=== PATIENT | female | born 1940 | race Caucasian/White ===

== ENCOUNTER 2019-07-09 10:50 | Emergency (ER) | payer MEDICARE, SELFPAY ==
--- NOTE | ~2019-07-09 | XR_ITS ---
EXAMINATION: XR chest 2V DATE: 07/09/2019 11:30 INDICATION: Upper left-sided chest pain. TECHNIQUE: Frontal and lateral views of the chest were obtained. COMPARISON: Chest single view 03/31/2017, chest CT 03/06/2019 FINDINGS: There is mild atelectasis in the lower lung zones. No pleural effusion or pneumothorax. The heart size is normal. Median sternotomy wires and mediastinal surgical clips are seen, likely from p rior coronary artery bypass grafting. IMPRESSION: 1. Mild atelectasis in the lower lung zones. Reviewed, dictated and finalized at location A. ER MANAGEMENT SPECIALIST
--- NOTE | 2019-07-09 11:00 | ECG_ITS ---
Measurements Intervals [place] Rate: 83 P: 60 IA: 164 QRS: 18 QRSD: 129 T: 29 QT: 385 QTc: 453 Interpretive Statements SINUS RHYTHM RIGHT BUNDLE BRANCH BLOCK BASELINE ARTIFACT- I, II, III ABNORMAL ECG Electronically Signed On 07-09-2019 15:18:29 CHEMISTRY INSTRUCTOR by Kevin Mckeon D.O.
[2019-07-09 11:01] VITALS: BP 191/89; PULSE 78; RESP 17; TEMP 36.5; O2SAT 94
[2019-07-09 11:05] VITALS: PULSE 78
[2019-07-09 11:10] LABS: Basophils Percent Auto 0.5 % (0.2-1.2); Eosinophils Absolute Auto 0.1 K/mm3 (0-0.3); Eosinophils Percent Auto 1.4 % (0-4.4); Hematocrit 39.3 % (37.0-47.0); Immature Granulocyte Absolute 0.02 K/mm3 (0.00-0.031); Immature Granulocyte Percent A 0.3 % (0-0.5); Lymphocytes Percent Auto 25.4 % (18.3-44.2); Mean Corpuscular HGB Conc 33.1 g/dl (32-36); Mean Corpuscular Hemoglobin 33.4 pg (26-34); Monocytes Absolute Auto 0.7 K/mm3 (0.1-0.6); Monocytes Percent Auto 9.3 % (2.6-8.5); Neutrophils Percent Auto 63.1 % (45.5-73.1); Platelet Count Result 233 k/mm3 (150-375); Red Blood Count 3.89 M/mm3 (4.2-5.4); Red Cell Distribution Width 12.8 % (11.5-14.5); White Blood Count 7.9 K/mm3 (4.5-10.0)
--- NOTE | 2019-07-09 11:19 | ED.CHESTPAIN ---
HPI - Chest Pain General Chief Complaint: Chest Pain Stated Complaint: cp Time Seen by Provider: 07/09/19 10:57 Source: patient and RN notes reviewed Mode of arrival: ambulatory Limitations: no limitations History of Present Illness HPI narrative: Pt is an 79 y/o female presenting to the ED c/o CP. Pt reports she started experiencing lt sided CP radiating to her upper back this morning when she woke up at 0700. Pt states she has Hx's of CABG x3 and NH 3 years ago, but states her current pain does not feel similar to the previous experience of NH. Pt states she occasionally develops soreness in her lt sided CP intermittent after the CABG. Pt also reports anxiety, ZAFAR, and fatigue, but denies SOB. Pt states she sees Dr. Guillermo as her Housing Counselor, noting she last saw him a few weeks ago. Pt notes she lives alone at her house. Pt notes the pain has alleviated since onset. Pertinent past history: prior NH and CABG (x3) Onset (ago): hour(s) (4) Pain location: left chest Pain radiation: back (Upper) Associated symptoms: other (Anxiety; Headache; Fatigue) Related Data Home Medications Medication Instructions Recorded Confirmed aspirin 07/09/19 carvedilol 07/09/19 lisinopril 07/09/19 Allergies Allergy/AdvReac Type Severity Reaction Status Date / Time No Known Allergies Allergy Unknown Unverified 07/09/19 11:04 Review of Systems Review of Systems: All systems reviewed & are unremarkable except as noted in HPI and below Constitutional: Constitutional: Reports fatigue Cardiovascular: Cardiovascular: Reports chest pain (Lt sided) Respiratory: Respiratory: Reports dyspnea Neurologic: Reports headache(s) Psychiatric: Psychiatric: Reports anxiety PMFSH Past Medical History Medical History Arthritis GERD (gastroesophageal reflux disease) History of blood transfusion HLD (hyperlipidemia) HTN (hypertension) Kidney stone Myocardial infarction Shingles Shoulder fracture Surgical History Surgical History H/O cardiac catheterization H/O: hysterectomy S/P CABG x 3 Family History Family History Mother Hypertension Sibling Patient's sister is in good health Social History Social History Smoking status: Never smoker Alcohol intake: never Gender identity (if verbalized by the patient): Female Exam Const: General: no acute distress and alert Nutritional Appearance: well nourished Other: Frail; Elderly HENMT: Mouth: Yes lip normal Eyes: Conjunctivae: conjunctivae normal Chest: Chest palpation & inspection: tenderness (Mild lt sided) Resp: Effort & Inspection: normal respiratory effort Auscultation: clear to auscultation bilaterally Cardio: Rate: regular rate Rhythm: regular rhythm Back/Spine/Pelvis: Other: Full ROM Skin: General skin exam: normal color Other: Warm; Dry Neuro: General: patient oriented x3 Speech: normal speech Extrem: General: full ROM Psych: Mental Status: mental status grossly normal Affect: Anxious affect present Course Vital Signs Vital signs: Vital Signs Temperature 36.5 C 07/09/19 11:01 Pulse Rate 78 07/09/19 11:01 Respiratory Rate 17 07/09/19 11:01 Blood Pressure 191/89 H 07/09/19 11:01 Pulse Oximetry 94 07/09/19 11:01 Temperature 36.5 C 07/09/19 11:01 Pulse Rate 76 07/09/19 14:57 Respiratory Rate 18 07/09/19 14:57 Blood Pressure 165/67 H 07/09/19 14:57 Pulse Oximetry 98 07/09/19 14:57 MDM - Chest Pain MDM Narrative Medical decision making narrative: Pain is only mildly concerning for cardiac origin. She was initially very anxious. Pain improved spontaneously. No concerning changes on EKG. Troponin negative at 0 and 3 hours. Medical Records Data Attestation: I reviewed the patient's medical records. Lab Data Attestation: I reviewed the pa
[2019-07-09 11:21] LABS: Blood Urea Nitrogen 26 mg/dL (7-17); Calcium 9.8 mg/dL (8.4-10.2); Carbon Dioxide 26 mmol/L (22-30); Chloride 104 mmol/L (98-107); Estimated CRCL calculation 21 ml/min; Estimated Glomerular Filt Rate 33; Glucose 118 mg/dL (65-105); Potassium 4.4 mmol/L (3.4-5.0); Sodium 140 mmol/L (137-145)
[2019-07-09 11:26] LABS: Prothrombin Time 12.4 Seconds (11.1-14.7)
[2019-07-09 11:27] LABS: Partial Thromboplastin Time 25.8 SECONDS (22.3-36.8)
[2019-07-09 11:33] LABS: Troponin I < 0.012 ng/mL (0.000-0.034)
[2019-07-09 12:25] VITALS: BP 161/77; PULSE 66; RESP 18; O2SAT 97
[2019-07-09 13:22] VITALS: BP 181/68; PULSE 67; RESP 18; O2SAT 97
[2019-07-09 14:27] LABS: Troponin I < 0.012 ng/mL (0.000-0.034)
[2019-07-09 14:57] VITALS: BP 165/67; PULSE 76; RESP 18; O2SAT 98
== END 2019-07-09 14:58 | disposition home or self-care (01) ==
PROVIDERS: Emergency Provider Emergency Medicine; PCP Family Medicine
DX: R07.9 Chest pain, unspecified (principal); Z95.1 Presence of aortocoronary bypass graft; I25.10 Atherosclerotic heart disease of native coronary artery without angina pectoris; M19.90 Unspecified osteoarthritis, unspecified site; K21.9 Gastro-esophageal reflux disease without esophagitis; E78.5 Hyperlipidemia, unspecified; I10 Essential (primary) hypertension; Z87.442 Personal history of urinary calculi; I25.2 Old myocardial infarction; I45.10 Unspecified right bundle-branch block
CPT/HCPCS: 36415; 71046; 80048; 84484; 85025; 85610; 85730; 93005; 99284

== ENCOUNTER 2019-08-06 10:35 | Outpatient (CLI) | payer MEDICARE, SELFPAY ==
--- NOTE | ~2019-08-06 | US_ITS ---
EXAMINATION: US carotid duplex BI DATE: 08/06/2019 12:03 INDICATION: Bilateral carotid artery stenosis. TECHNIQUE: Grayscale, color Doppler, and pulsed Doppler images of the cervical carotid arteries were obtained. The degree of vessel stenosis is placed in one of the following categories: normal, <50%, 5 0-69%, >=70% but less than near-occlusion, near-occlusion, or total occlusion. Note that percent sten osis relative to normal distal artery lumen diameter is indirectly measured from velocity measurement s as described by Noble, et al. Radiology 2003; 229:340-346. COMPARISON: Ultrasound 07/20/2018 FINDINGS: RIGHT: The right common carotid artery (CCA) peak systolic velocity (PSV) is 88 cm/s. The right internal car otid artery (ICA) PSV is 163 cm/s. The right ICA end-diastolic velocity (EDV) is 49 cm/s. The right I CA/CCA PSV ratio is 1.9. Grayscale and color Doppler images yield an estimate of >=50% diameter reduc tion from plaque in the ICA. There is antegrade flow in the right vertebral artery. LEFT: The left CCA PSV is 74 cm/s. The left ICA PSV is 170 cm/s. The left ICA EDV is 47 cm/s. The left ICA/ CCA PSV ratio is 2.3. Grayscale and color Doppler images yield an estimate of >=50% diameter reductio n from plaque in the ICA. There is antegrade flow in the left vertebral artery. IMPRESSION: 1. 50-69% stenosis in the right internal carotid artery. 2. 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 Reviewed, dictated and finalized at location A.
== END 2019-08-06 10:36 | disposition home or self-care (01) ==
LOC: ANHIMG 10:46
PROVIDERS: PCP Family Medicine; Visit Provider Internal Medicine Cardiovascular Disease
DX: I65.23 Occlusion and stenosis of bilateral carotid arteries (principal)
CPT/HCPCS: 93880

== ENCOUNTER 2019-12-15 09:21 | Outpatient (CLI) | payer MEDICARE, SELFPAY ==
[2019-12-15 10:47] LABS: Alanine Aminotransferase 17 U/L (4-35); Albumin Level 4.5 g/dL (3.5-5.1); Alkaline Phosphatase 67 U/L (38-126); Aspartate Amino Transferase 27 U/L (14-36); Bilirubin,Total 0.5 mg/dL (0.2-1.3); Blood Urea Nitrogen 30 mg/dL (7-17); Calcium 9.3 mg/dL (8.4-10.2); Carbon Dioxide 26 mmol/L (22-30); Chloride 103 mmol/L (98-107); Cholesterol 167 mg/dL (0-200); Estimated Glomerular Filt Rate 33; Glucose 100 mg/dL (65-105); HDL Direct 61 mg/dL; Potassium 4.7 mmol/L (3.4-5.0); Sodium 138 mmol/L (137-145); Triglycerides 129 mg/dL (<150)
[2019-12-15 10:57] LABS: LDL Cholesterol Direct 75 mg/dL
[2019-12-15 11:55] LABS: Folic Acid > 20.0 ng/mL (2.76->20)
[2019-12-20 05:19] LABS: Methylmalonic Acid 405 nmol/L (87-318)
[2019-12-20 11:19] LABS: Vitamin D 1,25 (OH)2 Total 27 pg/mL (18-72); Vitamin D2 1,25 (OH)2 <8 pg/mL; Vitamin D3 1,25 (OH)2 27 pg/mL
== END 2019-12-15 09:22 | disposition home or self-care (01) ==
PROVIDERS: PCP Family Medicine; Visit Provider Family Medicine
DX: E53.8 Deficiency of other specified B group vitamins (principal); E78.2 Mixed hyperlipidemia; I10 Essential (primary) hypertension; E55.9 Vitamin D deficiency, unspecified
CPT/HCPCS: 36415; 80053; 80061; 82607; 82652; 82746; 83090; 83921

== ENCOUNTER → 2020-01-03 11:29 | Outpatient (CLI) | payer MEDICARE, SELFPAY ==
--- NOTE | ~2020-01-03 | DEXA_ITS ---
Bone Density Report Name: Geraldine Anthony Age: 79 Sex: Female Ethnicity: White Date of : 1940 Indication: osteopenia; height loss; hysterectomy; postmenopausal Referring Provider: DEVAUGHN PEÑALOZA Study: Bone densitometry was performed. Exam Date: January 03, 2020 Accession number: [id number] Bone Density: Region BMD T-score Z-score Classification AP Spine (L1, L4) 0.898 -1.3 1.4 Osteopenia Femoral Neck (Left) 0.528 -2.9 -0.5 Osteoporosis Total Hip (Left) 0.716 -1.9 0.3 Osteopenia Femoral Neck (Right) 0.533 -2.8 -0.5 Osteoporosis Total Hip (Right) 0.724 -1.8 0.3 Osteopenia Total Hip Mean 0.720 -1.9 0.3 Osteopenia World Health Organization criteria for BMD impression classify patients as: Normal (T-score at or above -1.0), Osteopenia (T-score between -1.0 and -2.5), or Osteoporosis (T-score at or below -2.5). 10-year Fracture Risk: FRAX not reported because: Some T-score for Spine Total or Hip Total or Femoral Neck at or below -2.5 Previous Exams: Region Exam Age BMD T-score BMD Change BMD Change Date g/cm2 vs Baseline vs Previous AP Spine(L1, L4) 01/03/2020 79 0.898 -1.3 -0.084* -0.084* 08/23/2015 75 0.981 -0.5 Total Hip(Left) 01/03/2020 79 0.716 -1.9 -0.074* -0.074* 08/23/2015 75 0.790 -1.2 Total Hip(Right) 01/03/2020 79 0.724 -1.8 -0.081* -0.081* 08/23/2015 75 0.805 -1.1 *Denotes significance at 95% confidence level, LSC for AP Spine = 0.022 g/cm2, LSC for Total Hip = 0.027 g/cm2 Clinical Information Provided by Patient: Has used the following medications: Vitamin D Has the following medical conditions: Hysterectomy Patient maximum height was 62.5 Menopause Age: 49 No regular weight bearing exercise Does not regularly consume dairy products Onset of menses at age 12 Number of children 3 Impression: The patient has osteoporosis, based on the Left Femoral Neck T-score. The BMD for the AP Spine(L1, L4) decreased, changing by -0.084 since the last DXA exam. The BMD for the Total Hip(Left) decreased, changing by -0.074 since the last DXA exam. The BMD for the Total Hip(Right) decreased, changing by -0.081 since the last DXA exam. Discussion: INCREASED RISK OF FRACTURE. BONE DENSITY IS UNDESIRABLY LOW AT ONE OR MORE SKELETAL SITES, CONSISTENT WITH POSTMENOPAUSAL OSTEOPOROSIS. This patient's lowest T-score meets the World Health Organization's (WHO) criteria for osteoporosis at o
== END ==
PROVIDERS: PCP Family Medicine; Visit Provider Family Medicine
DX: Z78.0 Asymptomatic menopausal state (principal); M85.89 Other specified disorders of bone density and structure, multiple sites; M81.0 Age-related osteoporosis without current pathological fracture
CPT/HCPCS: 77080

== ENCOUNTER 2020-01-13 08:18 | Emergency (ER) | payer MEDICARE, SELFPAY ==
[2020-01-13 08:22] VITALS: BP 212/101; PULSE 94; RESP 17; TEMP 36.8; O2SAT 98
--- NOTE | 2020-01-13 08:29 | ECG_ITS ---
Measurements Intervals [place] Rate: 80 P: 62 NH: 157 QRS: 33 QRSD: 128 T: 31 QT: 378 QTc: 437 Interpretive Statements SINUS RHYTHM RIGHT BUNDLE BRANCH BLOCK BASELINE WANDER- V1 ABNORMAL ECG Electronically Signed On 01-13-2020 9:51:39 CDT by Kevin Mckeon D.O.
[2020-01-13 08:39] LABS: Basophils Absolute Auto 0.1 K/mm3 (0.0-0.1); Basophils Percent Auto 0.8 % (0.2-1.2); Eosinophils Absolute Auto 0.1 K/mm3 (0-0.3); Eosinophils Percent Auto 2.3 % (0-4.4); Hematocrit 37.5 % (37.0-47.0); Hemoglobin 12.9 g/dL (12.0-15.0); Immature Granulocyte Absolute 0.01 K/mm3 (0.00-0.031); Immature Granulocyte Percent A 0.2 % (0-0.5); Lymphocytes Absolute Auto 2.49 K/mm3 (0.9-3.2); Lymphocytes Percent Auto 40.3 % (18.3-44.2); Mean Corpuscular HGB Conc 34.4 g/dl (32-36); Mean Corpuscular Hemoglobin 34.5 pg (26-34); Mean Corpuscular Volume 100.3 fl (80-100); Monocytes Absolute Auto 0.7 K/mm3 (0.1-0.6); Neutrophils Absolute Auto 2.8 K/mm3 (1.3-6.7); Neutrophils Percent Auto 45.4 % (45.5-73.1); Platelet Count Result 227 k/mm3 (150-375); Red Blood Count 3.74 M/mm3 (4.2-5.4); Red Cell Distribution Width 12.8 % (11.5-14.5); White Blood Count 6.2 K/mm3 (4.5-10.0)
[2020-01-13 08:47] VITALS: BP 195/82; PULSE 82; RESP 14; O2SAT 98
[2020-01-13 08:52] LABS: Alanine Aminotransferase 18 U/L (4-35); Albumin Level 4.4 g/dL (3.5-5.1); Alkaline Phosphatase 54 U/L (38-126); Anion Gap 9 mmol/L (8-16); Aspartate Amino Transferase 28 U/L (14-36); Bilirubin,Total 0.6 mg/dL (0.2-1.3); Blood Urea Nitrogen 21 mg/dL (7-17); Calcium 9.3 mg/dL (8.4-10.2); Carbon Dioxide 24 mmol/L (22-30); Chloride 106 mmol/L (98-107); Estimated CRCL calculation 23 ml/min; Estimated Glomerular Filt Rate 36; Glucose 124 mg/dL (65-105); Potassium 4.3 mmol/L (3.4-5.0); Sodium 139 mmol/L (137-145)
--- NOTE | 2020-01-13 09:54 | ED.GENADULT ---
HPI - General Adult General Chief complaint: Recheck/Abnormal Lab/Rx Stated complaint: elevated bp, headache Time Seen by Provider: 01/13/20 08:49 Source: patient Limitations: no limitations History of Present Illness HPI narrative: 79 years old white female lives alone history of hypertension and anxiety. Been having intermittent elevation of blood pressure mainly at night before she could sleep, patient usually use hydralazine 10 mg as needed, also Ativan. This morning her blood pressure was high, 210/100, patient did not take her blood pressure medication prior to arrival. Currently is anxious and worried Patient denies any fever, chills, nausea, vomiting, shortness of breath, chest pain, headache, lightheadedness or dizziness. Related Data Home Medications Medication Instructions Recorded Confirmed aspirin 07/09/19 12/10/19 hydralazine 25 mg PO PRN PRN 01/13/20 Allergies Allergy/AdvReac Type Severity Reaction Status Date / Time No Known Allergies Allergy Unknown Verified 01/13/20 08:27 Review of Systems Review of Systems: Narrative: CONSTITUTIONAL: Denies fever, chills, or sweats. EYES: Denies visual changes, redness, or discharge. ENT: Denies rhinorrhea, congestion, sore throat, or otalgia. CARDIOVASCULAR: Denies chest pain, palpitations, or edema. RESPIRATORY: Denies cough or dyspnea. GASTROINTESTINAL: Denies abdominal pain, nausea, vomiting, or diarrhea. GENITOURINARY: Denies dysuria or hematuria. SKIN: Denies rash or itching. MUSCULOSKELETAL: Denies back pain, joint pain, or myalgia. NEUROLOGIC: Denies headache, numbness, or weakness. PSYCHIATRIC: Stress and anxiety [facility] Past Medical History Medical History Arthritis CAD (coronary artery disease) GERD (gastroesophageal reflux disease) History of blood transfusion HLD (hyperlipidemia) HTN (hypertension) Kidney stone Myocardial infarction Shingles Shoulder fracture Surgical History Surgical History H/O cardiac catheterization H/O: hysterectomy S/P CABG x 3 Family History Family History Mother Hypertension Sibling Patient's sister is in good health Social History Social History Smoking status: Never smoker Second hand tobacco smoke exposure: No Alcohol intake: never Substance use: never Substance use type: does not use Gender identity (if verbalized by the patient): Female Exam Narrative: Exam Narrative: General appearance: Well-developed, well-nourished Skin: Normal color Head: Normocephalic, nontraumatic Eyes: Clear conjunctiva ENT: Oropharynx normal, ears normal, nose normal Neck: Supple, nontender Chest and respiratory: Airway patent, no respiratory distress, no accessory muscle use Heart: Regular rate/rhythm Abdomen: Soft, nontender, no organomegaly, quiet bowel sounds Vascular: Normal peripheral pulses, normal capillary refill. Musculoskeletal: Normal range of motion, nontender back Neurologic: Alert and oriented ?3, FUR CLEANER is normal as tested, no gross motor deficit Course Course Emergency Course: Improving Vital Signs Vital signs: Vital Signs Temperature 36.8 C 01/13/20 08:22 Pulse Rate 94 01/13/20 08:22 Respiratory Rate 17 01/13/20 08:22 Blood Pressure 212/101 H 01/13/20 08:22 Pulse Oximetry 98 01/13/20 08:22 Temperature 36.8 C 01/13/20 08:22 Pulse Rate 71 01/13/20 11:11 Respiratory Rate 19 01/13/20 11:11 Blood Pressure 156/54 H 01/13/20 11:11 Pulse Oximetry 99 01/13/20 11:11 Medic
[2020-01-13 09:58] LABS: Add Urine Microscopic? NO; Appearance Urine Clear (Clear); Bilirubin Urine Negative (Negative); Blood Urine Negative (Negative); Color Urine Colorless (Yellow); Glucose Urine UA Negative (Negative); Ketones Urine Negative (Negative); Leukocyte Esterase Ur Negative LEU/UL (Negative); Nitrate Urine Negative (Negative); Protein Urine Negative (Negative); Specific Grav Ur 1.006 (1.001-1.035); Urobilinogen Urine Negative mg/dL (<2.0)
[2020-01-13 10:02] VITALS: BP 183/97; PULSE 80; RESP 25; O2SAT 97
[2020-01-13] MEDS: hydrALAZINE HCL 20 MG/ML VIAL 10 MG IV PUSH (10:18)
[2020-01-13 10:38] VITALS: BP 157/68; PULSE 80; RESP 17; O2SAT 98
[2020-01-13] MEDS: lisinopriL 20 MG TABLET PO (10:38)
[2020-01-13 11:11] VITALS: BP 156/54; PULSE 71; RESP 19; O2SAT 99
== END 2020-01-13 12:00 | disposition home or self-care (01) ==
PROVIDERS: Emergency Provider Emergency Medicine; PCP Family Medicine
DX: I10 Essential (primary) hypertension (principal); F41.9 Anxiety disorder, unspecified; I25.10 Atherosclerotic heart disease of native coronary artery without angina pectoris; K21.9 Gastro-esophageal reflux disease without esophagitis; E78.5 Hyperlipidemia, unspecified; I25.2 Old myocardial infarction; Z95.1 Presence of aortocoronary bypass graft; Z79.82 Long term (current) use of aspirin
CPT/HCPCS: 36415; 80053; 81003; 85025; 93005; 96374; 99284; A9270; J0360

== ENCOUNTER 2020-01-18 16:56 | Emergency (ER) | payer MEDICARE, SELFPAY ==
--- NOTE | ~2020-01-18 | XR_ITS ---
XR chest 1V portable 01/18/2020 17:40 Indication: Weakness. History of HI. Procedure: AP portable chest Comparison: Comparison to multiple prior studies sequentially, with oldest reviewed study dated 04/25. Findings: Status post median sternotomy. Borderline heart size. Left basilar airspace disease, compat ible with pneumonia. The lungs are hyperinflated which is consistent with, but not diagnostic of chronic disease manager pratima obstructive pulmonary disease. There is scoliosis. No acute osseous abnormality. Impression: 1: Left basilar airspace disease, compatible with pneumonia. Reviewed, dictated and finalized at location A. Impression: 1: Left basilar airspace disease, compatible with pneumonia.
[2020-01-18 16:57] VITALS: BP 156/114; PULSE 77; RESP 16; TEMP 37.6; O2SAT 98
--- NOTE | 2020-01-18 17:19 | ED.GENADULT ---
HPI - General Adult General Chief complaint: Weakness Stated complaint: WEAKNESS,ZAFAR Source: patient Limitations: no limitations History of Present Illness HPI narrative: Patient is 80 years old white female lives alone, presents to the ED with up-and-down blood pressure, feeling jittery inside and shaky outside, feeling tingling and numbness of the upper extremity and face, feeling weak with intermittent stomach upset. Patient have lorazepam to be used as needed. Patient did not use it in the last few days. Currently patient feeling much better. Patient is telling me that she feels better right now because she feels secure because she is in the hospital. Related Data Home Medications Medication Instructions Recorded Confirmed aspirin 07/09/19 12/10/19 hydralazine 25 mg PO PRN PRN 01/13/20 Allergies Allergy/AdvReac Type Severity Reaction Status Date / Time No Known Allergies Allergy Unknown Verified 01/18/20 17:01 [facility] Social History Social History Smoking status: Never smoker Second hand tobacco smoke exposure: No Alcohol intake: never Substance use: never Substance use type: does not use Gender identity (if verbalized by the patient): Female Exam Narrative: Exam Narrative: General appearance: Well-developed, well-nourished, anxious Skin: Normal color Head: Normocephalic, nontraumatic Eyes: Clear conjunctiva ENT: Oropharynx normal, ears normal, nose normal Neck: Supple, nontender Chest and respiratory: Airway patent, no respiratory distress, no accessory muscle use Heart: Regular rate/rhythm Abdomen: Soft, nontender, no organomegaly, quiet bowel sounds Vascular: Normal peripheral pulses, normal capillary refill. Musculoskeletal: Normal range of motion, nontender back Neurologic: Alert and oriented ?3, COLLEGE SCOUTING COORDINATOR is normal as tested, no gross motor deficit Course Course Emergency Course: Stable, improving Vital Signs Vital signs: Vital Signs Temperature 37.6 C H 01/18/20 16:57 Pulse Rate 77 01/18/20 16:57 Respiratory Rate 16 01/18/20 16:57 Blood Pressure 156/114 H 01/18/20 16:57 Pulse Oximetry 98 01/18/20 16:57 Temperature 37.6 C H 01/18/20 16:57 Pulse Rate 79 01/18/20 17:38 Respiratory Rate 18 01/18/20 17:38 Blood Pressure 156/114 H 01/18/20 17:38 Pulse Oximetry 99 01/18/20 17:38 Medical Decision Making MDM Narrative Medical decision making narrative: Patient presents with labile hypertension, weakness, paresthesia. My concern is anxiety related symptoms, electrolyte imbalance, urinary tract infection, pneumonia. Labs, chest x-ray, UA, Ativan orally ordered. Further plan to follow , Chest x-ray showed pneumonia. Normal white count, and no fever, saturation 98% on room air. Patient can go home on Levaquin. COVID-19 test done. Differential Diagnosis Differential Diagnosis: Electrolyte imbalance, pneumonia, urinary tract infection, anxiety related symptoms Vital Signs Vital Signs: Vital Signs Temperature 37.6 C H 01/18/20 16:57 Pulse Rate 77 01/18/20 16:57 Respiratory Rate 16 01/18/20 16:57 Blood Pressure 156/114 H 01/18/20 16:57 Pulse Oximetry 98 01/18/20 16:57 Temperature 37.6 C H 01/18/20 16:57 Pulse Rate 79 01/18/20 17:38 Respiratory Rate 18 01/18/20 17:38 Blood Pressure 156/114 H 01/18/20 17:38 Pulse Oximetry 99 01/18/20 17:38 Lab Data Result diagrams: 01/18/20 17:31 01/18/20 17:31 Labs: Lab Results 01/18/20 01/18/20 Range/Units 17:31 17:31 WBC 7.2 (4.5-10.0) K/mm3 RBC 3.57 L (4.2-5.4) M/mm3 Hgb 12.0 (12.0-15.0) g/dL Hct 35.4 L (3
[2020-01-18 17:38] VITALS: BP 156/114; PULSE 79; RESP 18; O2SAT 99
[2020-01-18 17:39] LABS: Basophils Percent Auto 0.6 % (0.2-1.2); Eosinophils Absolute Auto 0.1 K/mm3 (0-0.3); Eosinophils Percent Auto 1.3 % (0-4.4); Hematocrit 35.4 % (37.0-47.0); Immature Granulocyte Absolute 0.01 K/mm3 (0.00-0.031); Immature Granulocyte Percent A 0.1 % (0-0.5); Lymphocytes Absolute Auto 2.93 K/mm3 (0.9-3.2); Lymphocytes Percent Auto 40.7 % (18.3-44.2); Mean Corpuscular HGB Conc 33.9 g/dl (32-36); Mean Corpuscular Hemoglobin 33.6 pg (26-34); Mean Corpuscular Volume 99.2 fl (80-100); Mean Platelet Volume 9.8 fl (7.4-10.4); Monocytes Absolute Auto 0.9 K/mm3 (0.1-0.6); Monocytes Percent Auto 12.5 % (2.6-8.5); Neutrophils Absolute Auto 3.2 K/mm3 (1.3-6.7); Neutrophils Percent Auto 44.8 % (45.5-73.1); Platelet Count Result 227 k/mm3 (150-375); Red Blood Count 3.57 M/mm3 (4.2-5.4); Red Cell Distribution Width 12.6 % (11.5-14.5); White Blood Count 7.2 K/mm3 (4.5-10.0)
[2020-01-18 17:53] LABS: Alanine Aminotransferase 18 U/L (4-35); Albumin Level 4.3 g/dL (3.5-5.1); Alkaline Phosphatase 64 U/L (38-126); Anion Gap 9 mmol/L (8-16); Aspartate Amino Transferase 25 U/L (14-36); Bilirubin,Total 0.4 mg/dL (0.2-1.3); Blood Urea Nitrogen 26 mg/dL (7-17); Calcium 9.5 mg/dL (8.4-10.2); Carbon Dioxide 25 mmol/L (22-30); Chloride 102 mmol/L (98-107); Estimated CRCL calculation 20 ml/min; Estimated Glomerular Filt Rate 31; Glucose 103 mg/dL (65-105); Potassium 4.4 mmol/L (3.4-5.0); Sodium 136 mmol/L (137-145)
[2020-01-18] MEDS: LORazepam 0.5 MG TABLET 1 MG PO (18:02)
[2020-01-18 18:03] LABS: Troponin I < 0.012 ng/mL (0.000-0.034)
[2020-01-18] MEDS: ACETAMINOPHEN 325 MG TABLET 650 MG PO (18:41)
[2020-01-18 18:45] VITALS: BP 191/92; PULSE 70; RESP 20; O2SAT 97
[2020-01-19 18:19] LABS: SARS-CoV-2 RNA PCR Negative
== END 2020-01-18 18:45 | disposition home or self-care (01) ==
PROVIDERS: Emergency Provider Emergency Medicine; PCP Family Medicine
DX: J18.9 Pneumonia, unspecified organism (principal); F41.9 Anxiety disorder, unspecified; Z20.828 Contact with and (suspected) exposure to other viral communicable diseases
CPT/HCPCS: 36415; 71045; 80053; 84484; 85025; 87040; 87635; 99284; A9270; C9803; U0003

== ENCOUNTER 2020-10-30 09:38 | Outpatient (CLI) | payer MEDICARE, SELFPAY ==
--- NOTE | ~2020-10-30 | US_ITS ---
EXAMINATION: US carotid duplex BI DATE: 10/30/2020 10:09 INDICATION: Carotid stenosis TECHNIQUE: Grayscale, color Doppler, and pulsed Doppler images of the cervical carotid arteries were obtained. The degree of vessel stenosis is placed in one of the following categories: normal, <50%, 5 0-69%, >=70% but less than near-occlusion, near-occlusion, or total occlusion. Note that percent sten osis relative to normal distal artery lumen diameter is indirectly measured from velocity measurement s as described by Noble, et al. Radiology 2003; 229:340-346. Notes: Normal: Peak systolic velocity <125 centimeters/sec and no plaque <50%. Peak systolic velocity <125 ( EDV <40; ICA/CCA PSV ratio <2.0; used these factors only a tandem lesions or low cardiac output or co ntralateral disease) 50-69 %: PSV 125-230 (EDV 40-100; ratio 2-4) >= 70% but less than near occlusion: PSV greater than 230 (EDV > 100; ratio> 4.0) Near Occlusion: PSV that is variable; markedly narrowed lumen Occlusion: Absent flow on color/spectral Doppler and no lumen on vela scale. COMPARISON: None. FINDINGS: RIGHT: The right common carotid artery (CCA) peak systolic velocity (PSV) is 81 cm/s. The right internal car otid artery (ICA) PSV is 126 cm/s. The right ICA end-diastolic velocity (EDV) is 28 cm/s. The right I CA/CCA PSV ratio is 1.5. The external carotid artery (ECA) PSV is 14 cm/s. There is antegrade flow in the right vertebral artery. LEFT: The left CCA PSV is 77 cm/s. The left ICA PSV is 151 cm/s. The left ICA EDV is 33 cm/s. The left ICA/ CCA PSV ratio is 2. The ECA PSV is 167 cm/s. There is antegrade flow in the left vertebral artery. IMPRESSION: 1. Less than 50% stenosis in the right internal carotid artery by sonographic criteria. 2. 50-69% stenosis in the left internal carotid artery by sonographic criteria. Reviewed, dictated and finalized at location B. IMPRESSION: 1. Less than 50% stenosis in the right internal carotid artery by sonographic c riteria. 2. 50-69% stenosis in the left internal carotid artery by sonographic criteria .
== END 2020-10-30 09:39 | disposition home or self-care (01) ==
PROVIDERS: PCP Family Medicine; Visit Provider Internal Medicine Cardiovascular Disease
DX: I77.9 Disorder of arteries and arterioles, unspecified (principal); R09.89 Other specified symptoms and signs involving the circulatory and respiratory systems; I65.23 Occlusion and stenosis of bilateral carotid arteries
CPT/HCPCS: 93880

== ENCOUNTER 2021-01-16 09:09 | Outpatient (CLI) | payer MEDICARE, SELFPAY ==
[2021-01-16 09:45] LABS: Basophils Percent Auto 0.7 % (0.2-1.2); Eosinophils Absolute Auto 0.1 K/mm3 (0-0.3); Eosinophils Percent Auto 2.4 % (0-4.4); Hematocrit 36.5 % (37.0-47.0); Hemoglobin 12.2 g/dL (12.0-15.0); Immature Granulocyte Absolute 0.02 K/mm3 (0.00-0.031); Immature Granulocyte Percent A 0.3 % (0-0.5); Lymphocytes Absolute Auto 2.29 K/mm3 (0.9-3.2); Lymphocytes Percent Auto 38.7 % (18.3-44.2); Mean Corpuscular HGB Conc 33.4 g/dl (32-36); Mean Corpuscular Hemoglobin 33.9 pg (26-34); Mean Corpuscular Volume 101.4 fl (80-100); Mean Platelet Volume 9.9 fl (7.4-10.4); Monocytes Absolute Auto 0.9 K/mm3 (0.1-0.6); Monocytes Percent Auto 15.7 % (2.6-8.5); Neutrophils Absolute Auto 2.5 K/mm3 (1.3-6.7); Neutrophils Percent Auto 42.2 % (45.5-73.1); Platelet Count Result 221 k/mm3 (150-375); Red Cell Distribution Width 12.6 % (11.5-14.5); White Blood Count 5.9 K/mm3 (4.5-10.0)
[2021-01-16 11:08] LABS: Alanine Aminotransferase 18 U/L (4-35); Albumin Level 4.2 g/dL (3.5-5.1); Alkaline Phosphatase 65 U/L (38-126); Anion Gap 10 mmol/L (8-16); Aspartate Amino Transferase 31 U/L (14-36); Bilirubin,Total 0.6 mg/dL (0.2-1.3); Blood Urea Nitrogen 24 mg/dL (7-17); Calcium 9.3 mg/dL (8.4-10.2); Carbon Dioxide 24 mmol/L (22-30); Chloride 103 mmol/L (98-107); Cholesterol 156 mg/dL (0-200); Estimated Glomerular Filt Rate 33; Glucose 106 mg/dL (65-110); HDL Direct 64 mg/dL; Potassium 4.4 mmol/L (3.4-5.0); Sodium 137 mmol/L (137-145); Triglycerides 95 mg/dL (<150)
[2021-01-16 11:18] LABS: LDL Cholesterol Direct 63 mg/dL
== END 2021-01-16 09:10 | disposition home or self-care (01) ==
PROVIDERS: PCP Family Medicine; Visit Provider Physician Assistant
DX: E78.5 Hyperlipidemia, unspecified (principal); I10 Essential (primary) hypertension; I25.10 Atherosclerotic heart disease of native coronary artery without angina pectoris
CPT/HCPCS: 36415; 80053; 80061; 84443; 85025

== ENCOUNTER 2021-02-02 09:57 | Outpatient (CLI) | payer MEDICARE, SELFPAY ==
--- NOTE | ~2021-02-02 | XR_ITS ---
EXAMINATION: XR chest 2V DATE: 02/02/2021 10:14 INDICATION: Leukocytosis. TECHNIQUE: Frontal and lateral views of the chest were obtained. COMPARISON: Chest single view 01/18/20, chest CT 03/06/2019, chest two views 07/09/2019 FINDINGS: There is mild scarring at the lung apices. There is mild atelectasis at the lung bases. The re is blunting of right posterior costophrenic angle. No pneumothorax. The heart size is normal. Medi an sternotomy wires and mediastinal surgical clips are seen, likely from prior coronary artery bypass grafting. IMPRESSION: 1. Blunting of right posterior costophrenic angle, consistent with scarring versus tiny pleural effus ion. 2. Mild atelectasis at the lung bases and mild scarring at the lung apices. Reviewed, dictated and finalized at location A. IMPRESSION: 1. Blunting of right posterior costophrenic angle, consistent with scarring ran alba tiny pleural effusion. 2. Mild atelectasis at the lung bases and mild scarring at the lung apices.
== END 2021-02-02 09:58 | disposition home or self-care (01) ==
LOC: ANHIMG 10:01
PROVIDERS: PCP Family Medicine; Visit Provider Physician Assistant
DX: D72.829 Elevated white blood cell count, unspecified (principal); J98.11 Atelectasis
CPT/HCPCS: 71046

== ENCOUNTER 2021-02-08 10:24 | Outpatient (CLI) | payer MEDICARE, SELFPAY ==
--- NOTE | ~2021-02-08 | CT_ITS ---
EXAMINATION: CT diagnostic chest wo con DATE: 02/08/2021 10:58 INDICATION: Leukocytosis TECHNIQUE: Computed tomography (CT) of the chest was performed without intravenous contrast. Automate d exposure control and iterative reconstruction technique were employed. Exam dose: 134.34 mGy-cm to julio cesar exam DLP. COMPARISON: 02/02/2021 2 view chest 03/06/2019 CT pulmonary scan FINDINGS: Status post sternotomy. No thoracic aortic aneurysm. Aortic, great vessel and coronary mary ry calcifications. Cardiomegaly. No pericardial or pleural effusion. No hilar or mediastinal mass lesion or lymphadenopathy. There is mild to moderate sliding hiatal hernia. Normal morphology of the adrenal glands. Mild anterior wedge compression fracture of T1, stable since 03/06/2019. Chronic mild discoid scarring at the lung bases including middle lobe and left lower lobe. Calcified 3 mm nodule in the peripheral left lower lung. No suspicious pulmonary mass lesion. No pulm onary consolidation. IMPRESSION: Status post sternotomy. Cardiomegaly Hiatal hernia Mild anterior wedge stable compression fracture of T1 Reviewed, dictated and finalized at Location A. Reviewed, dictated and finalized at location A.
== END 2021-02-08 10:25 | disposition home or self-care (01) ==
PROVIDERS: PCP Family Medicine; Visit Provider Physician Assistant
DX: M48.54XA Collapsed vertebra, not elsewhere classified, thoracic region, initial encounter for fracture (principal); K44.9 Diaphragmatic hernia without obstruction or gangrene; I51.7 Cardiomegaly
CPT/HCPCS: 71250

== ENCOUNTER 2022-01-31 09:36 | Outpatient (CLI) | payer MEDICARE, SELFPAY ==
[2022-01-31 10:37] LABS: Basophils Percent Auto 0.3 % (0.2-1.2); Eosinophils Absolute Auto 0.1 K/mm3 (0-0.3); Eosinophils Percent Auto 1.4 % (0-4.4); Hematocrit 36.2 % (37.0-47.0); Hemoglobin 12.2 g/dL (12.0-15.0); Immature Granulocyte Absolute 0.02 K/mm3 (0.00-0.031); Immature Granulocyte Percent A 0.3 % (0-0.5); Lymphocytes Absolute Auto 1.81 K/mm3 (0.9-3.2); Lymphocytes Percent Auto 30.7 % (18.3-44.2); Mean Corpuscular HGB Conc 33.7 g/dl (32-36); Mean Corpuscular Hemoglobin 33.7 pg (26-34); Mean Platelet Volume 10.6 fl (7.4-10.4); Monocytes Absolute Auto 0.8 K/mm3 (0.1-0.6); Monocytes Percent Auto 13.9 % (2.6-8.5); Neutrophils Absolute Auto 3.2 K/mm3 (1.3-6.7); Neutrophils Percent Auto 53.4 % (45.5-73.1); Nucleated Red Blood Cells Perc 0.5 % (0.0-0.2); Platelet Count Result 268 k/mm3 (150-375); Red Blood Count 3.62 M/mm3 (4.2-5.4); Red Cell Distribution Width 12.5 % (11.5-14.5); White Blood Count 5.9 K/mm3 (4.5-10.0)
[2022-01-31 10:45] LABS: Alanine Aminotransferase 20 U/L (6-35); Albumin Level 4.3 g/dL (3.5-5.1); Alkaline Phosphatase 58 U/L (38-126); Anion Gap 9 mmol/L (8-16); Aspartate Amino Transferase 27 U/L (14-36); Bilirubin,Total 0.6 mg/dL (0.2-1.3); Blood Urea Nitrogen 21 mg/dL (7-17); Calcium 9.2 mg/dL (8.4-10.2); Carbon Dioxide 26 mmol/L (22-30); Chloride 106 mmol/L (98-107); Cholesterol 156 mg/dL (0-200); Estimated Glomerular Filt Rate 33; Glucose 102 mg/dL (65-110); HDL Direct 49 mg/dL; Sodium 141 mmol/L (137-145); Triglycerides 142 mg/dL (<150)
[2022-01-31 10:56] LABS: LDL Cholesterol Direct 61 mg/dL
[2022-02-04 15:30] LABS: Vitamin D 1,25 (OH)2 Total 22 pg/mL (18-72); Vitamin D2 1,25 (OH)2 <8 pg/mL; Vitamin D3 1,25 (OH)2 22 pg/mL
== END 2022-01-31 09:37 | disposition home or self-care (01) ==
LOC: ANHLAB 09:40
PROVIDERS: PCP Family Medicine; Visit Provider Family Medicine
DX: E55.9 Vitamin D deficiency, unspecified (principal); E78.2 Mixed hyperlipidemia; E03.9 Hypothyroidism, unspecified; I12.9 Hypertensive chronic kidney disease with stage 1 through stage 4 chronic kidney disease, or unspecified chronic kidney disease; N18.32 Chronic kidney disease, stage 3b
CPT/HCPCS: 36415; 80053; 80061; 82652; 84443; 85025

== ENCOUNTER 2022-03-01 11:31 | Emergency (ER) | payer MEDICARE, SELFPAY ==
--- NOTE | ~2022-03-01 | XR_ITS ---
EXAMINATION: XR hip RT min 3V w AP pelvis DATE: 03/01/2022 12:21 INDICATION: Hip pain. TECHNIQUE: An anteroposterior view of the pelvis and 3 views of right hip were obtained. COMPARISON: None. FINDINGS: There is levoscoliosis and severe spondylosis of lumbar spine. No fracture. There is mild o steoarthritis of the hips. Osteitis pubis is noted. IMPRESSION: 1. Mild osteoarthritis of the hips. Reviewed, dictated and finalized at location B.
[2022-03-01 11:32] VITALS: BP 153/86; PULSE 86; RESP 16; TEMP 36.8; O2SAT 97
--- NOTE | 2022-03-01 11:54 | ED.EXTPRO ---
HPI - Extremity Problem General Chief complaint: Extremity Problem,Nontraumatic Stated complaint: right hip pain-denies trauma Time Seen by Provider: 03/01/22 11:35 History of Present Illness HPI Narrative: 82-year-old female presents to the emergency room for evaluation of right buttocks pain. Patient states she was recently doing a lot of hiking up and down hills, and began to experience pain in her right gluteal area. Patient denies any injury or trauma. Presents the emergency room concerned that she might have a stress fracture in her hip. Patient states that she took Tylenol on 1 occasion that did not alleviate her pain. Reports pain is worse with ambulation and does not radiate. Related Data Home Medications Medication Instructions Recorded Confirmed aspirin 81 mg chewable tablet 07/09/19 01/29/22 hydralazine 10 mg tablet 10 mg PO BID PRN 09/24/21 01/29/22 Allergies Allergy/AdvReac Type Severity Reaction Status Date / Time No Known Allergies Allergy Unknown Verified 01/29/22 14:42 Review of Systems Review of Systems: CONSTITUTIONAL: Denies fever, chills, or sweats. EYES: Denies visual changes, redness, or discharge. ENT: Denies rhinorrhea, congestion, sore throat, or otalgia. CARDIOVASCULAR: Denies chest pain, palpitations, or edema. RESPIRATORY: Denies cough or dyspnea. GASTROINTESTINAL: Denies abdominal pain, nausea, vomiting, or diarrhea. GENITOURINARY: Denies dysuria or hematuria. SKIN: Denies rash or itching. MUSCULOSKELETAL: Reports right gluteal pain NEUROLOGIC: Denies headache, numbness, dizziness, or weakness. PSYCHIATRIC: Denies anxiety or depression. [facility] Past Medical History Medical History Arthritis CAD (coronary artery disease) Chronic kidney disease, stage 3b NAYELI (generalized anxiety disorder) GERD (gastroesophageal reflux disease) History of blood transfusion HLD (hyperlipidemia) HTN (hypertension) Kidney stone Myocardial infarction Shingles Shoulder fracture Surgical History Surgical History H/O cardiac catheterization H/O: hysterectomy S/P CABG x 3 Family History Family History Mother Hypertension Sibling Patient's sister is in good health Social History Social History Social History: Smoking status: Never smoker Second hand tobacco smoke exposure: No Alcohol intake: never Substance use: never Substance use type: does not use Gender identity (if verbalized by the patient): Female Sexual Orientation (if Verbalized by the Patient): Straight or Heterosexual Exam Narrative: GENERAL: Well-appearing, well-nourished, no physical limitations, and in no acute distress. HEAD: Normocephalic, atraumatic. EYES: Conjunctivae normal, PERRLA and EOMI. CHEST: Clear to auscultation. No respiratory distress. No wheezes rales or rhonchi. No tenderness. HEART: Regular rate and rhythm. No murmur heard. Normal peripheral pulses. BACK: No CVA tenderness; No cervical/thoracic/lumbar tenderness, step-offs, bony abnormality; FROM EXTREMITIES: Normal range of motion. No edema. No clubbing or cyanosis. Point tenderness to the gluteal region. No pain over the iliac crest, greater trochanter or pubis region. Full range of motion of the right hip. No shortening or internal rotation noted SKIN: Warm, dry, no rash. No noted wounds NEURO: No focal deficits. Alert and oriented x3. MAEW. CN's II-XI intact bilaterally, PSYCH: Cooperative. Normal mood and affect. Course Vital Signs Vital signs: Vital Signs Temperature 36.8 C 03/01/22 11:32 Pulse Rate 86 03/01/22 11:32 Respiratory Rate 16 03/01/22 11:32 Blood Pressure 153/86 H 03/01/22 11:32 Pulse Oximetry 97 03/01/22 11:32 Oxygen Delivery Room Air 03/01/22 11:32 Temperature 36.
[2022-03-01] MEDS: DEXAMETHASONE SOD PHOS INJ 4 MG/ML VIAL IM (12:57)
[2022-03-01 13:11] VITALS: BP 170/76; PULSE 76; RESP 16; O2SAT 98
== END 2022-03-01 13:15 | disposition home or self-care (01) ==
PROVIDERS: Emergency Provider Nurse Practitioner Family; PCP Family Medicine
DX: M79.18 Myalgia, other site (principal); I25.10 Atherosclerotic heart disease of native coronary artery without angina pectoris; I25.2 Old myocardial infarction; E78.5 Hyperlipidemia, unspecified; I10 Essential (primary) hypertension; K21.9 Gastro-esophageal reflux disease without esophagitis; M16.0 Bilateral primary osteoarthritis of hip; Z90.710 Acquired absence of both cervix and uterus; Z87.442 Personal history of urinary calculi; Z95.1 Presence of aortocoronary bypass graft
CPT/HCPCS: 73502; 96372; 99283; J1100

== ENCOUNTER 2022-04-05 21:14 | Emergency (ER) | payer MEDICARE, SELFPAY ==
[2022-04-05 21:24] VITALS: BP 156/77
--- NOTE | 2022-04-05 21:30 | PC.NURSE ---
After sign writer hand obtain patient's blood pressure in triage, patient decided not to be seen anymore and to follow up with her PCP. Pan Helper explained risks of leaving and patient still decided to leave. Patient was alert and ambulatory upon leaving the ED.
== END 2022-04-05 21:30 | disposition left against medical advice (07) ==
PROVIDERS: PCP Family Medicine
DX: I10 Essential (primary) hypertension (principal)
CPT/HCPCS: 99199

== ENCOUNTER 2022-04-22 12:39 | Outpatient (CLI) | payer MEDICARE, SELFPAY ==
--- NOTE | ~2022-04-22 | US_ITS ---
EXAMINATION: US carotid duplex BI DATE: 04/22/2022 14:05 INDICATION: Bilateral carotid bruit. Vertigo. TECHNIQUE: Grayscale, color Doppler, and pulsed Doppler images of the cervical carotid arteries were obtained. The degree of vessel stenosis is placed in one of the following categories: normal, <50%, 5 0-69%, >=70% but less than near-occlusion, near-occlusion, or total occlusion. Note that percent sten osis relative to normal distal artery lumen diameter is indirectly measured from velocity measurement s as described by Noble, et al. Radiology 2003; 229:340-346. Notes: Normal: Peak systolic velocity <125 centimeters/sec and no plaque <50%. Peak systolic velocity <125 ( EDV <40; ICA/CCA PSV ratio <2.0; used these factors only a tandem lesions or low cardiac output or co ntralateral disease) 50-69 %: PSV 125-230 (EDV 40-100; ratio 2-4) >= 70% but less than near occlusion: PSV greater than 230 (EDV > 100; ratio> 4.0) Near Occlusion: PSV that is variable; markedly narrowed lumen Occlusion: Absent flow on color/spectral Doppler and no lumen on vela scale. COMPARISON: Ultrasound dated 10/30/2020. FINDINGS: RIGHT: The right common carotid artery (CCA) peak systolic velocity (PSV) is 101 cm/s. The right internal ca rotid artery (ICA) PSV is 129 cm/s. The right ICA end-diastolic velocity (EDV) is 31 cm/s. The right ICA/CCA PSV ratio is 1.3. The external carotid artery (ECA) PSV is 144 cm/s. There is antegrade flow in the right vertebral artery. No significant internal carotid artery narrowing noted on vela scale a nd color Doppler images. LEFT: The left CCA PSV is 106 cm/s. The left ICA PSV is 103 cm/s. The left ICA EDV is 18 cm/s. The left ICA /CCA PSV ratio is 1.0. The ECA PSV is 98 cm/s. There is antegrade flow in the left vertebral artery. IMPRESSION: 1. Less than 50% stenosis in the right internal carotid artery by sonographic criteria. 2. Less than 50% stenosis in the left internal carotid artery by sonographic criteria. Reviewed, dictated and finalized at location A. IS COUNSELOR IMPRESSION: 1. Less than 50% stenosis in the right internal carotid artery by sonographic c kobi. 2. Less than 50% stenosis in the left internal carotid artery by sonographic cr santi.
== END 2022-04-22 12:40 | disposition home or self-care (01) ==
PROVIDERS: PCP Family Medicine; Visit Provider Internal Medicine Cardiovascular Disease
DX: I77.9 Disorder of arteries and arterioles, unspecified (principal); R90.89 Other abnormal findings on diagnostic imaging of central nervous system; I65.23 Occlusion and stenosis of bilateral carotid arteries
CPT/HCPCS: 93880

== ENCOUNTER 2022-08-02 19:06 | Emergency (ER) | payer MEDICARE, SELFPAY ==
[2022-08-02] VITALS (18 sets, daily range): BP systolic 162–222; BP diastolic 58–89; PULSE 77–100; RESP 15–25; TEMP 36.3–36.6; O2SAT 94–99
--- NOTE | ~2022-08-02 | XR_ITS ---
EXAMINATION: XR chest 1V portable DATE: 08/02/2022 20:38 INDICATION: Hypertension TECHNIQUE: frontal view of the chest was obtained. COMPARISON: Chest radiograph dated 02/02/2021 FINDINGS: Mild streaky opacities at the bilateral lung bases and favor atelectasis/scarring over pneumonia. Joaquín cified nodule at the left midlung zone consistent with old granulomatous disease. No pulmonary edema, pleural effusion or pneumothorax. Heart size is normal. Median sternotomy wires and mediastinal surg ical clips are seen, likely from prior coronary artery bypass grafting. Small hiatal hernia. IMPRESSION: 1. . Mild bibasilar atelectasis. 2. Small hiatal hernia. Reviewed, dictated and finalized at location A. ET COATER
--- NOTE | 2022-08-02 20:27 | ECG_ITS ---
Measurements Intervals [place] Rate: 75 P: 41 CO: 192 QRS: 35 QRSD: 129 T: 24 QT: 399 QTc: 448 Interpretive Statements SINUS RHYTHM RIGHT BUNDLE BRANCH BLOCK MINIMAL Q WAVES- INFERIOR LEADS BASELINE ARTIFACT- I, II, III, AVR, AVL, AVF, V3 ABNORMAL ECG COMPARED TO ECG 01/13/2020 08:36:48 NO SIGNIFICANT CHANGES Electronically Signed On 08-02-2022 21:05:01 [employer]ER by Kevin Mckeon D.O.
[2022-08-02] MEDS: hydrALAZINE HCL 20 MG/ML VIAL 10 MG IV PUSH (20:47)
[2022-08-02] MEDS: lisinopriL 10 MG TABLET PO (20:47)
[2022-08-02 21:02] LABS: Basophils Percent Auto 0.4 % (0.2-1.2); Eosinophils Absolute Auto 0.1 K/mm3 (0-0.3); Eosinophils Percent Auto 1.3 % (0-4.4); Hematocrit 37.7 % (37.0-47.0); Hemoglobin 12.5 g/dL (12.0-15.0); Immature Granulocyte Absolute 0.02 K/mm3 (0.00-0.031); Immature Granulocyte Percent A 0.3 % (0-0.5); Lymphocytes Absolute Auto 2.87 K/mm3 (0.9-3.2); Mean Corpuscular HGB Conc 33.2 g/dl (32-36); Mean Corpuscular Hemoglobin 33.8 pg (26-34); Mean Corpuscular Volume 101.9 fl (80-100); Mean Platelet Volume 9.7 fl (7.4-10.4); Monocytes Absolute Auto 1.1 K/mm3 (0.1-0.6); Monocytes Percent Auto 15.3 % (2.6-8.5); Neutrophils Absolute Auto 3.1 K/mm3 (1.3-6.7); Neutrophils Percent Auto 42.7 % (45.5-73.1); Platelet Count Result 226 k/mm3 (150-375); White Blood Count 7.2 K/mm3 (4.5-10.0)
[2022-08-02 21:13] LABS: INR 1.1; Prothrombin Time 13.7 Seconds (11.1-14.7)
[2022-08-02 21:14] LABS: Alanine Aminotransferase 22 U/L (6-35); Albumin Level 4.5 g/dL (3.5-5.1); Alkaline Phosphatase 66 U/L (38-126); Anion Gap 7 mmol/L (8-16); Aspartate Amino Transferase 26 U/L (14-36); Bilirubin,Total 0.5 mg/dL (0.2-1.3); Blood Urea Nitrogen 25 mg/dL (7-17); Calcium 9.3 mg/dL (8.4-10.2); Carbon Dioxide 26 mmol/L (22-30); Chloride 104 mmol/L (98-107); Estimated CRCL calculation 20 ml/min; Estimated Glomerular Filt Rate 33; Glucose 102 mg/dL (65-110); Potassium 4.4 mmol/L (3.4-5.0); Sodium 137 mmol/L (137-145)
[2022-08-02 21:15] LABS: Lactic Acid Reflex 0.7 mmol/L (0.7-2.0)
[2022-08-02 21:26] LABS: Troponin I < 0.012 ng/mL (0.000-0.034)
[2022-08-02 21:35] LABS: Appearance Urine Clear (Clear); Bilirubin Urine Negative (Negative); Blood Urine Negative (Negative); Color Urine Yellow (Yellow); Glucose Urine UA Negative (Negative); Ketones Urine Negative (Negative); Leukocyte Esterase Ur Negative LEU/UL (Negative); Nitrate Urine Negative (Negative); Protein Urine Negative (Negative); Urobilinogen Urine 0.2 mg/dL (<2.0); pH Urine 6.5 (5.0-9.0)
[2022-08-02 21:36] LABS: Add Urine Microscopic? NO
--- NOTE | 2022-08-02 22:58 | ED.GENADULT ---
HPI - General Adult General Chief complaint: Unspecified Stated complaint: high blood pressure Time Seen by Provider: 08/02/22 19:57 History of Present Illness HPI narrative: Patient is a 82-year-old female who presents the emergency department with chief complaint of hypertension. The patient reports that she has history of hypertension and has not really checked her blood pressure in some time the patient states this evening she had a little bit of a headache and felt a little jittery and felt a little tingly sensation over her body. Patient reports that she checked her blood pressure and it was in the 220s at home. Patient denies chest pain denies shortness of breath. Related Data Home Medications Medication Instructions Recorded Confirmed aspirin 81 mg chewable tablet 07/09/19 04/09/22 Allergies Allergy/AdvReac Type Severity Reaction Status Date / Time No Known Allergies Allergy Unknown Verified 08/02/22 19:29 Review of Systems Review of Systems: A 10 system review of systems was completed on the patient and is negative except for what is stated in the HPI. Nursing and ancillary documentation was reviewed. [facility] Past Medical History Medical History Anemia due to blood loss Arthritis Atherosclerotic heart disease of [place] coronary artery without angina pectoris Atrial fibrillation, controlled CAD (coronary artery disease) Chronic kidney disease, stage 3b Complicated grieving Dehydration Disappearance and of family member Dysesthesia of face Environmental allergies Essential (primary) hypertension NAYELI (generalized anxiety disorder) NAYELI (generalized anxiety disorder) GERD (gastroesophageal reflux disease) Headache above the eye region History of blood transfusion HLD (hyperlipidemia) HTN (hypertension) Kidney stone Leg pain, right Lipid screening Malaise and fatigue Mixed hyperlipidemia Myocardial infarction Other fatigue Postmenopausal Psychophysiological insomnia Shingles Shoulder fracture Tremor of right hand Vitamin D deficiency Surgical History Surgical History H/O cardiac catheterization H/O: hysterectomy S/P CABG x 3 S/P CABG x 3 Family History Family History Mother Hypertension Sibling Patient's sister is in good health Social History Social History Social History: Smoking status: Never smoker Second hand tobacco smoke exposure: No Alcohol intake: never Substance use: never Substance use type: does not use Living arrangements: with family Occupation/Education: retired Gender identity (if verbalized by the patient): Female Sexual Orientation (if Verbalized by the Patient): Straight or Heterosexual Exam Narrative: GENERAL: Well-appearing, well-nourished, and in no acute distress. HEAD: Normocephalic, atraumatic. EYES: PERRLA and EOMI. ENT: Nares clear, no rhinorrhea or epistaxis. Mucous membranes moist. NECK: Supple. CHEST: Clear to auscultation. No respiratory distress. HEART: Regular rate and rhythm. No murmur heard. Normal peripheral pulses. ABDOMEN: Soft, nontender, nondistended, normal active bowel sounds. EXTREMITIES: Normal range of motion. No edema. SKIN: Warm, dry, no rash. NEURO: No focal deficits. Alert and oriented x3. PSYCH: Normal mood and affect. Course Vital Signs Vital signs: Vital Signs Temperature 36.3 C L 08/02/22 19:21 Pulse Rate 88 08/02/22 19:21 Respiratory Rate 20 08/02/22 19:21 Blood Pressure 222/81 H 08/02/22 19:21 Pulse Oximetry 94 08/02/22 19:21 Oxygen Delivery Room Air 08/02/22 19:21 Temperature 36.3 C L 08/02/22 19:21 Pulse Rate 88 08/02/22 22:30 Respiratory Rate 19 08/02/22 22:30 Blood Pressure 162/58 H 08/02/22 22:01
== END 2022-08-02 23:33 | disposition home or self-care (01) ==
PROVIDERS: Emergency Provider Emergency Medicine; PCP Family Medicine
DX: I12.9 Hypertensive chronic kidney disease with stage 1 through stage 4 chronic kidney disease, or unspecified chronic kidney disease (principal); N18.32 Chronic kidney disease, stage 3b; M19.90 Unspecified osteoarthritis, unspecified site; I48.91 Unspecified atrial fibrillation; I25.10 Atherosclerotic heart disease of native coronary artery without angina pectoris; Z87.442 Personal history of urinary calculi; E78.5 Hyperlipidemia, unspecified; K21.9 Gastro-esophageal reflux disease without esophagitis; F41.9 Anxiety disorder, unspecified
CPT/HCPCS: 36415; 71045; 80053; 81003; 83605; 83735; 84484; 85025; 85610; 85730; 93005; 96374; 99284; A9270; J0360

== ENCOUNTER 2022-11-28 08:41 | Outpatient (CLI) | payer MEDICARE, SELFPAY ==
[2022-11-28 09:19] LABS: Cholesterol 143 mg/dL (0-200); HDL Direct 59 mg/dL; Triglycerides 92 mg/dL (<150)
[2022-11-28 09:30] LABS: LDL Cholesterol Direct 57 mg/dL
== END 2022-11-28 08:42 | disposition home or self-care (01) ==
LOC: ANHLAB 08:43
PROVIDERS: PCP Family Medicine; Visit Provider Physician Assistant
DX: E78.5 Hyperlipidemia, unspecified (principal)
CPT/HCPCS: 36415; 80061

== ENCOUNTER 2023-04-04 08:56 | Outpatient (CLI) | payer MEDICARE, SELFPAY ==
[2023-04-04 09:32] LABS: Basophils Percent Auto 0.6 % (0.2-1.2); Eosinophils Absolute Auto 0.1 K/mm3 (0-0.3); Eosinophils Percent Auto 1.7 % (0-4.4); Hematocrit 37.3 % (37.0-47.0); Hemoglobin 12.1 g/dL (12.0-15.0); Immature Granulocyte Absolute 0.02 K/mm3 (0.00-0.031); Immature Granulocyte Percent A 0.3 % (0-0.5); Lymphocytes Absolute Auto 2.26 K/mm3 (0.9-3.2); Lymphocytes Percent Auto 35.7 % (18.3-44.2); Mean Corpuscular HGB Conc 32.4 g/dl (32-36); Mean Corpuscular Hemoglobin 33.5 pg (26-34); Mean Corpuscular Volume 103.3 fl (80-100); Mean Platelet Volume 9.9 fl (7.4-10.4); Monocytes Absolute Auto 0.9 K/mm3 (0.1-0.6); Monocytes Percent Auto 14.5 % (2.6-8.5); Neutrophils Percent Auto 47.2 % (45.5-73.1); Platelet Count Result 236 k/mm3 (150-375); Red Blood Count 3.61 M/mm3 (4.2-5.4); Red Cell Distribution Width 13.2 % (11.5-14.5); White Blood Count 6.3 K/mm3 (4.5-10.0)
[2023-04-04 09:43] LABS: Alanine Aminotransferase 21 U/L (6-35); Albumin Level 4.4 g/dL (3.5-5.1); Alkaline Phosphatase 49 U/L (38-126); Anion Gap 9 mmol/L (8-16); Aspartate Amino Transferase 26 U/L (14-36); Bilirubin,Total 0.8 mg/dL (0.2-1.3); Blood Urea Nitrogen 19 mg/dL (7-17); Calcium 9.3 mg/dL (8.4-10.2); Carbon Dioxide 26 mmol/L (22-30); Chloride 107 mmol/L (98-107); Cholesterol 154 mg/dL (0-200); Estimated Glomerular Filt Rate 36; Glucose 104 mg/dL (65-110); HDL Direct 62 mg/dL; Potassium 3.9 mmol/L (3.4-5.0); Sodium 142 mmol/L (137-145); Triglycerides 91 mg/dL (<150)
[2023-04-04 09:54] LABS: LDL Cholesterol Direct 66 mg/dL
[2023-04-07 12:29] LABS: Vitamin D 1,25 (OH)2 Total 24 pg/mL (18-72); Vitamin D2 1,25 (OH)2 <8 pg/mL; Vitamin D3 1,25 (OH)2 24 pg/mL
== END 2023-04-04 08:57 | disposition home or self-care (01) ==
PROVIDERS: PCP Family Medicine; Visit Provider Physician Assistant
DX: E78.5 Hyperlipidemia, unspecified (principal); E53.8 Deficiency of other specified B group vitamins; I10 Essential (primary) hypertension; E55.9 Vitamin D deficiency, unspecified; D64.9 Anemia, unspecified; I25.10 Atherosclerotic heart disease of native coronary artery without angina pectoris
CPT/HCPCS: 36415; 80053; 80061; 82607; 82652; 85025

== ENCOUNTER 2023-08-08 12:48 | Emergency (ER) | payer MEDICARE, SELFPAY ==
[2023-08-08 12:49] VITALS: BP 220/92; PULSE 99; RESP 14; TEMP 36.6; O2SAT 98
--- NOTE | 2023-08-08 13:07 | ECG_ITS ---
Measurements Intervals [place] Rate: 86 P: 38 MA: 146 QRS: 44 QRSD: 127 T: 15 QT: 374 QTc: 447 Interpretive Statements SINUS RHYTHM POSSIBLE LEFT ATRIAL ENLARGEMENT RIGHT BUNDLE BRANCH BLOCK BASELINE ARTIFACT- II, III, AVR, AVL, AVF, V1, V5 ABNORMAL ECG COMPARED TO ECG 08/02/2022 20:43:35 NO SIGNIFICANT CHANGES Electronically Signed On 08-08-2023 13:21:02 CDT by Kevin Mckeon D.O.
[2023-08-08 13:16] VITALS: BP 206/87
[2023-08-08 13:20] VITALS: RESP 18; O2SAT 96
[2023-08-08 13:24] LABS: Basophils Percent Auto 0.2 % (0.2-1.2); Eosinophils Percent Auto 0.1 % (0-4.4); Hematocrit 37.8 % (37.0-47.0); Hemoglobin 12.4 g/dL (12.0-15.0); Immature Granulocyte Absolute 0.09 K/mm3 (0.00-0.031); Immature Granulocyte Percent A 0.8 % (0-0.5); Lymphocytes Absolute Auto 1.94 K/mm3 (0.9-3.2); Lymphocytes Percent Auto 17.7 % (18.3-44.2); Mean Corpuscular HGB Conc 32.8 g/dl (32-36); Mean Corpuscular Hemoglobin 33.6 pg (26-34); Mean Corpuscular Volume 102.4 fl (80-100); Mean Platelet Volume 9.7 fl (7.4-10.4); Monocytes Absolute Auto 0.5 K/mm3 (0.1-0.6); Monocytes Percent Auto 4.8 % (2.6-8.5); Neutrophils Absolute Auto 8.4 K/mm3 (1.3-6.7); Neutrophils Percent Auto 76.4 % (45.5-73.1); Platelet Count Result 268 k/mm3 (150-375); Red Blood Count 3.69 M/mm3 (4.2-5.4); Red Cell Distribution Width 13.5 % (11.5-14.5); White Blood Count 10.9 K/mm3 (4.5-10.0)
[2023-08-08 13:31] VITALS: BP 168/101; PULSE 74; RESP 19; O2SAT 96
--- NOTE | 2023-08-08 13:34 | ED.RECABL ---
HPI - Recheck/Abnormal Lab/Rx General Chief Complaint: Recheck/Abnormal Lab/Rx Stated Complaint: HTN Time Seen by Provider: 08/08/23 12:56 History of Present Illness HPI narrative: patient with history of hypertension who was recently seen by her PCP, told to increase her blood pressure medications, presents here with persistent hypertension no complaints whatsoever, other than that she is recovering from shingles. No chest pain or shortness of breath other than some pain to her right breast for her shingles was. No headache, no focal numbness or weaknes Related Data Home Medications Medication Instructions Recorded Confirmed aspirin 81 mg chewable tablet 07/09/19 08/01/23 Allergies Allergy/AdvReac Type Severity Reaction Status Date / Time No Known Allergies Allergy Unknown Verified 08/01/23 13:01 Review of Systems Review of Systems: CONST: No fever. HEENT: No sore throat C/V: No chest pain RESP: No cough GI: No abdominal pain : No dysuria. M/S: No joint pain. SKIN: No rash. NEURO: [No headache or focal numbness or weakness] PSYCH: [No depression] [facility] Past Medical History Medical History Anemia due to blood loss Arthritis Atherosclerotic heart disease of [place] coronary artery without angina pectoris Atrial fibrillation, controlled CAD (coronary artery disease) Chronic kidney disease, stage 3b Complicated grieving Dehydration Disappearance and of family member Dysesthesia of face Environmental allergies Essential (primary) hypertension NAYELI (generalized anxiety disorder) NAYELI (generalized anxiety disorder) GERD (gastroesophageal reflux disease) Headache above the eye region History of blood transfusion HLD (hyperlipidemia) HTN (hypertension) Kidney stone Leg pain, right Lipid screening Malaise and fatigue Mixed hyperlipidemia Myocardial infarction Other fatigue Postmenopausal Psychophysiological insomnia Shingles Shoulder fracture Tremor of right hand Vitamin D deficiency Surgical History Surgical History H/O cardiac catheterization H/O: hysterectomy S/P CABG x 3 S/P CABG x 3 Family History Family History Mother Hypertension Sibling Patient's sister is in good health Social History Social History Social History: Smoking status: Never smoker Second hand tobacco smoke exposure: No Alcohol intake: never Substance use: never Substance use type: does not use Lack of Transportation: No Lack of Food: Never True Current Housing: I Have Housing Concerned About Future Housing: No Difficulty Paying Gas/Electric Bills: No Difficulty Paying for Meds: No Currently Unemployed: No Education: Decline to Answer Difficulty w/ Childcare or Family Care: No Living arrangements: with family Occupation/Education: retired Gender identity (if verbalized by the patient): Female Sexual Orientation (if Verbalized by the Patient): Straight or Heterosexual Exam Narrative: EXAMINATION OF ORGAN SYSTEMS/BODY AREAS: Constitutional: Vital signs per nursing GENERAL:[No acute distress, non-toxic appearing.] HEAD: Normal with no signs of head trauma. EYES: EOMI, conjunctiva normal ENT: Hearing grossly intact LUNGS: Nonlabored breathing. HEART: [Regular rate and rhythm] ABD: [Soft], [nontender to palpation] EXT: Normal range of motion SKIN: [No rashes or lesions.] NEURO: [Alert and oriented x 3. No gross focal sensory or strength deficits.] PSYCH: Normal affect Course Vital Signs Vital signs: Vital Signs Temperature 97.8 F 08/08/23 12:49 Pulse Rate 99 08/08/23 12:49 Respiratory Rate 14 08/08/23 12:49 Blood Pressure 220/92 H 08/08/23 12:49 Pulse Oximetry 98 08/08/23 12:49 Oxygen Delivery Room Air 08/08/23
[2023-08-08 13:36] LABS: Anion Gap 8 mmol/L (8-16); Blood Urea Nitrogen 30 mg/dL (7-17); Carbon Dioxide 22 mmol/L (22-30); Chloride 107 mmol/L (98-107); Estimated CRCL calculation 21 ml/min; Estimated Glomerular Filt Rate 36; Glucose 149 mg/dL (65-110); Sodium 137 mmol/L (137-145)
[2023-08-08 13:47] VITALS: BP 187/92; PULSE 83; RESP 20; O2SAT 96
== END 2023-08-08 13:59 | disposition home or self-care (01) ==
PROVIDERS: Emergency Provider Emergency Medicine; PCP Family Medicine
DX: I25.10 Atherosclerotic heart disease of native coronary artery without angina pectoris (principal); I48.91 Unspecified atrial fibrillation; I12.9 Hypertensive chronic kidney disease with stage 1 through stage 4 chronic kidney disease, or unspecified chronic kidney disease; N18.32 Chronic kidney disease, stage 3b; I25.2 Old myocardial infarction; E78.2 Mixed hyperlipidemia; E55.9 Vitamin D deficiency, unspecified; K21.9 Gastro-esophageal reflux disease without esophagitis; M19.90 Unspecified osteoarthritis, unspecified site; F41.1 Generalized anxiety disorder; Z95.1 Presence of aortocoronary bypass graft; Z87.442 Personal history of urinary calculi; Z90.710 Acquired absence of both cervix and uterus; Z79.82 Long term (current) use of aspirin; I45.10 Unspecified right bundle-branch block; R94.31 Abnormal electrocardiogram [ECG] [EKG]
CPT/HCPCS: 36415; 80048; 85025; 93005; 99283

== ENCOUNTER 2024-01-05 15:04 | Outpatient (CLI) | payer MEDICARE, SELFPAY ==
[2024-01-05 16:06] LABS: Basophils Percent Auto 0.4 % (0.2-1.2); Eosinophils Absolute Auto 0.1 K/mm3 (0-0.3); Eosinophils Percent Auto 1.1 % (0-4.4); Hematocrit 38.9 % (37.0-47.0); Hemoglobin 13.2 g/dL (12.0-15.0); Immature Granulocyte Absolute 0.03 K/mm3 (0.00-0.031); Immature Granulocyte Percent A 0.4 % (0-0.5); Lymphocytes Absolute Auto 2.73 K/mm3 (0.9-3.2); Lymphocytes Percent Auto 32.2 % (18.3-44.2); Mean Corpuscular HGB Conc 33.9 g/dl (32-36); Mean Corpuscular Hemoglobin 35.2 pg (26-34); Mean Corpuscular Volume 103.7 fl (80-100); Mean Platelet Volume 10.1 fl (7.4-10.4); Monocytes Absolute Auto 1.1 K/mm3 (0.1-0.6); Neutrophils Absolute Auto 4.5 K/mm3 (1.3-6.7); Neutrophils Percent Auto 52.9 % (45.5-73.1); Platelet Count Result 256 k/mm3 (150-375); Red Blood Count 3.75 M/mm3 (4.2-5.4); Red Cell Distribution Width 12.6 % (11.5-14.5); White Blood Count 8.5 K/mm3 (4.5-10.0)
[2024-01-05 16:19] LABS: Alanine Aminotransferase 16 U/L (6-35); Albumin Level 4.4 g/dL (3.5-5.1); Alkaline Phosphatase 56 U/L (38-126); Anion Gap 10 mmol/L (4-12); Aspartate Amino Transferase 24 U/L (14-36); Bilirubin,Total 0.7 mg/dL (0.2-1.3); Blood Urea Nitrogen 36 mg/dL (7-17); Calcium 9.6 mg/dL (8.4-10.2); Carbon Dioxide 28 mmol/L (22-30); Chloride 99 mmol/L (98-107); Estimated Glomerular Filt Rate 27; Glucose 90 mg/dL (65-110); Potassium 4.7 mmol/L (3.4-5.0); Sodium 137 mmol/L (137-145)
[2024-01-05 17:52] LABS: Erythrocyte Sedimentation Rate 22 mm/hr (0-20)
== END 2024-01-05 15:05 | disposition home or self-care (01) ==
LOC: ANHLAB 15:09
PROVIDERS: PCP Family Medicine; Visit Provider Family Medicine
DX: R25.1 Tremor, unspecified (principal); I10 Essential (primary) hypertension; R53.82 Chronic fatigue, unspecified
CPT/HCPCS: 36415; 80053; 84443; 85025; 85652

== ENCOUNTER 2024-03-11 13:59 | Outpatient (CLI) | payer MEDICARE, SELFPAY ==
[2024-03-11 14:55] LABS: Anion Gap 9 mmol/L (4-12); Blood Urea Nitrogen 22 mg/dL (7-17); Calcium 8.8 mg/dL (8.4-10.2); Carbon Dioxide 24 mmol/L (22-30); Chloride 108 mmol/L (98-107); Estimated Glomerular Filt Rate 36; Glucose 151 mg/dL (65-110); Potassium 3.8 mmol/L (3.4-5.0); Sodium 141 mmol/L (137-145)
== END 2024-03-11 14:00 | disposition home or self-care (01) ==
PROVIDERS: PCP Family Medicine; Visit Provider Student in an Organized Health Care Education/Training Program
DX: I13.10 Hypertensive heart and chronic kidney disease without heart failure, with stage 1 through stage 4 chronic kidney disease, or unspecified chronic kidney disease (principal); N18.30 Chronic kidney disease, stage 3 unspecified
CPT/HCPCS: 36415; 80048

== ENCOUNTER 2024-06-21 10:42 | Outpatient (CLI) | payer MEDICARE, SELFPAY ==
[2024-06-21 11:07] LABS: Basophils Percent Auto 0.5 % (0.2-1.2); Eosinophils Absolute Auto 0.1 K/mm3 (0-0.3); Hematocrit 36.6 % (37.0-47.0); Hemoglobin 11.9 g/dL (12.0-15.0); Immature Granulocyte Absolute 0.01 K/mm3 (0.00-0.031); Immature Granulocyte Percent A 0.2 % (0-0.5); Lymphocytes Absolute Auto 1.98 K/mm3 (0.9-3.2); Lymphocytes Percent Auto 33.2 % (18.3-44.2); Mean Corpuscular HGB Conc 32.5 g/dl (32-36); Mean Corpuscular Hemoglobin 33.7 pg (26-34); Mean Corpuscular Volume 103.7 fl (80-100); Mean Platelet Volume 9.7 fl (7.4-10.4); Monocytes Absolute Auto 0.9 K/mm3 (0.1-0.6); Monocytes Percent Auto 15.1 % (2.6-8.5); Neutrophils Absolute Auto 2.9 K/mm3 (1.3-6.7); Platelet Count Result 220 k/mm3 (150-375); Red Blood Count 3.53 M/mm3 (4.2-5.4); Red Cell Distribution Width 12.9 % (11.5-14.5)
== END 2024-06-21 10:43 | disposition home or self-care (01) ==
PROVIDERS: PCP Family Medicine; Visit Provider Physician Assistant
DX: D64.9 Anemia, unspecified (principal); E53.8 Deficiency of other specified B group vitamins
CPT/HCPCS: 36415; 82607; 85025

== ENCOUNTER 2024-08-31 11:14 | Outpatient (CLI) | payer MEDICARE, SELFPAY ==
[2024-08-31 11:57] LABS: Alanine Aminotransferase 19 U/L (6-35); Albumin Level 4.4 g/dL (3.5-5.1); Alkaline Phosphatase 56 U/L (38-126); Anion Gap 11 mmol/L (4-12); Aspartate Amino Transferase 24 U/L (14-36); Bilirubin,Total 0.8 mg/dL (0.2-1.3); Blood Urea Nitrogen 24 mg/dL (7-17); Calcium 9.2 mg/dL (8.4-10.2); Carbon Dioxide 25 mmol/L (22-30); Chloride 104 mmol/L (98-107); Estimated Glomerular Filt Rate 30; Glucose 113 mg/dL (65-110); Potassium 4.6 mmol/L (3.4-5.0); Sodium 140 mmol/L (137-145)
== END 2024-08-31 11:15 | disposition home or self-care (01) ==
PROVIDERS: PCP Family Medicine; Visit Provider Student in an Organized Health Care Education/Training Program
DX: I13.10 Hypertensive heart and chronic kidney disease without heart failure, with stage 1 through stage 4 chronic kidney disease, or unspecified chronic kidney disease (principal); N18.30 Chronic kidney disease, stage 3 unspecified
CPT/HCPCS: 36415; 80053

== ENCOUNTER 2024-09-27 04:43 | Observation (INO) | payer MEDICARE, SELFPAY ==
[2024-09-27] VITALS (17 sets, daily range): BP systolic 137–202; BP diastolic 57–89; PULSE 70–87; RESP 15–25; TEMP 36.2–36.8; O2SAT 92–98; BMI 21.9
--- NOTE | 2024-09-27 | ECHO_ITS ---
Patient Info Name: Geraldine Anthony Age: 84 years : 1940 Gender: Female Ht: 63 in Wt: 123 lbs BSA: 1.58 m2 HR: 70 bpm BP: 142 / 57 mmHg Heart Rhythm: Sinus Rhythm Technical Quality: Good Exam Date: 09/27/2024 2:37 PM Exam Location: Echo Lab Patient Status: Outpatient Admit Date: 09/27/2024 Staff Ordering Physician: Darius Chavis MD Material Mixer: Ana Laura Hercules RDCS Attending Provider: Ben Calderón MD Exam Type: CA echo doppler color flow Study Info Indications - Vertigo Complete two-dimensional, color flow and Doppler transthoracic echocardiogram is performed. Summary 1. Complete two-dimensional, color flow and Doppler transthoracic echocardiogram is performed. 2. Concentric left ventricular hypertrophy with well-preserved systolic function. 3. Grade 1 diastolic noncompliance. 4. Sclerotic aortic valve with mild stenosis valve area 1.6 cm2. 5. Left atrial enlargement. 6. Calcified mitral valve annulus with modest MR. 7. Mildly elevated pulmonary artery pressure. Left Ventricle Left ventricular chamber dimension is normal. Left ventricular systolic function is normal, estimated at 65-70%. There is moderate concentric increased left ventricular wall thickness. The left ventricular diastolic function is grade I diastolic dysfunction. Right Ventricle Right ventricular chamber dimension is normal. Left Atria Left atrial chamber dimension is moderately enlarged. Right Atria Right atrial chamber dimension is normal. Aortic Valve The aortic valve is trileaflet. There is mild aortic valve sclerosis. There is mild aortic valve stenosis with a peak velocity of 188 cm/s, mean gradient of 9 mmHg, and aortic valve area of 1.9 cm2. Pulmonic Valve The pulmonic valve is not well visualized. Mitral Valve The mitral valve has thickened leaflets. There is mild mitral valve regurgitation. The mitral valve annulus is moderately calcified. Tricuspid Valve The tricuspid valve leaflets are normal. There is mild tricuspid valve regurgitation. Mild pulmonary hypertension, estimated pulmonary arterial systolic pressure is 43 mmHg. Pericardium/Pleural The pericardium appears normal. Aorta The aortic root size at the sinus of Valsalva is normal. Left Ventricular Outflow Tract Name Value Normal LVOT 2D LVOT Diameter 1.8 cm LVOT Doppler LVOT Peak Gradient 7 mmHg LVOT Mean Gradient 5 mmHg LVOT VTI 33 cm LVOT VTI/AV VTI Ratio 0.8 LVOT Stroke Volume 79 ml LVOT CO 15.7 l/min LVOT CI 10.0 l/min/m2 Pulmonic Valve Name Value Normal PV Doppler PV Peak Gradient 4 mmHg Mitral Valve Name Value Normal MV Doppler MV Decel [place] 484 cm/s2 MV PHT 67 ms MV Area (PHT) 3.3 cm2 4.0-5.0 MV Diastolic Function MV E Peak Velocity 112 cm/s MV A Peak Velocity 140 cm/s MV E/A 0.8 MV Decel Time 232 ms MV Annular TDI MV E/e' (Septal) 17.7 <=8.0 MV E/e' (Lateral) 11.4 <=8.0 MV E/e' (Average) 14.6 Tricuspid Valve Name Value Normal TV Regurgitation Doppler TR Peak Velocity 289 cm/s TR Peak Gradient 33 mmHg Estimated PAP/RSVP RA Pressure 10 mmHg <=5 PA Systolic Pressure 43 mmHg <36 RV Systolic Pressure 43 mmHg <36 Aorta Name Value Normal Ascending Aorta Ao Root Diameter (MM) 3.0 cm Ao Root Diam Index (MM) 1.9 cm/m2 Aortic Valve Name Value Normal AV Doppler AV Peak Velocity 188 cm/s AV Peak Gradient 14 mmHg AV Mean Gradient 9 mmHg AV VTI 42 cm AV Area (Cont Eq VTI) 1.9 cm2 >=3.0 AV Area (Cont Eq Sudhir) 1.6 cm2 AV Regurgitation 2D LVOT Area 2.4 cm2 Ventricles Name Value Normal LV Dimensions 2D/MM IVS Diastolic Thickness (2D) 0.9 cm 0.6-1.0 LVID Diastole (2D) 3.6 cm 3.8-5.2 LVIW Diastolic Thickness (2D) 0.9 cm 0.6-0.9 LVID Systole (2D) 2.1 cm 2.2-3.5 LVOT Diameter 1.8 cm LV Mass (2D Cubed) 93.68 g 67.00-162.00 LV Mass Index (2D Cubed) 59 g/m2 43-95 Relative Wall Thickness (2D) 0.52 LV Fractional Shortening/Ejection Fraction 2D/MM LV Fractional Shortening (2D) 41 % 27-45 LV EF (2D Teicholz) 73 % 54-74 LV Diastolic Volume (4C MOD) 64 ml LV EF (4C MOD) 73 % LV Diastolic Volume (2C MOD) 80 ml LV EF (2C MOD) 79 % LV Diastolic Volume (BP MOD) 74 ml 46-106 LV Diastolic Volume Index (BP MOD) 47 ml/m2 29-61 LV Systolic Volume (BP MOD) 17 ml 14-42 LV Systolic Volume Index (BP MOD) 11 ml/m2 8-24 LV EF (BP MOD) 77 % 54-74 LV Diastolic Length (4C) 6.6 cm LV Systolic Length (4C) 5.8 cm LV Stroke Volume (4C MOD) 46 ml RV Dimensions 2D/MM RVID Diastole (2D) 3.2 cm 2.5-3.5 Atria Name Value Normal LA Dimensions LA Dimension (MM) 4.5 cm 2.7-3.8 LA Volume (4C A-L) 53 ml LA Volume (BP A-L) 53 ml RA Dimensions RA Area (4C) 12.8 cm2 <=18.0 Report Signatures
--- NOTE | ~2024-09-27 | US_ITS ---
EXAMINATION: US carotid duplex BI DATE: 09/27/2024 13:17 INDICATION: Vertigo TECHNIQUE: Grayscale, color Doppler, and pulsed Doppler images of the cervical carotid arteries were obtained. The degree of vessel stenosis is placed in one of the following categories: normal, <50%, 5 0-69%, >=70% but less than near-occlusion, near-occlusion, or total occlusion. Note that percent sten osis relative to normal distal artery lumen diameter is indirectly measured from velocity measurement s as described by Noble, et al. Radiology 2003; 229:340-346. COMPARISON: None. FINDINGS: RIGHT: The right common carotid artery (CCA) peak systolic velocity (PSV) is 87 cm/s. The right internal car otid artery (ICA) PSV is 116 cm/s. The right ICA end-diastolic velocity (EDV) is 25 cm/s. The right I CA/CCA PSV ratio is 1.3. Grayscale and color Doppler images yield an estimate of <50% diameter reduct ion from plaque in the ICA. The external carotid artery (ECA) PSV is 152 cm/s. There is antegrade dariusz w in the right vertebral artery. LEFT: The left CCA PSV is 61 cm/s. The left ICA PSV is 163 cm/s. The left ICA EDV is 19 cm/s. The left ICA/ CCA PSV ratio is 2.7. Grayscale and color Doppler images yield an estimate of 50-69% diameter reducti on from plaque in the ICA. The ECA PSV is 285 cm/s. There is antegrade flow in the left vertebral art [place]. IMPRESSION: 1. <50% stenosis in the right internal carotid artery. 2. 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 Reviewed, dictated and finalized at location A.
--- NOTE | ~2024-09-27 | MR_ITS ---
EXAMINATION: MR brain/brain stem wo/w con DATE: 09/27/2024 10:46 INDICATION: Vertigo TECHNIQUE: Magnetic resonance imaging (MRI) of the brain and brainstem was performed without and with 11 mL ProHance intravenous contrast. Sequences included sagittal and axial T1-weighted SE, axial dif fusion-weighted FS SE, axial T2*-weighted GRE, axial T2-weighted FLAIR, and axial T2-weighted FSE. Po stcontrast axial and coronal T1-weighted SE was obtained. Apparent diffusion coefficient (ADC) maps w ere created. COMPARISON: None. 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 There are no areas of restricted diffusion to suggest acute infarction. No intracranial hemorrhage or abnormal intracran ial mass lesion. There are scattered areas of nonspecific increased T2-weighted signal intensity in t he cerebral white matter, predominantly involving the deep and periventricular white matter. There ar e no intraparenchymal signal abnormalities seen on the other pulse sequences. The ventricles are symm etric and normal in size. There are no abnormal extra-axial fluid collections. Flow voids are seen in the cerebral arteries on the T2-weighted sequences consistent with their expected patency. Mild muco magalie thickening in the bilateral ethmoid sinuses. Mucous retention cyst in the left maxillary sinus. V isualized orbits and soft tissues are unremarkable. There are no areas of abnormal enhancement on the post contrast images. IMPRESSION: 1. Aging brain with small old lacunar infarct in the right frontal lobe periventricular white matter. No acute intracranial process or abnormally enhancing brain lesions. Reviewed, dictated and finalized at location A. IMPRESSION: 1. Aging brain with small old lacunar infarct in the right frontal lobe periven tricular white matter. No acute intracranial process or abnormally enhancing br ain lesions.
--- NOTE | ~2024-09-27 | XR_ITS ---
EXAMINATION: XR chest 1V portable DATE: 09/27/2024 12:29 INDICATION: Vertigo TECHNIQUE: frontal view of the chest was obtained. COMPARISON: Chest radiograph dated 08/02/2022 FINDINGS: Mild airspace opacities at the left lung base which based on earlier CT likely represents a small par acardial fat pad with differential including atelectasis or pneumonia. Unchanged mild linear discoid atelectasis/scarring at the right lung base. No pulmonary edema, pleural effusion or pneumothorax. He art size is normal. Median sternotomy wires and mediastinal surgical clips are seen, likely from prio r coronary artery bypass grafting. Small hiatal hernia. Visualized bones and soft tissues are unremar kable. IMPRESSION: 1. Opacity left lower lung zone most likely small paracardial fat pad with differential including ate lectasis or pneumonia. 2. Small hiatal hernia. Reviewed, dictated and finalized at location A. IMPRESSION: 1. Opacity left lower lung zone most likely small paracardial fat pad with diff erential including atelectasis or pneumonia. 2. Small hiatal hernia.
--- NOTE | ~2024-09-27 | CT_ITS ---
EXAMINATION: CTA neck DATE: 09/28/2024 16:40 INDICATION: Left carotid stenosis TECHNIQUE: Computed tomographic angiography (CTA) of the neck was performed with 100 mL Omnipaque-350 intravenous contrast. Multiplanar reconstructions and maximum intensity projection 3D-reconstruction s were created by the technologist on a separate workstation. Automated exposure control and iterativ e reconstruction technique were employed. The dose-length product was 440.86 mGy-cm. COMPARISON: None. FINDINGS: Visualized aortic arch and great vessels arising from the arch are normal in caliber with small amoun t of nonhemodynamically significant atherosclerotic plaque and no dissection. There is 70% stenosis o f the right carotid bulb relative to normal distal artery lumen diameter (NASCET criteria). There is 70% stenosis of the left carotid bulb relative to normal distal artery lumen diameter. There are luma tional atherosclerotic calcifications without hemodynamically significant stenosis at the bilateral c arotid siphons and bilateral vertebral arteries. Mild biapical pleural-parenchymal scarring. Median s ternotomy wires and surgical clips consistent with prior coronary artery bypass grafting. Moderate ce rvical spondylosis. IMPRESSION: 1. 70% stenosis of the both the right and left carotid bulbs relative to normal distal artery lumen d iameter (NASCET criteria). Reviewed, dictated and finalized at location A. IMPRESSION: 1. 70% stenosis of the both the right and left carotid bulbs relative to normal distal artery lumen diameter (NASCET criteria).
--- NOTE | ~2024-09-27 | CT_ITS ---
CT head without contrast Indication: Vertigo Technique: Serial scans were obtained through the brain without the administration of contrast. Dose reduction technique was used on this scan by utilizing automated exposure control and iterative recon struction technique. The dose-length product (DLP) was 605.33 mGy-cm. Findings: There is no evidence of intracranial hemorrhage, mass lesion, or acute infarct. The ventri cles and subarachnoid spaces are dilated, consistent with mild atrophy. Low attenuation regions are seen within the periventricular white matter bilaterally, likely representing changes from chronic mi crovascular ischemic disease. There is no evidence of edema, mass effect or midline shift. The visu alized paranasal sinuses and mastoid air cells are clear. Impression: No intracranial hemorrhage, mass, or acute infarct. Atrophy and chronic white matter changes, as above. Reviewed, dictated and finalized at location . Impression: No intracranial hemorrhage, mass, or acute infarct. Atrophy and chronic white matter changes, as above.
--- NOTE | 2024-09-27 04:51 | ECG_ITS ---
Test Date: 2024-09-27 04:50:03 Measurements Intervals [place] Rate: 76 P: 150 MD: 182 QRS: 172 QRSD: 141 T: 159 QT: 388 QTc: 438 Interpretive Statements ECTOPIC ATRIAL RHYTHM INTRAVENTRICULAR CONDUCTION DELAY [130+ ms QRS DURATION] LATERAL MYOCARDIAL INFARCTION , OF INDETERMINATE AGE [40+ ms Q WAVE AND/OR ST/T ABNORMALITY IN I/aVL/V5/V6] No previous ECG available for comparison Electronically Signed On 09-27-2024 06:43:49 CDT by Estrellita Gallegos M.D.
--- NOTE | 2024-09-27 04:56 | ED.GENADULT ---
HPI - General Adult General Chief complaint: Dizziness Stated complaint: Dizziness History of Present Illness HPI narrative: 84-year-old female presenting to the emergency department for evaluation for onset vertigo. Patient reports she does have a prior history of vertigo. Patient also has history of hypertension high cholesterol coronary disease. Patient states her last episode of vertigo was approximately and 20 years ago. Patient states that she woke up to use the restroom this morning and was having onset at of dizziness hand that dizziness is a spinning sensation. Patient attempted to walk to the bathroom but due to the spinning sensation she ended up lying down said that she would not injure herself. Patient called EMS and arrived to the emergency department by EMS. Patient denies any falls or injuries. Patient denies any recent coughs colds fevers. Patient denies any chest pain shortness of breath. Patient does have dizziness that she describes as a spinning sensation and nausea. Patient also does have a baseline essential tremor Related Data Home Medications ?Medication ?Instructions ?Recorded ?Confirmed ?Last Taken ?Type aspirin 81 mg chewable tablet 1 tablet PO DAILY 07/09/19 09/27/24 Unknown History Allergies Allergy/AdvReac Type Severity Reaction Status Date / Time No Known Allergies Allergy Unknown Verified 08/16/24 09:26 Review of Systems Review of Systems: All systems reviewed & are unremarkable except as noted in HPI and below PMFSH Past Medical History Medical History Dysuria NAYELI (generalized anxiety disorder) Vitamin D deficiency Tremor of right hand Psychophysiological insomnia Postmenopausal Other fatigue Mixed hyperlipidemia Malaise and fatigue Lipid screening Leg pain, right Headache above the eye region Essential (primary) hypertension Environmental allergies Dysesthesia of face Disappearance and of family member Dehydration Atherosclerotic heart disease of [place] coronary artery without angina pectoris Complicated grieving Atrial fibrillation, controlled Anemia due to blood loss Muscle spasm AOM (acute otitis media) Chronic kidney disease, stage 3b Pneumonia, unspecified organism NAYELI (generalized anxiety disorder) CAD (coronary artery disease) Shingles History of blood transfusion Arthritis Shoulder fracture Kidney stone GERD (gastroesophageal reflux disease) Myocardial infarction HLD (hyperlipidemia) HTN (hypertension) Surgical History Surgical History S/P CABG x 3 H/O: hysterectomy H/O cardiac catheterization S/P CABG x 3 Family History Family History Mother Hypertension Sibling Patient's sister is in good health Social History Social History Social History: Smoking status: Never smoker Second hand tobacco smoke exposure: No Alcohol intake: never Substance use: never Substance use type: does not use Do You Feel Safe in your Home?: Yes Lack of Transportation: No Lack of Food: Never True Current Housing: I Have Housing Concerned About Future Housing: No Difficulty Paying Gas/Electric Bills: No Difficulty Paying for Meds: No Currently Unemployed: No Education: Decline to Answer Difficulty w/ Childcare or Family Care: No Living arrangements: with family Occupation/Education: retired Gender identity (if verbalized by the patient): Female Sexual Orientation (if Verbalized by the Patient): Straight or Heterosexual Spiritual care concerns: No Exam Narrative: APPEARANCE: Uncomfortable appearing due to nausea vertigo HEAD: normocephalic, atraumatic. EYES: PERRLA/EOMI, conjunctivae clear. NOSE: Normal no drainage EARS:TMS clear with good light reflex. THROAT: Pharynx clear, no exudate. NECK: Supple. No adenopathy, no masses. RESPIRATORY: Airway patent, respirations nonlabored. Clear to auscultation bilaterally, no rales, rhonchi, wheezing. CARDIOVASCULAR: Regular rate and rhythm without murmurs rubs or gallops. ABDOMINAL: Soft, nontender, nondistended, normal bowel sounds MUSCULOSKELETAL: Moves all extremities. Strength/ROM intact, No edema, No calf tenderness. NEURO: Alert. Cranial nerves II through XII intact. Essential tremor SKIN: Warm, dry. Normal Color Course Vital Signs Vital signs: Vital Signs Temperature 97.5 F L 09/27/24 04:45 Pulse Rate 78 09/27/24 04:45 Respiratory Rate 25 H 09/27/24 04:45 Blood Pressure 189/89 H 09/27/24 04:45 Pulse Oximetry 96 09/27/24 04:45 Oxygen Delivery Room Air 09/27/24 04:45 Temperature 98.1 F 09/29/24 14:00 Pulse Rate 80 09/29/24 14:00 Respiratory Rate 16 09/29/24 14:00 Blood Pressure 142/70 H 09/29/24 14:00 Pulse Oximetry 97 09/29/24 14:00 Oxygen Delivery Room Air 09/29/24 09:50 Medical Decision Making [facility] Narrative Medical decision making narrative: 84-year-old female present to the emergency department for evaluation for vertigo while walking to the restroom. Patient states that she woke up she had onset of vertigo and laid down the ground. Patient denies any injury from this. Upon arrival emergency department patient was hypertensive and patient had not yet taking her morning medications. Patient was treated with her morning meds along with p.o. meclizine. Patient is currently afebrile with no leukocytosis hemoglobin 11.6. INR is 1.0. Creatinine is 1.43 which is similar to her baseline. Head CT was negative for acute intracranial abnormality. Attempted to road test the patient and she still felt dizzy with the meclizine and patient was treated with additional p.o. Valium. Patient was admitted to the hospitalist for evaluation of persistent vertigo Differential Diagnosis Differential Diagnosis: TIA, CVA, vertigo Vital Signs Vital Signs: Vital Signs Temperature 97.5 F L 09/27/24 04:45 Pulse Rate 78 09/27/24 04:45 Respiratory Rate 25 H 09/27/24 04:45 Blood Pressure 189/89 H 09/27/24 04:45 Pulse Oximetry 96 09/27/24 04:45 Oxygen Delivery Room Air 09/27/24 04:45 Temperature 98.1 F 09/29/24 14:00 Pulse Rate 80 09/29/24 14:00 Respiratory Rate 16 09/29/24 14:00 Blood Pressure 142/70 H 09/29/24 14:00 Pulse Oximetry 97 09/29/24 14:00 Oxygen Delivery Room Air 09/29/24 09:50 Lab Data Lab results reviewed: Yes I reviewed the patient's lab results. 09/29/24 05:33 09/29/24 05:33 Labs: Lab Results 09/27/24 Range/Units 05:00 WBC 6.7 (4.5-10.0) K/mm3 RBC 3.49 L (4.2-5.4) M/mm3 Hgb 11.6 L (12.0-15.0) g/dL Hct 36.0 L (37.0-47.0) % MCV 103.2 H (80-100) fl MCH 33.2 (26-34) pg MCHC 32.2 (32-36) g/dl RDW 13.3 (11.5-14.5) % Plt Count 226 (150-375) k/mm3 MPV 10.0 (7.4-10.4) fl Immature Gran % (Auto) 0.3 (0-0.5) % Neut % (Auto) 38.7 L (45.5-73.1) % Lymph % (Auto) 43.0 (18.3-44.2) % [place] % (Auto) 15.7 H (2.6-8.5) % Eos % (Auto) 1.9 (0-4.4) % Baso % (Auto) 0.4 (0.2-1.2) % Lymph # (Auto) 2.90 (0.9-3.2) K/mm3 [place] # (Auto) 1.1 H (0.1-0.6) K/mm3 Eos # (Auto) 0.1 (0-0.3) K/mm3 Baso # (Auto) 0.0 (0.0-0.1) K/mm3 Abs Immat Gran (auto) 0.02 (0.00-0.031) K/mm3 Absolute Neuts (auto) 2.6 (1.3-6.7) K/mm3 Absolute Nucleated RBC 0.000 (0.0-0.012) K/mm3 Nucleated RBC % 0.0 (0.0-0.2) % PT 13.4 (11.1-14.7) Seconds INR 1.0 APTT 24.6 (22.3-36.8) Seconds Sodium 139 (137-145) mmol/L Potassium 4.0 (3.4-5.0) mmol/L Chloride 108 H (98-107) mmol/L Carbon Dioxide 21 L (22-30) mmol/L Anion Gap 10 (4-12) mmol/L BUN 31 H (7-17) mg/dL Creatinine 1.43 H (0.7-1.0) mg/dL Estim Creat Clear Calc 21 ml/min Estimated GFR 35 L (59 - ) Glucose 123 H (65-110) mg/dL Calcium 9.1 (8.4-10.2) mg/dL Total Bilirubin 0.4 (0.2-1.3) mg/dL AST 23 (14-36) U/L ALT 21 (6-35) U/L Alkaline Phosphatase 83 (38-126) U/L Total Protein 7.0 (6.3-8.2) g/dL Albumin 4.3 (3.5-5.1) g/dL Imaging Data Radiologist's impression: Overnight read CT head impression: No acute intracranial abnormality Discharge Plan Discharge Clinical Impression: Vertigo Patient Disposition: Still a Patient Condition: Stable
[2024-09-27] MEDS: ONDANSETRON INJ 4 MG/2 ML VIAL IV PUSH (05:06)
[2024-09-27] MEDS: MECLIZINE HCL 25 MG TABLET PO (05:06)
[2024-09-27 05:18] LABS: Basophils Percent Auto 0.4 % (0.2-1.2); Eosinophils Absolute Auto 0.1 K/mm3 (0-0.3); Eosinophils Percent Auto 1.9 % (0-4.4); Hemoglobin 11.6 g/dL (12.0-15.0); Immature Granulocyte Absolute 0.02 K/mm3 (0.00-0.031); Immature Granulocyte Percent A 0.3 % (0-0.5); Mean Corpuscular HGB Conc 32.2 g/dl (32-36); Mean Corpuscular Hemoglobin 33.2 pg (26-34); Mean Corpuscular Volume 103.2 fl (80-100); Monocytes Absolute Auto 1.1 K/mm3 (0.1-0.6); Monocytes Percent Auto 15.7 % (2.6-8.5); Neutrophils Absolute Auto 2.6 K/mm3 (1.3-6.7); Neutrophils Percent Auto 38.7 % (45.5-73.1); Platelet Count Result 226 k/mm3 (150-375); Red Blood Count 3.49 M/mm3 (4.2-5.4); Red Cell Distribution Width 13.3 % (11.5-14.5); White Blood Count 6.7 K/mm3 (4.5-10.0)
[2024-09-27 05:28] LABS: Prothrombin Time 13.4 Seconds (11.1-14.7)
[2024-09-27 05:29] LABS: Partial Thromboplastin Time 24.6 Seconds (22.3-36.8)
[2024-09-27 05:34] LABS: Alanine Aminotransferase 21 U/L (6-35); Albumin Level 4.3 g/dL (3.5-5.1); Alkaline Phosphatase 83 U/L (38-126); Anion Gap 10 mmol/L (4-12); Aspartate Amino Transferase 23 U/L (14-36); Bilirubin,Total 0.4 mg/dL (0.2-1.3); Blood Urea Nitrogen 31 mg/dL (7-17); Calcium 9.1 mg/dL (8.4-10.2); Carbon Dioxide 21 mmol/L (22-30); Chloride 108 mmol/L (98-107); Estimated CRCL calculation 21 ml/min; Estimated Glomerular Filt Rate 35; Glucose 123 mg/dL (65-110); Sodium 139 mmol/L (137-145)
[2024-09-27] MEDS: IRBESARTAN 150 MG TABLET PO (06:29)
[2024-09-27] MEDS: carvediloL 3.125 MG TABLET PO (06:29)
[2024-09-27] MEDS: hydrALAZINE HCL 25 MG TABLET PO (06:29)
[2024-09-27] MEDS: diazePAM (*CRX) 5 MG TABLET 2.5 MG PO (06:31)
--- NOTE | 2024-09-27 06:33 | PC.NURSE ---
patient had x2 episodes of bowel movements in bedpan. pt unable to sit up to assess blood pressure/ ambulation. pt states she gets increased in dizziness/ weakness/ shakiness.
--- NOTE | 2024-09-27 12:01 | P.HP_ITS ---
H&P: HPI History of Present Illness Date/Time: 09/27/24 12:01 Chief Complaint: Vertigo Narrative: 84 yo Female with PMH of HLD, HTN, CKD 3b, CAD who presented to the ER on account of dizziness. SHe noted that she woke up about midnight and noted the room spinning which improved with resting. Denies any chest pain, SOB, vomiting, poor oral intake, abd pain, diarrhea, and no focal deficits otherwise. ER eval notable for BP 189/89, Cr 1.43, MRI brain no acute changes, patient was admitted for further eval and care. Review of Systems Review of Systems: All other systems were reviewed and negative except as noted in the HPI above [facility] Past Medical History Medical History Dysuria NAYELI (generalized anxiety disorder) Vitamin D deficiency Tremor of right hand Psychophysiological insomnia Postmenopausal Other fatigue Mixed hyperlipidemia Malaise and fatigue Lipid screening Leg pain, right Headache above the eye region Essential (primary) hypertension Environmental allergies Dysesthesia of face Disappearance and of family member Dehydration Atherosclerotic heart disease of [place] coronary artery without angina pectoris Complicated grieving Atrial fibrillation, controlled Anemia due to blood loss Muscle spasm AOM (acute otitis media) Chronic kidney disease, stage 3b Pneumonia, unspecified organism NAYELI (generalized anxiety disorder) CAD (coronary artery disease) Shingles History of blood transfusion Arthritis Shoulder fracture Kidney stone GERD (gastroesophageal reflux disease) Myocardial infarction HLD (hyperlipidemia) HTN (hypertension) Surgical History Surgical History S/P CABG x 3 H/O: hysterectomy H/O cardiac catheterization S/P CABG x 3 Family History Family History Mother Hypertension Sibling Patient's sister is in good health Social History Social History Social History: Smoking status: Never smoker Second hand tobacco smoke exposure: No Alcohol intake: never Substance use: never Substance use type: does not use Do You Feel Safe in your Home?: Yes Lack of Transportation: No Lack of Food: Never True Current Housing: I Have Housing Concerned About Future Housing: No Difficulty Paying Gas/Electric Bills: No Difficulty Paying for Meds: No Currently Unemployed: No Education: Decline to Answer Difficulty w/ Childcare or Family Care: No Living arrangements: with family Occupation/Education: retired Gender identity (if verbalized by the patient): Female Sexual Orientation (if Verbalized by the Patient): Straight or Heterosexual Spiritual care concerns: No Meds Home Medications and Allergies Home Medications ?Medication ?Instructions ?Recorded ?Confirmed ?Type aspirin 81 mg chewable tablet 1 tablet PO DAILY 07/09/19 09/27/24 History hydralazine 25 mg tablet See Rx Instructions .Route 11/03/23 09/27/24 Rx .COMPLEX #180 tabs atorvastatin 20 mg tablet See Rx Instructions .Route 02/07/24 09/27/24 Rx .COMPLEX #90 tabs irbesartan 150 mg tablet 150 mg PO DAILY #90 tabs 04/15/24 09/27/24 Rx lorazepam 0.5 mg tablet 0.5 mg PO QHS PRN anxiety #30 tabs 04/15/24 09/27/24 Rx carvedilol 3.125 mg tablet See Rx Instructions .Route 05/24/24 09/27/24 Rx .COMPLEX #270 tabs ropinirole 2 mg tablet 2 mg PO QHS #90 tabs 06/23/24 09/27/24 Rx Allergies Allergy/AdvReac Type Severity Reaction Status Date / Time No Known Allergies Allergy Unknown Verified 08/16/24 09:26 Vital Signs Vital Signs - 24 hr 09/27/24 04:45 09/27/24 04:49 09/27/24 04:49 Temperature 97.5 F L Pulse Rate 78 77 82 Respiratory Rate 25 H 18 Blood Pressure 189/89 H 180/89 H Pulse Oximetry 96 98 Oxygen Delivery Room Air 09/27/24 05:01 09/27/24 05:03 09/27/24 05:03 Temperature Pulse Rate 78 82 73 Respiratory Rate 25 H Blood Pressure 202/78 H 202/78 H 195/76 H Pulse Oximetry 97 Oxygen Delivery 09/27/24 05:05 09/27/24 05:16 09/27/24 06:29 Temperature Pulse Rate 70 71 84 Respiratory Rate 15 16 Blood Pressure 195/76 H 196/77 H Pulse Oximetry 96 96 Oxygen Delivery 09/27/24 07:19 09/27/24 07:30 09/27/24 08:23 Temperature 97.2 F L Pulse Rate 72 75 71 Respiratory Rate 16 18 18 Blood Pressure 137/59 L 142/57 H Pulse Oximetry 92 94 96 Oxygen Delivery 09/27/24 09:54 09/27/24 11:16 Temperature Pulse Rate Respiratory Rate Blood Pressure Pulse Oximetry 95 Oxygen Delivery Room Air Room Air Exam Narrative: General: alert and comfortable Eyes: EOMI, PERRLA ENNT External ears normal, Neck is supple, no masses, Respiratory systems: Clear to auscultation Cardiovascular S1, S2, normal rhythm, no murmur, rub, or gallop; no thrill or palpable murmurs on palpation. Gastrointestinal: soft, non-tender, and non-distended abdomen with no masses; BS present Skin: no rash, lesions, ulcerations, subcutaneous nodules or induration Musculoskeletal: no abnormality and no tenderness, normal ROM Neurologic: Alert and oriented x3, non focal Mental Status Exam: normal affect H&P: Results Labs Labs: Short CBC 09/27/24 Range/Units 05:00 WBC 6.7 (4.5-10.0) K/mm3 Hgb 11.6 L (12.0-15.0) g/dL Hct 36.0 L (37.0-47.0) % Plt Count 226 (150-375) k/mm3 BMP 09/27/24 05:00 Sodium 139 Potassium 4.0 Chloride 108 H Carbon Dioxide 21 L BUN 31 H Creatinine 1.43 H Glucose 123 H Calcium 9.1 Liver Function 09/27/24 Range/Units 05:00 Total Bilirubin 0.4 (0.2-1.3) mg/dL AST 23 (14-36) U/L ALT 21 (6-35) U/L Alkaline Phosphatase 83 (38-126) U/L Albumin 4.3 (3.5-5.1) g/dL Assessment and Plan Assessment and plan (1) Vertigo: Code(s): R42 - Dizziness and giddiness Status: Acute Plan Vertigo Likely BPPV r/o Stroke MRI brain no acute changes ECHO, Carotid duplex pending PT/OT consulted Neurology consulted HTN with elevated blood pressure restarted home regimen PRN Hydralazine monitor HLD continue home meds CKD 3b Cr 1.43, stable monitor CAD Continue Aspirin, Coreg and Lipitor DVT prophylaxis on Sq Lovenox Full code Hospitalist [facility] Advance Care Plan I have confirmed that the patient's Advanced Care Plan is present, code status is documented, or surrogate decision maker is listed in patient medical record.: Yes Medication Reconciliation I have utilized all available resources to obtain, update and review the patients current medications (includes all prescriptions, OTC, herbals, cannabis, and nutritional supplements).: Yes
[2024-09-27] MEDS: ATORVASTATIN 20 MG TABLET PO (17:23)
[2024-09-27] MEDS: carvediloL 3.125 MG TABLET 6.25 MG BY MOUTH (20:23)
[2024-09-27] MEDS: hydrALAZINE HCL 25 MG TABLET BY MOUTH (20:24)
[2024-09-27] MEDS: rOPINIRole HCL 1 MG TABLET 2 MG PO (20:24)
[2024-09-27] MEDS: ACETAMINOPHEN 325 MG TABLET 650 MG PO (21:00)
[2024-09-27] MEDS: LORazepam (*CRX) 0.5 MG TABLET PO (21:11)
[2024-09-28] VITALS (12 sets, daily range): BP systolic 102–149; BP diastolic 52–78; PULSE 72–93; RESP 18–20; TEMP 36.7–36.8; O2SAT 93–98
[2024-09-28 05:14] LABS: Basophils Percent Auto 0.3 % (0.2-1.2); Eosinophils Absolute Auto 0.1 K/mm3 (0-0.3); Eosinophils Percent Auto 1.2 % (0-4.4); Hematocrit 33.6 % (37.0-47.0); Hemoglobin 10.7 g/dL (12.0-15.0); Immature Granulocyte Absolute 0.01 K/mm3 (0.00-0.031); Immature Granulocyte Percent A 0.1 % (0-0.5); Lymphocytes Absolute Auto 2.51 K/mm3 (0.9-3.2); Lymphocytes Percent Auto 37.4 % (18.3-44.2); Mean Corpuscular HGB Conc 31.8 g/dl (32-36); Mean Corpuscular Hemoglobin 33.4 pg (26-34); Mean Platelet Volume 10.1 fl (7.4-10.4); Monocytes Absolute Auto 0.9 K/mm3 (0.1-0.6); Neutrophils Absolute Auto 3.2 K/mm3 (1.3-6.7); Platelet Count Result 200 k/mm3 (150-375); Red Cell Distribution Width 13.4 % (11.5-14.5); White Blood Count 6.7 K/mm3 (4.5-10.0)
[2024-09-28 05:25] LABS: Alanine Aminotransferase 18 U/L (6-35); Albumin Level 3.7 g/dL (3.5-5.1); Alkaline Phosphatase 54 U/L (38-126); Anion Gap 7 mmol/L (4-12); Aspartate Amino Transferase 21 U/L (14-36); Bilirubin,Total 0.5 mg/dL (0.2-1.3); Blood Urea Nitrogen 28 mg/dL (7-17); Calcium 8.7 mg/dL (8.4-10.2); Carbon Dioxide 23 mmol/L (22-30); Chloride 107 mmol/L (98-107); Estimated CRCL calculation 21 ml/min; Estimated Glomerular Filt Rate 34; Glucose 94 mg/dL (65-110); Magnesium 2.1 mg/dL (1.6-2.3); Potassium 4.1 mmol/L (3.4-5.0); Sodium 137 mmol/L (137-145)
[2024-09-28] MEDS: ASPIRIN 81 MG CHEWABLE TABLET PO (08:36)
[2024-09-28] MEDS: ENOXAPARIN 30 MG/0.3 ML SYRINGE SUB-Q (08:36)
[2024-09-28] MEDS: hydrALAZINE HCL 25 MG TABLET BY MOUTH ×2 (08:36→20:41)
[2024-09-28] MEDS: carvediloL 3.125 MG TABLET BY MOUTH (08:37)
[2024-09-28] MEDS: IRBESARTAN 150 MG TABLET PO (08:37)
[2024-09-28] MEDS: MECLIZINE HCL 25 MG TABLET PO (08:37)
--- NOTE | 2024-09-28 09:12 | PM.IMPN ---
Progress Note: A&P Assessment and Plan (1) Vertigo: Code(s): R42 - Dizziness and giddiness Status: Acute Plan Vertigo Likely BPPV r/o Stroke MRI brain no acute changes ECHO: Sclerotic aortic valve with mild stenosis valve area 1.6 cm2.Left ventricular systolic function is normal, estimated at 65-70%. Carotid duplex: 1. <50% stenosis in the right internal carotid artery. 2. 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 CTA Carotid Pending PT/OT consulted Neurology consulted HTN with elevated blood pressure restarted home regimen PRN Hydralazine monitor HLD continue home meds CKD 3b Cr 1.43, stable monitor CAD Continue Aspirin, Coreg and Lipitor DVT prophylaxis on Sq Lovenox Full code Subjective Date/time seen: 09/28/24 09:12 Interval history: Discuss with neurologist who recommended doing left carotid CTA. Reviewed carotid ultrasound which shows a 50-69% stenosis in the left internal carotid artery and less than 50% stenosis in the right internal carotid artery. Review of Systems Review of Systems: All other systems were reviewed and negative except as noted in the HPI above Exam Narrative: General: alert and comfortable Eyes: EOMI, PERRLA ENNT External ears normal, Neck is supple, no masses, Respiratory systems: Clear to auscultation Cardiovascular S1, S2, normal rhythm, no murmur, rub, or gallop; no thrill or palpable murmurs on palpation. Gastrointestinal: soft, non-tender, and non-distended abdomen with no masses; BS present Skin: no rash, lesions, ulcerations, subcutaneous nodules or induration Musculoskeletal: no abnormality and no tenderness, normal ROM Neurologic: Alert and oriented x3, non focal Mental Status Exam: normal affect Objective Data Vital Signs Vital Signs: Vital Signs - 24 hr 09/27/24 09:54 09/27/24 11:16 09/27/24 12:00 Temperature Pulse Rate 82 Respiratory Rate Blood Pressure Pulse Oximetry 95 Oxygen Delivery Room Air Room Air 09/27/24 13:59 09/27/24 16:00 09/27/24 20:00 Temperature 98.3 F Pulse Rate 87 75 Respiratory Rate 20 Blood Pressure 166/60 H Pulse Oximetry 96 Oxygen Delivery Room Air 09/27/24 20:00 09/27/24 20:03 09/27/24 20:23 Temperature 97.7 F Pulse Rate 79 80 80 Respiratory Rate 18 Blood Pressure 159/73 H Pulse Oximetry 96 Oxygen Delivery 09/28/24 00:00 09/28/24 04:00 09/28/24 04:32 Temperature 98.3 F Pulse Rate 82 76 76 Respiratory Rate 18 Blood Pressure 131/60 Pulse Oximetry 98 Oxygen Delivery 09/28/24 08:37 09/28/24 08:38 Temperature Pulse Rate 93 93 Respiratory Rate 18 Blood Pressure Pulse Oximetry 98 Oxygen Delivery Room Air Intake/Output Intake/Output: Intake & Output 09/25/24 09/26/24 09/27/24 09/28/24 23:59 23:59 23:59 23:59 Intake Total 680 660 Balance 680 660 Meds/Results Medications: Active Medications Generic Name Dose Route Start Last Admin Trade Name Freq PRN Reason Stop Dose Admin Acetaminophen 650 mg 09/27/24 20:46 09/27/24 21:00 Acetaminophen 325 Mg Tablet PO 650 mg Q6H PRN Administration Mild Pain (1-3) or Fever Aspirin 81 mg 09/28/24 09:00 09/28/24 08:36 Aspirin 81 Mg Chewable Tablet PO 81 mg DAILY ANGELI Administration Atorvastatin Calcium 20 mg 09/27/24 18:00 09/27/24 17:23 Atorvastatin 20 Mg Tablet PO 20 mg QPM ANGELI Administration Carvedilol 3.125 mg 09/28/24 09:00 09/28/24 08:37 Carvedilol 3.125 Mg Tablet BY MOUTH 3.125 mg DAILY ANGELI Administration Carvedilol 6.25 mg 09/27/24 21:00 09/27/24 20:23 Carvedilol 3.125 Mg Tablet BY MOUTH 6.25 mg HS ANGELI Administration Enoxaparin Sodium 30 mg 09/28/24 09:00 09/28/24 08:36 Enoxaparin 30 Mg/0.3 Ml Syringe SUB-Q 30 mg DAILY ANGELI Administration Hydralazine HCl 25 mg 09/27/24 21:00 09/28/24 08:36 Hydralazine Hcl 25 Mg Tablet BY MOUTH 25 mg Q12HR ANGELI Administration Irbesartan 150 mg 09/28/24 09:00 09/28/24 08:37 Irbesartan 150 Mg Tablet PO 150 mg DAILY ANGELI Administration Lorazepam 0.5 mg 09/27/24 12:14 09/27/24 21:11 Lorazepam (*Crx) 0.5 Mg Tablet PO 0.5 mg QHS PRN Administration anxiety Meclizine HCl 25 mg 09/28/24 09:00 09/28/24 08:37 Meclizine Hcl 25 Mg Tablet PO 25 mg QAM ANGELI Administration Perflutren Lipid Microsphere 0 ml 09/27/24 09:11 Perflutren Lipid Microspheres 1.5 Ml Vial Diluted To 10 Ml Total Volume IV PUSH 09/30/24 09:11 ONCE PRN adequate visualization Protocol Ropinirole HCl 2 mg 09/27/24 21:00 09/27/24 20:24 Ropinirole Hcl 1 Mg Tablet PO 2 mg QHS ANGELI Administration Radiology Results: ITS Impressions Head CT 09/27/24 06:44 Impression: No intracranial hemorrhage, mass, or acute infarct. Atrophy and chronic white matter changes, as above. Brain MRI 09/27/24 10:56 IMPRESSION: 1. Aging brain with small old lacunar infarct in the right frontal lobe periventricular white matter. No acute intracranial process or abnormally enhancing brain lesions. Chest X-Ray 09/27/24 12:32 IMPRESSION: 1. Opacity left lower lung zone most likely small paracardial fat pad with differential including atelectasis or pneumonia. 2. Small hiatal hernia. Carotid Doppler Study 09/27/24 13:31 IMPRESSION: 1. <50% stenosis in the right internal carotid artery. 2. 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 Labs Labs: Laboratory Results - last 24 hr 09/28/24 04:48 WBC 6.7 RBC 3.20 L Hgb 10.7 L Hct 33.6 L MCV 105.0 H MCH 33.4 MCHC 31.8 L RDW 13.4 Plt Count 200 MPV 10.1 Immature Gran % (Auto) 0.1 Neut % (Auto) 48.0 Lymph % (Auto) 37.4 [place] % (Auto) 13.0 H Eos % (Auto) 1.2 Baso % (Auto) 0.3 Lymph # (Auto) 2.51 [place] # (Auto) 0.9 H Eos # (Auto) 0.1 Baso # (Auto) 0.0 Abs Immat Gran (auto) 0.01 Absolute Neuts (auto) 3.2 Absolute Nucleated RBC 0.000 Nucleated RBC % 0.0 Sodium 137 Potassium 4.1 Chloride 107 Carbon Dioxide 23 Anion Gap 7 BUN 28 H Creatinine 1.48 H Estim Creat Clear Calc 21 Estimated GFR 34 L Glucose 94 Calcium 8.7 Magnesium 2.1 Total Bilirubin 0.5 AST 21 ALT 18 Alkaline Phosphatase 54 Total Protein 6.0 L Albumin 3.7 Hospitalist MIPS Advance Care Plan I have confirmed that the patient's Advanced Care Plan is present, code status is documented, or surrogate decision maker is listed in patient medical record.: Yes Medication Reconciliation I have utilized all available resources to obtain, update and review the patients current medications (includes all prescriptions, OTC, herbals, cannabis, and nutritional supplements).: Yes
--- NOTE | 2024-09-28 11:50 | WPDNEURCNPN ---
Assessment and Plan Assessment and plan (1) Vertigo: Code(s): R42 - Dizziness and giddiness Status: Acute (2) Tremor: Code(s): R25.1 - Tremor, unspecified Status: Acute (3) Carotid arterial disease: Qualifiers: Carotid artery disease type: unspecified Laterality: unspecified laterality Qualified Code(s): I77.9 - Disorder of arteries and arterioles, unspecified Code(s): I77.9 - Disorder of arteries and arterioles, unspecified Status: Acute (4) Tinnitus: Code(s): H93.19 - Tinnitus, unspecified ear Status: Acute (5) HTN (hypertension): Qualifiers: Hypertension type: unspecified Qualified Code(s): I10 - Essential (primary) hypertension Code(s): I10 - Essential (primary) hypertension Status: Acute (6) HLD (hyperlipidemia): Code(s): E78.5 - Hyperlipidemia, unspecified Status: Acute Plan 1. benign positional vertigo with a long history of the situation along with the description of very short lasting and also when turning around being helped with the eyes closed, could add the meclizine but will not make any significant difference all the pros and cons advised to her particularly to keep the eyes closed ,try to wait for few minutes before she moves around but if she wants to try the meclizine can always try 3 times a day. 2. Essential tremor with no evidence of parkinsonian disease And treatment can be continued as such. 3. Sclerotic aortic valve with mild stenosis and left atrial enlargement, patient is already on aspirin, atorvastatin and antihypertensive medications but the pros and cons were discussed with her the long-term consideration. 4. Hypercholesteremia patient is already receiving the treatment as mention. 5. Left internal carotid artery stenosis noted previously as well in October of 2020 even though treatment will continue as such CTA can be obtained delineate the circulation further. Consult date: 09/28/24 HPI: Geraldine Anthony is a 84 year old femaleHas been admitted to [facility] through [facility] emergency room for the complaints of vertigo and with the history that she has the history of vertigo in the past as well in addition to the ongoing diagnosis of 1. Hypertension 2. Hypercholesterolemia 3. Coronary artery disease. Her vertiginous symptomatology started about 20 years ago and today's visit when she woke up to use the restroom in the morning he was having severe dizziness described as spinning sensation she attempted to walk to the bathroom but due to the spinning sensation she ended up laying down so that she can a wide injuring herself EMS were called to the scene. At the time of this visit patient has been taking aspirin 81mg daily, she is not allergic to any medications, she has history of multiple medical problems but pertinent 1 1. Generalized anxiety disorder 2. Vitamin-D deficiency 3. Tremors of the right hand 4. Atrial fibrillation which is controlled 5. History of shingles in the past and 6. Hypertension 7. History of CABG x3 she is not a smoker does not drink alcohol and on initial examination in the emergency room she was found to have no focal neurological deficit except the findings suggestive of the essential tremor. Her vital signs were normal except blood pressure 189/89, CBC was normal, BMP was normal, and mast scan was negative, she was continued on aspirin 81mg daily, hydralazine 25mg daily, atorvastatin 25mg daily, I was started on 150mg daily, lorazepam 0.5mg p.r.n., carvedilol 3.125mg daily, and ropinirole 2mg daily, her initial CT scan of the head in the emergency room was negative for the bleed and compatible with chronic atrophy changes but there was no hydrocephalus, she already had the MRI of the brain which documented small old lacunar infarct in right frontal lobe periventricular white matter area and her carotid Doppler study is suggestive of 50 to 69% stenosis in left internal carotid artery. Her echocardiogram revealed sclerotic aortic valve with mild stenosis in addition to left atrial enlargement and calcified mitral valve annulus With mild stenosis, and left atrial enlargement. Review of Systems Review of Systems: All systems reviewed & are unremarkable except as noted in HPI and below PMFSH Past Medical History Medical History Dysuria NAYLEI (generalized anxiety disorder) Vitamin D deficiency Tremor of right hand Psychophysiological insomnia Postmenopausal Other fatigue Mixed hyperlipidemia Malaise and fatigue Lipid screening Leg pain, right Headache above the eye region Essential (primary) hypertension Environmental allergies Dysesthesia of face Disappearance and of family member Dehydration Atherosclerotic heart disease of [place] coronary artery without angina pectoris Complicated grieving Atrial fibrillation, controlled Anemia due to blood loss Muscle spasm AOM (acute otitis media) Chronic kidney disease, stage 3b Pneumonia, unspecified organism NAYELI (generalized anxiety disorder) CAD (coronary artery disease) Shingles History of blood transfusion Arthritis Shoulder fracture Kidney stone GERD (gastroesophageal reflux disease) Myocardial infarction HLD (hyperlipidemia) HTN (hypertension) Surgical History Surgical History S/P CABG x 3 H/O: hysterectomy H/O cardiac catheterization S/P CABG x 3 Family History Family History Mother Hypertension Sibling Patient's sister is in good health Social History Social History Social History: Smoking status: Never smoker Second hand tobacco smoke exposure: No Alcohol intake: never Substance use: never Substance use type: does not use Do You Feel Safe in your Home?: Yes Lack of Transportation: No Lack of Food: Never True Current Housing: I Have Housing Concerned About Future Housing: No Difficulty Paying Gas/Electric Bills: No Difficulty Paying for Meds: No Currently Unemployed: No Education: Decline to Answer Difficulty w/ Childcare or Family Care: No Living arrangements: with family Occupation/Education: retired Gender identity (if verbalized by the patient): Female Sexual Orientation (if Verbalized by the Patient): Straight or Heterosexual Spiritual care concerns: No Meds Home Medications and Allergies Home Medications ?Medication ?Instructions ?Recorded ?Confirmed ?Type aspirin 81 mg chewable tablet 1 tablet PO DAILY 07/09/19 09/27/24 History hydralazine 25 mg tablet See Rx Instructions .Route 11/03/23 09/27/24 Rx .COMPLEX #180 tabs atorvastatin 20 mg tablet See Rx Instructions .Route 02/07/24 09/27/24 Rx .COMPLEX #90 tabs irbesartan 150 mg tablet 150 mg PO DAILY #90 tabs 04/15/24 09/27/24 Rx lorazepam 0.5 mg tablet 0.5 mg PO QHS PRN anxiety #30 tabs 04/15/24 09/27/24 Rx carvedilol 3.125 mg tablet See Rx Instructions .Route 05/24/24 09/27/24 Rx .COMPLEX #270 tabs ropinirole 2 mg tablet 2 mg PO QHS #90 tabs 06/23/24 09/27/24 Rx Allergies Allergy/AdvReac Type Severity Reaction Status Date / Time No Known Allergies Allergy Unknown Verified 08/16/24 09:26 Vital Signs Vital Signs - 24 hr 09/27/24 12:00 09/27/24 13:59 09/27/24 16:00 Temperature 36.8 C Pulse Rate 82 87 75 Respiratory Rate 20 Blood Pressure 166/60 H Pulse Oximetry 96 Oxygen Delivery 09/27/24 20:00 09/27/24 20:00 09/27/24 20:03 Temperature 36.5 C Pulse Rate 79 80 Respiratory Rate 18 Blood Pressure 159/73 H Pulse Oximetry 96 Oxygen Delivery Room Air 09/27/24 20:23 09/28/24 00:00 09/28/24 04:00 Temperature Pulse Rate 80 82 76 Respiratory Rate Blood Pressure Pulse Oximetry Oxygen Delivery 09/28/24 04:32 09/28/24 08:00 09/28/24 08:37 Temperature 36.8 C Pulse Rate 76 78 93 Respiratory Rate 18 Blood Pressure 131/60 Pulse Oximetry 98 Oxygen Delivery 09/28/24 08:38 09/28/24 11:03 Temperature Pulse Rate 93 Respiratory Rate 18 Blood Pressure Pulse Oximetry 98 Oxygen Delivery Room Air Room Air Exam Narrative: Exam revealed her to be awake alert cooperative in no obvious acute distress, head normocephalic with no cranial bruits, ear nose throat examination normal, neck supple left cervical bruit, heart regular with murmur, lungs clear to auscultation, abdomen is soft with no organomegaly, neurologically she is awake alert oriented x3, his speech not dysphasic not dysarthric not dysphonic, pupils round regular reacting to light equally, feels the vision are full in all 4 quadrants to threat stimuli, extraocular movements are full with no nystagmus, facial sensation intact, face symmetrical, tongue in the midline and with no fasciculation when laying in the time ,motor examination of the upper and lower extremities revealed normal strength and tone with no drift but she was noted to have the right upper extremity action tremor with no evidence of cogwheeling on the passive movements of the upper or lower extremities , Deep tendon reflexes were symmetrical plantars were downgoing. Results Labs 09/28/24 04:48 09/28/24 04:48 Labs: Short CBC 09/28/24 Range/Units 04:48 WBC 6.7 (4.5-10.0) K/mm3 Hgb 10.7 L (12.0-15.0) g/dL Hct 33.6 L (37.0-47.0) % Plt Count 200 (150-375) k/mm3 BMP 09/28/24 04:48 Sodium 137 Potassium 4.1 Chloride 107 Carbon Dioxide 23 BUN 28 H Creatinine 1.48 H Glucose 94 Calcium 8.7 Liver Function 09/28/24 Range/Units 04:48 Total Bilirubin 0.5 (0.2-1.3) mg/dL AST 21 (14-36) U/L ALT 18 (6-35) U/L Alkaline Phosphatase 54 (38-126) U/L Albumin 3.7 (3.5-5.1) g/dL
[2024-09-28] MEDS: ATORVASTATIN 20 MG TABLET PO (17:21)
[2024-09-28] MEDS: ACETAMINOPHEN 325 MG TABLET 650 MG PO (20:40)
[2024-09-28] MEDS: carvediloL 3.125 MG TABLET 6.25 MG BY MOUTH (20:41)
[2024-09-28] MEDS: rOPINIRole HCL 1 MG TABLET 2 MG PO (20:41)
[2024-09-29] VITALS (7 sets, daily range): BP systolic 142–150; BP diastolic 56–70; PULSE 71–88; RESP 16–18; TEMP 36.7; O2SAT 95–97
[2024-09-29 06:12] LABS: Hematocrit 35.2 % (37.0-47.0); Hemoglobin 11.6 g/dL (12.0-15.0); Mean Corpuscular Hemoglobin 34.2 pg (26-34); Mean Corpuscular Volume 103.8 fl (80-100); Platelet Count Result 218 k/mm3 (150-375); Red Blood Count 3.39 M/mm3 (4.2-5.4); Red Cell Distribution Width 13.3 % (11.5-14.5); White Blood Count 7.8 K/mm3 (4.5-10.0)
[2024-09-29 06:26] LABS: Alanine Aminotransferase 18 U/L (6-35); Albumin Level 3.9 g/dL (3.5-5.1); Alkaline Phosphatase 61 U/L (38-126); Anion Gap 5 mmol/L (4-12); Aspartate Amino Transferase 25 U/L (14-36); Bilirubin,Total 0.6 mg/dL (0.2-1.3); Blood Urea Nitrogen 27 mg/dL (7-17); Calcium 8.8 mg/dL (8.4-10.2); Carbon Dioxide 26 mmol/L (22-30); Chloride 107 mmol/L (98-107); Estimated CRCL calculation 19 ml/min; Estimated Glomerular Filt Rate 30; Glucose 88 mg/dL (65-110); Potassium 4.3 mmol/L (3.4-5.0); Sodium 138 mmol/L (137-145)
[2024-09-29] MEDS: ENOXAPARIN 30 MG/0.3 ML SYRINGE SUB-Q (09:49)
[2024-09-29] MEDS: ASPIRIN 81 MG CHEWABLE TABLET PO (09:49)
[2024-09-29] MEDS: hydrALAZINE HCL 25 MG TABLET BY MOUTH (09:49)
[2024-09-29] MEDS: carvediloL 3.125 MG TABLET BY MOUTH (09:49)
[2024-09-29] MEDS: MECLIZINE HCL 25 MG TABLET PO (09:49)
[2024-09-29] MEDS: IRBESARTAN 150 MG TABLET PO (09:49)
--- NOTE | 2024-09-29 14:02 | P.DS_ITS ---
DS: Admitting Diagnosis Discharge Date 0 Admitting Diagnosis Dizziness DS: Discharge Diagnosis Discharge Diagnosis (1) Vertigo: Code(s): R42 - Dizziness and giddiness Status: Acute Plan Vertigo Likely BPPV r/o Stroke MRI brain no acute changes ECHO: Sclerotic aortic valve with mild stenosis valve area 1.6 cm2.Left ventricular systolic function is normal, estimated at 65-70%. Carotid duplex: 1. <50% stenosis in the right internal carotid artery. 2. 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 CTA Carotid Pending PT/OT consulted Neurology consulted HTN with elevated blood pressure restarted home regimen PRN Hydralazine monitor HLD continue home meds CKD 3b Cr 1.43, stable monitor CAD Continue Aspirin, Coreg and Lipitor DVT prophylaxis on Sq Lovenox Full code DS: Summary Hospital Course Hospital Course: 84 yo Female with PMH of HLD, HTN, CKD 3b, CAD who presented to the ER on account of dizziness. SHe noted that she woke up about midnight and noted the room spinning which improved with resting. Denies any chest pain, SOB, vomiting, poor oral intake, abd pain, diarrhea, and no focal deficits otherwise. ER eval notable for BP 189/89, Cr 1.43, MRI brain no acute changes, patient was admitted for further eval and care. Patient was evaluated by the neurologist. As per neurologist the BPPV possibly will be benefited from meclizine. Patient underwent CTA of neck which shows 70% stenosis. I discussed with the neurologist who agree patient can be followed as outpatient with vascular surgeon and as per neurologist patient needs statin, aspirin and Plavix. I explained to the patient who agrees with the plan. Currently patient denying any dizziness. Patient reported want to go home . Brain MRI shows:Aging brain with small old lacunar infarct in the right frontal lobe periventricular white matter. No acute intracranial process or abnormally enhancing brain lesions. Advised the patient to follow-up with her PCP hotel or motel receptionist, neurologist and vascular surgeon within 1 or 2 weeks upon discharge. Advised to rise slowly when getting up. Underwent vertigo exercise (Cope-Hallpike maneuver) with Physical therapy. Status at Discharge Cognitive/behavioral status at discharge: Stable Time Spent with Patient Time attestation: Total time spent providing and/or coordinating discharge services: 45 minutes Exam Narrative: General: alert and comfortable Eyes: EOMI, PERRLA ENNT External ears normal, Neck is supple, no masses, Respiratory systems: Clear to auscultation Cardiovascular S1, S2, normal rhythm, no murmur, rub, or gallop; no thrill or palpable murmurs on palpation. Gastrointestinal: soft, non-tender, and non-distended abdomen with no masses; BS present Skin: no rash, lesions, ulcerations, subcutaneous nodules or induration Musculoskeletal: no abnormality and no tenderness, normal ROM Neurologic: Alert and oriented x3, non focal Mental Status Exam: normal affect DS: Data Data Completed and Pending Labs on day of discharge: Labs from last 24 hours 09/29/24 05:33 WBC 7.8 RBC 3.39 L Hgb 11.6 L Hct 35.2 L MCV 103.8 H MCH 34.2 H MCHC 33.0 RDW 13.3 Plt Count 218 MPV 10.0 Sodium 138 Potassium 4.3 Chloride 107 Carbon Dioxide 26 Anion Gap 5 BUN 27 H Creatinine 1.61 H Estim Creat Clear Calc 19 Estimated GFR 30 L Glucose 88 Calcium 8.8 Total Bilirubin 0.6 AST 25 ALT 18 Alkaline Phosphatase 61 Total Protein 7.0 Albumin 3.9 Imaging Radiologist's impression: ITS Impressions Head CT 09/27/24 06:44 Impression: No intracranial hemorrhage, mass, or acute infarct. Atrophy and chronic white matter changes, as above. Brain MRI 09/27/24 10:56 IMPRESSION: 1. Aging brain with small old lacunar infarct in the right frontal lobe periventricular white matter. No acute intracranial process or abnormally enhancing brain lesions. Chest X-Ray 09/27/24 12:32 IMPRESSION: 1. Opacity left lower lung zone most likely small paracardial fat pad with differential including atelectasis or pneumonia. 2. Small hiatal hernia. Carotid Doppler Study 09/27/24 13:31 IMPRESSION: 1. <50% stenosis in the right internal carotid artery. 2. 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 Neck CTA 09/28/24 17:18 IMPRESSION: 1. 70% stenosis of the both the right and left carotid bulbs relative to normal distal artery lumen diameter (NASCET criteria). Discharge Plan Discharge Attending physician on discharge: Ab Breaux Consulting providers: Bayron Barone Discharging Clinician: Ab Breaux Patient Disposition: Home Activity: as tolerated Diet: as tolerated Discharge Instructions: ?Prevent falls ? If you have trouble standing or walking because of vertigo, you are at risk of falling. To lower this risk, make your home as safe as possible. Get rid of loose electrical cords, clutter, and slippery rugs. Also, wear sturdy, non-slip shoes, and make sure that your walkways are clear and well lit. ?Sit or lie down if you start to feel dizzy. If you start to feel dizzy while driving, rack puller right away. ?Use a cane or walker to help you balance if needed. ?Try to avoid changing positions quickly. When you wake up, sit up first, then get out of bed slowly. Check blood pressure 1 to 2 times a day. Record and bring into your doctor for review. Call your doctor if your blood pressure is greater than 180/110 or less than 90/45. Walk with cane or other assist device. Take precautions to avoid falls. Rise slowly from a lying or sitting position. Pause before standing or walking. Contact your doctor or call 911 and come to the Emergency Room if you have any type of trauma, lightheadedness with standing or other worrisome symptoms. Avoid NSAIDs (ibuprofen, naproxen, Aleve). Tylenol is safe to take. Follow-up with your primary care provider in 1-2 weeks. Please call for appointment. Follow-up with Vascular Surgeon, Neurologist,Cardiology in 2-4 weeks. Please call for an appointment. Thank you for using [facility] for your health care needs. Patient Instructions: Antibiotic Form Patient Language: Moh[place] Stand Alone Forms: General Discharge Information Follow-up/Referrals: Niall Figueredo MD [Primary Care Provider] - (Patient started on aspirin and Plavix due to carotid artery stenosis 70%. Patient needs a referral for vascular surgeon) Josh Guillermo MD [Physician] - 2 Weeks (Patient started on aspirin and Plavix due to carotid artery stenosis 70%. Patient needs a referral for vascular surgeon) Willy,Zen Durán MD [Non-Staff] - (Patient started on aspirin and Plavix due to carotid artery stenosis 70%. Patient needs a referral for vascular surgeon) Bayron Barone MD [Physician] - (Patient started on aspirin and Plavix due to carotid artery stenosis 70%. Patient needs a referral for vascular surgeon) Discharge Medications: New meclizine 25 mg Tablet 25 mg PO QAM Qty: 30 0RF clopidogrel [Plavix] 75 mg tablet 75 mg PO DAILY Qty: 30 0RF Continued lorazepam 0.5 mg tablet 0.5 mg PO QHS PRN (Reason: anxiety) Qty: 30 0RF irbesartan 150 mg tablet 150 mg PO DAILY Qty: 90 1RF aspirin 81 mg Tablet,Chewable 1 tablet PO DAILY hydralazine 25 mg tablet See Rx Instructions .ROUTE .COMPLEX Qty: 180 1RF Dose Instruction: TAKE 1 TABLET BY MOUTH TWICE A DAY Rx Instructions: TAKE 1 TABLET BY MOUTH TWICE A DAY atorvastatin 20 mg tablet See Rx Instructions .ROUTE .COMPLEX Qty: 90 3RF Dose Instruction: TAKE 1 TABLET BY MOUTH EVERY EVENING Rx Instructions: TAKE 1 TABLET BY MOUTH EVERY EVENING carvedilol 3.125 mg tablet See Rx Instructions .ROUTE .COMPLEX Qty: 270 1RF Dose Instruction: TAKE 1 TABLET IN THE AM AND 2 TABLETS IN THE PM Rx Instructions: TAKE 1 TABLET IN THE AM AND 2 TABLETS IN THE PM ropinirole 2 mg tablet 2 mg PO QHS Qty: 90 1RF Date of admission: 09/27/24 06:40 Primary Care Provider: Niall Figueredo Admitting Provider: Ben Calderón Attending physician on admission: Ben Calderón Condition: Stable
== END 2024-09-29 14:56 | disposition home or self-care (01) ==
LOC: ANHED 05:22 → ANH2MED 16:52
PROVIDERS: Internal Medicine; Admitting Provider Internal Medicine; Emergency Provider Emergency Medicine; PCP Family Medicine; Visit Provider General Practice
DX: R42 Dizziness and giddiness (principal); I65.22 Occlusion and stenosis of left carotid artery; H93.19 Tinnitus, unspecified ear; I35.8 Other nonrheumatic aortic valve disorders; F41.1 Generalized anxiety disorder; E78.2 Mixed hyperlipidemia; I25.10 Atherosclerotic heart disease of native coronary artery without angina pectoris; I12.9 Hypertensive chronic kidney disease with stage 1 through stage 4 chronic kidney disease, or unspecified chronic kidney disease; N18.32 Chronic kidney disease, stage 3b; I25.2 Old myocardial infarction; I48.91 Unspecified atrial fibrillation; G25.0 Essential tremor; E55.9 Vitamin D deficiency, unspecified; Z79.82 Long term (current) use of aspirin; Z79.899 Other long term (current) drug therapy; Z95.1 Presence of aortocoronary bypass graft
CPT/HCPCS: 36415; 70450; 70498; 70553; 71045; 80053; 83735; 85025; 85027; 85610; 85730; 93005; 93306; 93880; 96372; 96374; 96375; 97161; 99285; A9270; A9579; G0378; J1650; J2405; Q9967

== ENCOUNTER 2024-11-05 11:04 | Outpatient (CLI) | payer MEDICARE, SELFPAY ==
--- NOTE | ~2024-11-05 | DEXA_ITS ---
Bone Density Report Name: ANIA RANDOLPH Age: 84 Sex: Female Ethnicity: White Date of : 1940 Indication: osteopenia; height loss; hysterectomy; Referring Provider: SIRI NARAYANAN Study: Bone densitometry was performed. Exam Date: November 05, 2024 Accession number: [id number] Bone Density: Region BMD T-score Z-score Classification AP Spine(L1, L4) 0.947 -0.8 2.0 Normal Femoral Neck (Left) 0.511 -3.0 -0.5 Osteoporosis Total Hip (Left) 0.685 -2.1 0.2 Osteopenia Femoral Neck (Right) 0.486 -3.3 -0.8 Osteoporosis Total Hip (Right) 0.698 -2.0 0.3 Osteopenia Total Hip Mean 0.692 -2.1 0.3 Osteopenia World Health Organization criteria for BMD impression classify patients as: Normal (T-score at or above -1.0), Osteopenia (T-score between -1.0 and -2.5), or Osteoporosis (T-score at or below -2.5). 10-year Fracture Risk: FRAX not reported because: Some T-score for Spine Total or Hip Total or Femoral Neck at or below -2.5 Previous Exams: -- Region Exam Age BMD T-score BMD Change BMD Change Date g/cm2 vs Baseline vs Previous -- AP Spine (L1,L4) 11/05/2024 84 0.947 -0.8 -3.5%* 5.5%* 01/03/2020 79 0.898 -1.3 -8.5%* -8.5%* 08/23/2015 75 0.981 -0.5 Total Hip(Left) 11/05/2024 84 0.685 -2.1 -13.2%* -4.2%* 01/03/2020 79 0.716 -1.9 -9.4%* -9.4%* 08/23/2015 75 0.790 -1.2 Total Hip(Right) 11/05/2024 84 0.698 -2.0 -13.3%* -3.6% 01/03/2020 79 0.724 -1.8 -10.0%* -10.0%* 08/23/2015 75 0.805 -1.1 -- *Denotes significance at 95% confidence level, LSC for AP Spine = 0.022 g/cm2, LSC for Total Hip = 0.027 g/cm2 Clinical Information Provided by Patient: Has the following medical conditions: Hysterectomy Patient maximum height was 62.5 Menopause Age: 49 No regular weight bearing exercise Does not regularly consume dairy products Drinks caffeinated beverages Onset of menses at age 12 Number of children 3 Impression: The patient has osteoporosis, based on the Right Femoral Neck T-score. The BMD for the Total Hip(Left) decreased, changing by -4.2% since the last DXA exam. Discussion: INCREASED RISK OF FRACTURE. BONE DENSITY IS UNDESIRABLY LOW AT ONE OR MORE SKELETAL SITES, CONSISTENT WITH POSTMENOPAUSAL OSTEOPOROSIS. This patient's lowest T-score meets the World Health Organization's (WHO) criteria for osteoporosis at one or more sites (T-score -2.5 or below). In untreated patients, the risk of osteoporotic fracture increases approximately two-fold for each 1.0 SD decrease in T-score. Low bone density is not the only risk factor for fracture; also consider factors such as patient's age, frailty or poor health, risk of falling, risk of injury, previous osteoporotic fracture, family history of osteoporosis, cigarette smoking, low body weight, etc. Not everyone with low bone mineral density has osteoporosis; osteomalacia and other metabolic bone disorders should also be considered. Patients who have osteoporosis should be evaluated for specific diseases and conditions (secondary causes) that may cause or contribute to bone loss. The [place] [employer] Endocrinologists (AACE) and National Osteoporosis Foundation (NOF) recommend pharmacologic intervention for all postmenopausal women whose T-score is in this range. The patient should follow a healthful lifestyle (good nutrition with adequate calcium and vitamin D, and appropriate weight-bearing exercise). Follow-Up: Consider a repeat BMD and Vertebral Fracture Assessment (VFA) exam in 2 years or sooner if medically necessary, to reassess this patient's status. Reported by: DAIANA on 11/05/2024 11:41:00 AM. Reviewed, dictated and finalized at location A.
== END 2024-11-05 11:05 | disposition home or self-care (01) ==
LOC: MICIMG 11:05
PROVIDERS: PCP Family Medicine; Visit Provider Student in an Organized Health Care Education/Training Program
DX: Z78.0 Asymptomatic menopausal state (principal); M81.0 Age-related osteoporosis without current pathological fracture; M85.852 Other specified disorders of bone density and structure, left thigh; M85.851 Other specified disorders of bone density and structure, right thigh
CPT/HCPCS: 77080

== ENCOUNTER 2024-11-23 13:38 | Outpatient (CLI) | payer MEDICARE, SELFPAY ==
--- NOTE | ~2024-11-23 | MR_ITS ---
MRI of the lumbar spine Clinical History: Radiculopathy Technique: Axial T2-weighted images, and sagittal T1-weighted, T2-weighted, and T2 fat-sat images wer e acquired. Findings: There is levoscoliosis of the lumbar spine. No acute fracture seen. There is 7 mm anterolis thesis of L5 over S1. There is 3 mm retrolisthesis of L2 over L3. There is 3 mm retrolisthesis of L1 over L2. No suspicious bone marrow signal abnormality identified. At L1-L2, there is moderate degenerative distended. There is minimal disc bulge with moderate to adva nced facet arthropathy. No central canal stenosis. Probable mild right lateral recess stenosis. There is severe right neural foraminal narrowing. Left neural foramen preserved. At L2-L3, there is severe degenerative disc narrowing. There is mild disc bulge with advanced facet a rthropathy. There is right lateral recess stenosis with mild central canal stenosis. There is severe right neural foraminal narrowing. Left neural foramen is preserved. At L3-L4, there is moderate degenerative distended. There is diffuse disc bulge with severe facet art hropathy, resulting in severe spinal canal stenosis/thecal sac compression. There is severe bilateral neural foraminal contrast. At L4-L5, there is diffuse disc bulge with severe facet arthropathy. No central canal stenosis. There is severe left neural foraminal narrowing, and moderate right neural foraminal narrowing. At L5-S1, there is diffuse disc bulge/uncovering, with severe facet arthropathy. There is probable le ft lateral recess stenosis with severe left neural foraminal narrowing. Right neural foramen intact. No central canal stenosis. Paravertebral soft tissues are unremarkable. Impression: Severe degenerative spondylosis, as detailed above, worst at L3-L4. There is severe spinal canal sten osis L3-L4. There is multilevel neural foraminal narrowing. Levoscoliosis. 7 mm anterolisthesis of L5 over S1. 3 mm retrolisthesis of L2 over L3, and of L1 over L2. Reviewed, dictated and finalized at [facility]. Impression: Severe degenerative spondylosis, as detailed above, worst at L3-L4. There is se rainer spinal canal stenosis L3-L4. There is multilevel neural foraminal narrowin g. Levoscoliosis. 7 mm anterolisthesis of L5 over S1. 3 mm retrolisthesis of L2 over L3, and of L1 over L2.
--- NOTE | ~2024-11-23 | XR_ITS ---
HISTORY: Sacroiliitis COMPARISON: None TECHNIQUE: 3 views of the pelvis were performed. FINDINGS: Narrowing of the bilateral sacroiliac joint spaces are present, with sclerosis. Osteitis pubis is incidentally noted. Joint space narrowing within the superior lateral femoral acetabular joint spaces with acetabular scl erosis and cystic with osteoarthritis. Significant degenerative disease within the visualized portion of the lumbar spine. Vascular calcifications are also noted. IMPRESSION: Significant degenerative disease with diffuse bony demineralization, findings suggesting sacroiliitis, osteitis pubis and degenerative disease within the visualized lumbar spine and bilater al femoral acetabular joint spaces. Reviewed, dictated and finalized at location A. IMPRESSION: Significant degenerative disease with diffuse bony demineralizatio n, findings suggesting sacroiliitis, osteitis pubis and degenerative disease wi thin the visualized lumbar spine and bilateral femoral acetabular joint spaces.
== END 2024-11-23 13:39 | disposition home or self-care (01) ==
PROVIDERS: PCP Family Medicine; Visit Provider Physical Medicine & Rehabilitation Pain Medicine
DX: M46.1 Sacroiliitis, not elsewhere classified (principal); M47.896 Other spondylosis, lumbar region; M41.87 Other forms of scoliosis, lumbosacral region; M43.16 Spondylolisthesis, lumbar region
CPT/HCPCS: 72148; 72190

== ENCOUNTER 2025-04-14 12:31 | Observation (INO) | payer MEDICARE, SELFPAY ==
[2025-04-14] VITALS (11 sets, daily range): BP systolic 163–232; BP diastolic 58–94; PULSE 79–102; RESP 16–27; TEMP 36.5–36.6; O2SAT 93–98; BMI 20.7
--- NOTE | ~2025-04-14 | CT_ITS ---
EXAM/PROCEDURE: CT abdomen pelvis w con HISTORY: LLQ pain COMPARISON: 03/06/2019 TECHNIQUE: IV contrast enhanced CT of the abdomen and pelvis performed FINDINGS: In the lower chest, bibasilar fibrotic and atelectatic changes in lung bases which are otherwise clear. Moderate size hiatal hernia. Heart size normal. Coronary artery calcifications and/or stenting noted. No significant pericardial effusion seen. In the ABDOMEN AND PELVIS, the bowel gas pattern is nonobstructive with no free air free fluid or pneumatosis. Moderate to severe diverticular disease with very slight strandy changes along the lateral margin of the rectosigmoid colon as seen on images 104 through 112 series 3. In close proximity, in the left adnexal region image 99 series 3, there is a 4.8 x 4.8 x 2.4 cm mildly complex cystic mass versus 2 cysts which are contiguous with each other. No discrete fluid accumulation or abscess. Normal size appendix. 3.1 cm infrarenal abdominal aortic aneurysm with extensive apical sclerotic calcification. No acute arterial occlusion seen. Urinary bladder appears normal. No hydroureteronephrosis or obstructing ureteral stones. Gallbladder pancreas spleen stomach and liver with no focal acute process. Diffuse degenerative changes throughout the bones. Moderate levorotatory curvature of the lumbar spine. Patient may be status post hysterectomy. IMPRESSION: 1. Subtle changes in the left lower quadrant associated with the proximal sigmoid bowel diverticuli suspicious for very mild or early diverticulitis. No abscess or perforation. 2. Also in the left lower quadrant, a 4.8 x 4.8 x 2.4 cm mildly complex appearing cystic mass in the left adnexal region. Correlate with follow-up pelvic ultrasound. 3. Several chronic appearing findings as above. Reviewed, dictated and finalized at location A. E ADJUSTMENT SUPERVISOR IMPRESSION: 1. Subtle changes in the left lower quadrant associated with the proximal sigmo id bowel diverticuli suspicious for very mild or early diverticulitis. No absce ss or perforation. 2. Also in the left lower quadrant, a 4.8 x 4.8 x 2.4 cm mildly complex appeari ng cystic mass in the left adnexal region. Correlate with follow-up pelvic ultr asound. 3. Several chronic appearing findings as above.
--- NOTE | ~2025-04-14 | XR_ITS ---
EXAMINATION: XR chest 2V DATE: 04/14/2025 13:48 INDICATION: Shortness of breath. Hypertension. TECHNIQUE: Frontal and lateral views of the chest were obtained. COMPARISON: Chest x-ray dated 09/27/2024 FINDINGS: Cardiomegaly and postoperative changes of the heart. Severe atherosclerotic aorta. Lungs do not show acute findings. IMPRESSION: 1. No acute pulmonary findings. 2. Cardiomegaly, atherosclerotic aorta and postoperative changes of the heart. Reviewed, dictated and finalized at location T. STRIAL NURSE
--- NOTE | ~2025-04-14 | US_ITS ---
EXAMINATION: Ultrasound pelvis, Limited: DATE: 04/14/2025 INDICATION: Left adnexal cystic mass noted on CT abdomen and pelvis. Follow-up. Previous hysterectomy. TECHNIQUE: Limited transabdominal pelvic ultrasound with Doppler. COMPARISON: CT abdomen pelvis dated 04/14/2025 showing 4.8 x 2.4 cm cyst within left pelvis. FINDINGS: Limited transabdominal ultrasound with Doppler confirms the presence of bilocular cystic lesion in the left lower quadrant with total size 4.6 x 2.5 cm, consistent with the CT findings. Color flow is noted in the periphery. No free fluid in the pelvis. IMPRESSION: 1. Limited ultrasound examination of the lower abdomen and pelvis shows evidence thin-walled bilocular cystic lesion, 4.6 x 2.5 cm in size, consistent with the CT findings. Reviewed, dictated and finalized at location T. F NECK LOADER IMPRESSION: 1. Limited ultrasound examination of the lower abdomen and pelvis shows evidenc e thin-walled bilocular cystic lesion, 4.6 x 2.5 cm in size, consistent with th e CT findings.
--- NOTE | ~2025-04-14 | CT_ITS ---
EXAMINATION: CT brain wo con, 04/14/2025 15:50 WEATHERIZATION OPERATIONS MANAGER HISTORY: HTN COMPARISON: No comparisons available. Technique: Axial images obtained of the brain without contrast. One or more of the following dose reduction techniques were used: automated exposure control, adjustment of the mA and/or kV according to patient size, use of iterative reconstruction technique. Findings: No acute infarct or parenchymal hemorrhage. No abnormal mass or mass effect. No midline shift. No extra-axial fluid collections. No hydrocephalus. Mastoid air cells unremarkable. Sinuses and orbits unremarkable. No acute fracture. No significant facial or scalp soft tissue swelling evident. No radiopaque foreign body is seen. Impression: 1.No acute intracranial abnormality. Reviewed, dictated and finalized at location P. HERIZATION OPERATIONS MANAGER Impression: 1.No acute intracranial abnormality.
--- NOTE | 2025-04-14 12:36 | ECG_ITS ---
Test Date: 2025-04-14 12:42:43 Measurements Intervals [place] Rate: 83 P: 59 [place]: 178 QRS: 63 QRSD: 124 T: 29 QT: 378 QTc: 446 Interpretive Statements SINUS RHYTHM RIGHT BUNDLE-BRANCH BLOCK AND REPOLARIZATION ABNORMALITIES Compared to ECG 09/27/2024 04:50:03 NO SIGNIFICANT CHANGES Electronically Signed On 04-14-2025 14:48:01 GLOBAL COMPENSATION DIRECTOR by Dominic Coronel M.D.
[2025-04-14 12:56] LABS: Hematocrit 36.7 % (37.0-47.0); Hemoglobin 12.2 g/dL (12.0-15.0); Immature Granulocyte Percent A 0.2 % (0-0.5); Lymphocytes Absolute Auto 2.59 K/mm3 (0.9-3.2); Mean Corpuscular HGB Conc 33.2 g/dl (32-36); Mean Corpuscular Hemoglobin 34.8 pg (26-34); Mean Corpuscular Volume 104.6 fl (80-100); Nucleated Red Blood Cells Absolute Auto 0.000 K/mm3 (0.0-0.012); Nucleated Red Blood Cells Perc 0.0 % (0.0-0.2); Platelet Count Result 252 k/mm3 (150-375); Red Blood Count 3.51 M/mm3 (4.2-5.4); White Blood Count 8.4 K/mm3 (4.5-10.0)
[2025-04-14 13:19] LABS: Alanine Aminotransferase 19 U/L (6-35); Albumin Level 4.4 g/dL (3.5-5.1); Alkaline Phosphatase 64 U/L (38-126); Anion Gap 7 mmol/L (4-12); Aspartate Amino Transferase 31 U/L (14-36); Bilirubin,Total 0.8 mg/dL (0.2-1.3); Blood Urea Nitrogen 20 mg/dL (7-17); Calcium 9.4 mg/dL (8.4-10.2); Carbon Dioxide 23 mmol/L (22-30); Chloride 106 mmol/L (98-107); Estimated CRCL calculation 22 ml/min; Estimated Glomerular Filt Rate 38; Glucose 112 mg/dL (65-110); INR 1.0; Lipase 112 U/L (23-300); Partial Thromboplastin Time 25.0 Seconds (22.3-36.8); Potassium 4.3 mmol/L (3.4-5.0); Prothrombin Time 13.7 Seconds (11.1-14.7); Sodium 136 mmol/L (137-145); Total Protein 7.7 g/dL (6.3-8.2)
[2025-04-14 13:29] LABS: Troponin I < 0.012 ng/mL (0.000-0.034)
--- NOTE | 2025-04-14 14:48 | PC.NURSE ---
patient concerned that she has been roomed and not seen ERP, this RN explained that we will need to repeat blood work and EKG in approximately an hour to ensure that her cardiac enzymes are not elevated. patient verbalized understanding. patient c/o ZAFAR, lights dimmed for comfort.
--- NOTE | 2025-04-14 16:26 | ED.GENADULT ---
HPI - General Adult General Chief complaint: Recheck/Abnormal Lab/Rx Stated complaint: HTN, fatigue Time Seen by Provider: 04/14/25 15:11 History of Present Illness HPI narrative: 85-year-old female with history of hypertension present to the emergency department for evaluation hypertension and left lower quadrant abdominal pain. Patient reports her blood pressure was running high today and she had a associated headache. Patient states she has had left lower quadrant pain over the course of the last few days. Patient does take carvedilol irbesartan daily and does take hydralazine once to twice a day depending on what her blood pressure is. Patient states over the last few days she has needed to take her 25 mg hydralazine twice a day. Patient did take her hydralazine this morning. My time of evaluation patient states she is still having some abdominal pain but states the headache is resolved. Patient denies any other neurologic changes. Related Data Home Medications ?Medication ?Instructions ?Recorded ?Confirmed ?Last Taken ?Type aspirin 81 mg chewable tablet 1 tablet PO DAILY 07/09/19 04/14/25 04/13/25 History hydralazine 25 mg tablet 25 mg PO Q12H 01/05/25 04/14/25 04/14/25 History ropinirole 2 mg tablet 2 mg PO QHS 02/02/25 04/14/25 04/13/25 History Allergies Allergy/AdvReac Type Severity Reaction Status Date / Time No Known Allergies Allergy Unknown Verified 04/14/25 21:36 Review of Systems Review of Systems: All systems reviewed & are unremarkable except as noted in HPI and below PMFSH Past Medical History Medical History Dysuria NAYELI (generalized anxiety disorder) Vitamin D deficiency Tremor of right hand Psychophysiological insomnia Postmenopausal Other fatigue Mixed hyperlipidemia Malaise and fatigue Lipid screening Leg pain, right Headache above the eye region Essential (primary) hypertension Environmental allergies Dysesthesia of face Disappearance and of family member Dehydration Atherosclerotic heart disease of [place] coronary artery without angina pectoris Complicated grieving Atrial fibrillation, controlled Anemia due to blood loss Muscle spasm AOM (acute otitis media) Chronic kidney disease, stage 3b Pneumonia, unspecified organism NAYELI (generalized anxiety disorder) CAD (coronary artery disease) Shingles History of blood transfusion Arthritis Shoulder fracture Kidney stone GERD (gastroesophageal reflux disease) Myocardial infarction HLD (hyperlipidemia) HTN (hypertension) Surgical History Surgical History S/P CABG x 3 H/O: hysterectomy H/O cardiac catheterization S/P CABG x 3 Family History Family History Mother Hypertension Sibling Patient's sister is in good health Social History Social History (Updated 04/14/25 @ 20:07 by Meredith Cespedes APRN) Social History: . she has 3 sons. retired from teaching. son inez is her poa code status : full code Smoking status: Never smoker Second hand tobacco smoke exposure: No Alcohol intake: current Drinks per week: 1 Substance use: never Substance use type: does not use Do You Feel Safe in your Home?: Yes Lack of Transportation: No Lack of Food: Never True Current Housing: I Have Housing Concerned About Future Housing: No Difficulty Paying Gas/Electric Bills: No Difficulty Paying for Meds: No Currently Unemployed: No Education: Bachelor's Degree Difficulty w/ Childcare or Family Care: No Living arrangements: with family Occupation/Education: retired Gender identity (if verbalized by the patient): Female Sexual Orientation (if Verbalized by the Patient): Straight or Heterosexual Spiritual care concerns: No Exam Narrative: APPEARANCE: Well appearing, no pain, no distress, well-nourished. HEAD: normocephalic, atraumatic. EYES: PERRLA/EOMI, conjunctivae clear. NOSE: Normal no drainage EARS:TMS clear with good light reflex. THROAT: Pharynx clear, no exudate. NECK: Supple. No adenopathy, no masses. RESPIRATORY: Airway patent, respirations nonlabored. Clear to auscultation bilaterally, no rales, rhonchi, wheezing. CARDIOVASCULAR: Regular rate and rhythm without murmurs rubs or gallops. ABDOMINAL: Left lower quadrant tenderness to palpation MUSCULOSKELETAL: Moves all extremities. Strength/ROM intact, No edema, No calf tenderness. NEURO: Alert. Cranial nerves II through XII intact. Good gait. Good coordination SKIN: Warm, dry. Normal Color Course Vital Signs Vital signs: Vital Signs Temperature 98 F 04/14/25 12:34 Pulse Rate 95 04/14/25 12:34 Respiratory Rate 18 04/14/25 12:34 Blood Pressure 222/94 H 04/14/25 12:34 Pulse Oximetry 97 04/14/25 12:34 Oxygen Delivery Room Air 04/14/25 12:34 Temperature 97.7 F 04/14/25 21:33 Pulse Rate 85 04/14/25 21:33 Respiratory Rate 16 04/14/25 21:33 Blood Pressure 186/58 H 04/14/25 21:33 Pulse Oximetry 93 04/14/25 21:33 Oxygen Delivery Room Air 04/14/25 12:34 Medical Decision Making MDM Narrative Medical decision making narrative: 85-year-old female presents emergency department for evaluation for hypertension. Patient is currently afebrile with no leukocytosis hemoglobin of 12.2. INR 1.0. Creatinine of 1.32. Troponin is not elevated. Head CT was negative for acute intracranial abnormality and chest x-ray. CT scan was concerning for diverticulitis and a left adnexal cystic mass. Ultrasound was recommended and did confirm a left adnexal cystic mass. Patient was started on Rocephin and Flagyl for diverticulitis. Patient's blood pressure was improved with IV and p.o. meds. Patient was given Tylenol for headache. OB Gyne was consulted for the adnexal mass. Patient was admitted to the hospitalist. Patient was updated on the plan for admission. All questions concerns were addressed. Differential Diagnosis Differential Diagnosis: Colitis, diverticulitis, hypertensive emergency, hypertensive crisis, adnexal mass, adnexal cyst, adnexal abscess Vital Signs Vital Signs: Vital Signs Temperature 98 F 04/14/25 12:34 Pulse Rate 95 04/14/25 12:34 Respiratory Rate 18 04/14/25 12:34 Blood Pressure 222/94 H 04/14/25 12:34 Pulse Oximetry 97 04/14/25 12:34 Oxygen Delivery Room Air 04/14/25 12:34 Temperature 97.7 F 04/14/25 21:33 Pulse Rate 85 04/14/25 21:33 Respiratory Rate 16 04/14/25 21:33 Blood Pressure 186/58 H 04/14/25 21:33 Pulse Oximetry 93 04/14/25 21:33 Oxygen Delivery Room Air 04/14/25 12:34 Lab Data Lab results reviewed: Yes I reviewed the patient's lab results. 04/14/25 12:51 11/20/25 12:51 Labs: Lab Results 04/14/25 04/14/25 04/14/25 Range/Units 12:51 16:29 18:41 WBC 8.4 (4.5-10.0) K/mm3 RBC 3.51 L (4.2-5.4) M/mm3 Hgb 12.2 (12.0-15.0) g/dL Hct 36.7 L (37.0-47.0) % MCV 104.6 H (80-100) fl MCH 34.8 H (26-34) pg MCHC 33.2 (32-36) g/dl RDW 12.7 (11.5-14.5) % Plt Count 252 (150-375) k/mm3 MPV 9.6 (7.4-10.4) fl Immature Gran % (Auto) 0.2 (0-0.5) % Neut % (Auto) 54.8 (45.5-73.1) % Lymph % (Auto) 30.9 (18.3-44.2) % [place] % (Auto) 12.6 H (2.6-8.5) % Eos % (Auto) 1.1 (0-4.4) % Baso % (Auto) 0.4 (0.2-1.2) % Lymph # (Auto) 2.59 (0.9-3.2) K/mm3 [place] # (Auto) 1.1 H (0.1-0.6) K/mm3 Eos # (Auto) 0.1 (0-0.3) K/mm3 Baso # (Auto) 0.0 (0.0-0.1) K/mm3 Abs Immat Gran (auto) 0.02 (0.00-0.031) K/mm3 Absolute Neuts (auto) 4.6 (1.3-6.7) K/mm3 Absolute Nucleated RBC 0.000 (0.0-0.012) K/mm3 Nucleated RBC % 0.0 (0.0-0.2) % PT 13.7 (11.1-14.7) Seconds INR 1.0 APTT 25.0 (22.3-36.8) Seconds Sodium 136 L (137-145) mmol/L Potassium 4.3 (3.4-5.0) mmol/L Chloride 106 (98-107) mmol/L Carbon Dioxide 23 (22-30) mmol/L Anion Gap 7 (4-12) mmol/L BUN 20 H (7-17) mg/dL Creatinine 1.32 H (0.7-1.0) mg/dL Estim Creat Clear Calc 22 ml/min Estimated GFR 38 L (59 - ) Glucose 112 H (65-110) mg/dL Calcium 9.4 (8.4-10.2) mg/dL Total Bilirubin 0.8 (0.2-1.3) mg/dL AST 31 (14-36) U/L ALT 19 (6-35) U/L Alkaline Phosphatase 64 (38-126) U/L Troponin I < 0.012 < 0.012 < 0.012 (0.000-0.034) ng/mL Total Protein 7.7 (6.3-8.2) g/dL Albumin 4.4 (3.5-5.1) g/dL Lipase 112 (23-300) U/L Imaging Data Attestation: I personally reviewed and interpreted this imaging study as follows: My impression: Chest x-ray: No acute cardiopulmonary abnormality Radiologist's impression: Impressions Chest X-Ray 04/14/25 13:53 IMPRESSION: 1. No acute pulmonary findings. 2. Cardiomegaly, atherosclerotic aorta and postoperative changes of the heart. Head CT 04/14/25 15:58 Impression: 1.No acute intracranial abnormality. Abdomen/Pelvis CT 04/14/25 16:53 IMPRESSION: 1. Subtle changes in the left lower quadrant associated with the proximal sigmoid bowel diverticuli suspicious for very mild or early diverticulitis. No abscess or perforation. 2. Also in the left lower quadrant, a 4.8 x 4.8 x 2.4 cm mildly complex appearing cystic mass in the left adnexal region. Correlate with follow-up pelvic ultrasound. 3. Several chronic appearing findings as above. Pelvis Ultrasound 04/14/25 18:01 IMPRESSION: 1. Limited ultrasound examination of the lower abdomen and pelvis shows evidence thin-walled bilocular cystic lesion, 4.6 x 2.5 cm in size, consistent with the CT findings. Discharge Plan Discharge Clinical Impression: Hypertension, Diverticulitis, Ovarian cystic mass Patient Disposition: Still a Patient Condition: Serious
--- NOTE | 2025-04-14 16:44 | PC.NURSE ---
patient stated that the Morphine was too much for her / PPS ZAFAR and less than that PPS abd pain; MINNA Del Toro notified and as per patient request Tylenol ordered. Patient currently in scan.
--- NOTE | 2025-04-14 17:00 | ECG_ITS ---
Test Date: 2025-04-14 17:09:31 Measurements Intervals [place] Rate: 89 P: -4 [place]: 141 QRS: 61 QRSD: 134 T: 8 QT: 392 QTc: 479 Interpretive Statements SINUS RHYTHM POSSIBLE LEFT ATRIAL ENLARGEMENT [-0.1mV P-WAVE IN V1/V2] RIGHT BUNDLE BRANCH BLOCK ABNORMAL ECG Compared to ECG 04/14/2025 12:42:43 NO DIFFERENCE Electronically Signed On 04-15-2025 07:50:45 CORRECTIONAL SECURITY OFFICER by Ronnell Kong M.D.
[2025-04-14] MEDS: ACETAMINOPHEN 500 MG TABLET 1000 MG PO (17:20)
[2025-04-14 17:23] LABS: Troponin I < 0.012 ng/mL (0.000-0.034)
--- NOTE | 2025-04-14 18:54 | ECG_ITS ---
Test Date: 2025-04-14 18:58:57 Measurements Intervals [place] Rate: 73 P: 12 ID: [id number] QRS: 58 QRSD: 149 T: 28 QT: 421 QTc: 466 Interpretive Statements SINUS RHYTHM RIGHT BUNDLE BRANCH BLOCK ABNORMAL ECG Compared to ECG 04/14/2025 17:09:31 NO DIFFERENCE Electronically Signed On 04-15-2025 07:52:29 [employer]ERGLASS ROVING WINDER by Ronnell Kong M.D.
[2025-04-14 19:28] LABS: Troponin I < 0.012 ng/mL (0.000-0.034)
[2025-04-14] MEDS: cefTRIAXone 1 GM in SODIUM CHLORIDE 0.9% IV 50 ML 100 ML IVPB (19:29)
--- NOTE | 2025-04-14 20:04 | PM.IMHP ---
H&P: HPI History of Present Illness Date/Time: 04/14/25 20:04 Chief Complaint: Hypertension and fatigue Narrative: This is an 85-year-old female patient who has a history of hypertension. The patient stated that she came to the emergency room because her blood pressures been running high all day. She also has a mild discomfort to left lower quadrant. The patient has been taking Coreg, irbesartan and hydralazine for her blood pressure stills blood pressure remains elevated today. The patient is taking her medication as directed today. The patient are denies any signs and symptoms from her hypertension. Her H&H is 12.2 and 36.7. Her sodium was 136. BUN is 20 creatinine is 1.32. GFR is 38 which is her baseline. Troponins are negative x3. Chest x-ray was read as no acute pulmonary findings. Cardiomegaly, atherosclerotic aortic and post operative changes of the heart. Head CT was read as no acute intracranial abnormality. Abdomen pelvis CT was read as a following IMPRESSION: 1. Subtle changes in the left lower quadrant associated with the proximal sigmoid bowel diverticuli suspicious for very mild or early diverticulitis. No abscess or perforation. 2. Also in the left lower quadrant, a 4.8 x 4.8 x 2.4 cm mildly complex appearing cystic mass in the left adnexal region. Correlate with follow-up pelvic ultrasound. 3. Several chronic appearing findings as above. Pelvic ultrasound was read as a following 1. Limited ultrasound examination of the lower abdomen and pelvis shows evidence thin-walled bilocular cystic lesion, 4.6 x 2.5 cm in size, consistent with the CT findings. OBGYN has been consulted. Current blood pressure is 186/52. The patient was started on Rocephin and Flagyl in the emergency room. She was also given morphine and hydralazine as well. The patient is being admitted to observation status on the date of service of 04/14/2025 Review of Systems Constitutional: Constitutional: Reports as per HPI and Reports no additional constitutional complaints Eyes: Eyes: Reports as per HPI and Reports no additional eye complaints ENT: Reports no additional ear, nose, mouth, and throat complaints and Reports Normal hearing present Cardiovascular: Cardiovascular: Reports no additional cardiovascular complaints Respiratory: Respiratory: Reports as per HPI and Reports no additional respiratory complaints Gastrointestinal: Gastrointestinal: Reports as per HPI and Reports no additional gastrointestinal complaints Genitourinary: Genitourinary: Reports no additional female genitourinary complaints Musculoskeletal: Musculoskeletal: Reports no additional musculoskeletal complaints Integumentary/Breasts: Skin/Breast: Reports system reviewed and no additional complaints, except as docu Neurologic: Reports no additional neurologic complaints and Reports Normal hearing present Psychiatric: Psychiatric: Reports no additional psychiatric complaints and Reports as per HPI Hematologic/Lymphatic: Hematologic/Lymphatic: Reports no additional hematologic/lymphatic complaints Allergic/Immunologic: Allergic/Immunologic: Reports no additional allergic/immunologic complaints [facility] Past Medical History Medical History Dysuria NAYELI (generalized anxiety disorder) Vitamin D deficiency Tremor of right hand Psychophysiological insomnia Postmenopausal Other fatigue Mixed hyperlipidemia Malaise and fatigue Lipid screening Leg pain, right Headache above the eye region Essential (primary) hypertension Environmental allergies Dysesthesia of face Disappearance and of family member Dehydration Atherosclerotic heart disease of [place] coronary artery without angina pectoris Complicated grieving Atrial fibrillation, controlled Anemia due to blood loss Muscle spasm AOM (acute otitis media) Chronic kidney disease, stage 3b Pneumonia, unspecified organism NAYELI (generalized anxiety disorder) CAD (coronary artery disease) Shingles History of blood transfusion Arthritis Shoulder fracture Kidney stone GERD (gastroesophageal reflux disease) Myocardial infarction HLD (hyperlipidemia) HTN (hypertension) Surgical History Surgical History S/P CABG x 3 H/O: hysterectomy H/O cardiac catheterization S/P CABG x 3 Family History Family History Mother Hypertension Sibling Patient's sister is in good health Social History Social History (Updated 04/14/25 @ 23:05 by Meredith Cespedes APRN) Social History: She is of . she has 3 sons. She is retired from teaching. Her son Jey is her poa. code status : full code Smoking status: Never smoker Second hand tobacco smoke exposure: No Alcohol intake: current Drinks per week: 1 Substance use: never Substance use type: does not use Do You Feel Safe in your Home?: Yes Lack of Transportation: No Lack of Food: Never True Current Housing: I Have Housing Concerned About Future Housing: No Difficulty Paying Gas/Electric Bills: No Difficulty Paying for Meds: No Currently Unemployed: No Education: Bachelor's Degree Difficulty w/ Childcare or Family Care: No Living arrangements: with family Occupation/Education: retired Gender identity (if verbalized by the patient): Female Sexual Orientation (if Verbalized by the Patient): Straight or Heterosexual Spiritual care concerns: No Meds Home Medications and Allergies Home Medications ?Medication ?Instructions ?Recorded ?Confirmed ?Type aspirin 81 mg chewable tablet 1 tablet PO DAILY 07/09/19 04/14/25 History lorazepam 0.5 mg tablet 0.5 mg PO QHS PRN anxiety #30 tabs 04/15/24 04/14/25 Rx clopidogrel 75 mg tablet (Plavix) 75 mg PO DAILY #30 tabs 11/05/24 04/14/25 Rx carvedilol 3.125 mg tablet See Rx Instructions .Route 12/17/24 04/14/25 Rx .COMPLEX #270 tabs hydralazine 25 mg tablet 25 mg PO Q12H 01/05/25 04/14/25 History atorvastatin 20 mg tablet See Rx Instructions .Route 01/25/25 04/14/25 Rx .COMPLEX #90 tabs ropinirole 2 mg tablet 2 mg PO QHS 02/02/25 04/14/25 History irbesartan 150 mg tablet 150 mg PO DAILY #90 tabs 04/06/25 04/14/25 Rx Allergies Allergy/AdvReac Type Severity Reaction Status Date / Time No Known Allergies Allergy Unknown Verified 04/14/25 21:36 Vital Signs Vital Signs - 24 hr 04/14/25 12:34 04/14/25 13:07 04/14/25 15:01 Temperature 98 F Pulse Rate 95 84 89 Respiratory Rate 18 20 22 H Blood Pressure 222/94 H 221/88 H 213/86 H Pulse Oximetry 97 97 98 Oxygen Delivery Room Air 04/14/25 15:16 04/14/25 15:31 04/14/25 17:46 Temperature Pulse Rate 89 94 90 Respiratory Rate 27 H 18 17 Blood Pressure 219/88 H 232/87 H 179/93 H Pulse Oximetry 96 Oxygen Delivery 04/14/25 19:38 Temperature Pulse Rate 82 Respiratory Rate 21 H Blood Pressure 163/73 H Pulse Oximetry 94 Oxygen Delivery Exam Const: General: cooperative, healthy appearing, comfortable, no acute distress, well developed, awake, Physically active, average body habitus and well nourished Nutritional Appearance: average body habitus and well nourished Orientation/consciousness: oriented to person, oriented to place, oriented to time and patient oriented x3 Limitations: no limitations HENMT: Head: normal to inspection, No palpable skull fracture present, normocephalic, atraumatic and abrasion Ears: hearing grossly normal bilaterally and external ears normal Eyes: General: appearance normal, both eyes and all related structures Alignment and Position: alignment normal Periorbital: periorbital findings normal Eyelids: eyelids normal Neck: Neck: normal visual inspection, full ROM and no lymphadenopathy Chest: Chest palpation & inspection: normal inspection of the chest Resp: Effort & Inspection: normal respiratory effort Auscultation: clear to auscultation bilaterally Percussion: percussion normal Cardio: Palpation: normal PMI Rate: regular rate Rhythm: regular rhythm Heart sounds: S1 normal heart sound present and S2 normal heart sound present Peripheral pulses: Peripheral pulses 2+ throughout GI: Inspection: normal to inspection GI Palp: Yes abdominal tenderness (Mild tenderness to left lower quadrant.) Percussion: Yes normal to percussion Auscultation: normal bowel sounds Rectal Exam: deferred Skin: General skin exam: normal color Lesions: no lesions Rashes: no rashes Trauma: no lacerations or abrasions Wounds: no wounds Hair: normal Nails: normal Neuro: General: oriented to person, oriented to place, oriented to time and patient oriented x3 Cranial nerves: Yes Normal hearing present Cognition (Neuro): normal cognition Speech: normal speech Extrem: General: normal to inspection Right upper extremity: normal to inspection and shoulder/upper arm Left upper extremity: normal to inspection and shoulder/upper arm Right lower extremity: normal to inspection Left lower extremity: normal to inspection Psych: Appearance: grossly normal Mental Status: mental status grossly normal Speech and movement: Normal speech and movement present Affect: normal affect Attitude: cooperative Thought process: Normal thought process present Thought content: Yes Normal thought content present Insight: Good insight present (Psych) Judgement: Good judgement present (Psych) H&P: Results Labs Labs: Short CBC 04/14/25 Range/Units 12:51 WBC 8.4 (4.5-10.0) K/mm3 Hgb 12.2 (12.0-15.0) g/dL Hct 36.7 L (37.0-47.0) % Plt Count 252 (150-375) k/mm3 BMP 04/14/25 12:51 Sodium 136 L Potassium 4.3 Chloride 106 Carbon Dioxide 23 BUN 20 H Creatinine 1.32 H Glucose 112 H Calcium 9.4 Cardiac Enzymes 04/14/25 04/14/25 04/14/25 Range/Units 12:51 16:29 18:41 Troponin I < 0.012 < 0.012 < 0.012 (0.000-0.034) ng/mL Liver Function 04/14/25 Range/Units 12:51 Total Bilirubin 0.8 (0.2-1.3) mg/dL AST 31 (14-36) U/L ALT 19 (6-35) U/L Alkaline Phosphatase 64 (38-126) U/L Albumin 4.4 (3.5-5.1) g/dL Imaging CT scan - abdomen: Radiologist's impression: Impressions Chest X-Ray 04/14/25 13:53 IMPRESSION: 1. No acute pulmonary findings. 2. Cardiomegaly, atherosclerotic aorta and postoperative changes of the heart. Head CT 04/14/25 15:58 Impression: 1.No acute intracranial abnormality. Abdomen/Pelvis CT 04/14/25 16:53 IMPRESSION: 1. Subtle changes in the left lower quadrant associated with the proximal sigmoid bowel diverticuli suspicious for very mild or early diverticulitis. No abscess or perforation. 2. Also in the left lower quadrant, a 4.8 x 4.8 x 2.4 cm mildly complex appearing cystic mass in the left adnexal region. Correlate with follow-up pelvic ultrasound. 3. Several chronic appearing findings as above. Pelvis Ultrasound 04/14/25 18:01 IMPRESSION: 1. Limited ultrasound examination of the lower abdomen and pelvis shows evidence thin-walled bilocular cystic lesion, 4.6 x 2.5 cm in size, consistent with the CT findings. Assessment and Plan Assessment and plan (1) Diverticulitis: Code(s): K57.92 - Diverticulitis of intestine, part unspecified, without perforation or abscess without bleeding Status: Acute Assessment and Plan: -the patient was started on Rocephin and Flagyl -Abdomen/Pelvis CT 04/14/25 16:53 IMPRESSION: 1. Subtle changes in the left lower quadrant associated with the proximal sigmoid bowel diverticuli suspicious for very mild or early diverticulitis. No abscess or perforation. 2. Also in the left lower quadrant, a 4.8 x 4.8 x 2.4 cm mildly complex appearing cystic mass in the left adnexal region. Correlate with follow-up pelvic ultrasound. 3. Several chronic appearing findings as above. -the patient only has some mild discomfort. -the patient was placed on clear liquids and may advance diet as tolerated. -she does not appear septic. She has no fever or any white count. Blood pressure is elevated. (2) HTN (hypertension): Qualifiers: Hypertension type: unspecified Qualified Code(s): I10 - Essential (primary) hypertension Code(s): I10 - Essential (primary) hypertension Status: Acute Assessment and Plan: -continue with irbesartan -continue with Coreg -p.r.n. hydralazine with parameters. -her blood pressures have been high all day. Her current blood pressure is 186/58. This could be related to her discomfort. (3) NAYELI (generalized anxiety disorder): Code(s): F41.1 - Generalized anxiety disorder Status: Acute Assessment and Plan: -continue with her home dose of lorazepam. (4) Carotid arterial disease: Qualifiers: Carotid artery disease type: unspecified Laterality: unspecified laterality Qualified Code(s): I77.9 - Disorder of arteries and arterioles, unspecified Code(s): I77.9 - Disorder of arteries and arterioles, unspecified Status: Acute Assessment and Plan: -the patient stated she recently found out that she has 80% occlusion in the right carotid artery. She is to follow up with the vascular surgeon in the near future. -continue with Plavix (5) HLD (hyperlipidemia): Code(s): E78.5 - Hyperlipidemia, unspecified Status: Acute Assessment and Plan: -continue with atorvastatin (6) Tremor: Code(s): R25.1 - Tremor, unspecified Status: Acute Assessment and Plan: -the patient has familial hand tremors. -continue with ropinirole (7) Ovarian cystic mass: Code(s): N83.209 - Unspecified ovarian cyst, unspecified side Status: Acute Assessment and Plan: Abdomen/Pelvis CT 04/14/25 16:53 IMPRESSION: 1. Subtle changes in the left lower quadrant associated with the proximal sigmoid bowel diverticuli suspicious for very mild or early diverticulitis. No abscess or perforation. 2. Also in the left lower quadrant, a 4.8 x 4.8 x 2.4 cm mildly complex appearing cystic mass in the left adnexal region. Correlate with follow-up pelvic ultrasound. 3. Several chronic appearing findings as above. Pelvis Ultrasound 04/14/25 18:01 IMPRESSION: 1. Limited ultrasound examination of the lower abdomen and pelvis shows evidence thin-walled bilocular cystic lesion, 4.6 x 2.5 cm in size, consistent with the CT findings. OBGYN has been consulted. (8) Chronic kidney disease, stage 3b: Code(s): N18.32 - Chronic kidney disease, stage 3b Status: Acute Assessment and Plan: Current BUN is 20 and creatinine is 1.32 with a GFR 38. All of these are above her baseline. Quality VTE Prophylaxis VTE prophylaxis: mechanical ordered
[2025-04-14] MEDS: metroNIDAZOLE 500 MG/ISO 100ML 500 MG/100 ML BAG 100 MG IVPB (20:12)
--- NOTE | 2025-04-14 20:44 | WPCEDHO ---
ED Hand Off Checklist All vitals saved: YES IV Site documented: YES All med administrations documented: YES Triage Note Triage Note Patient to the ED with 04/14/25 13:05 complaints of blood pressure spiking sometimes. patient complains of fatigue. Patient does take BP medication this RN agrees with triage assessment Allergies No Known Allergies Allergy (Unknown, Verified 04/14/25 13:07) Family History (Last Reviewed 04/14/25 @ 20:06 by Meredith Cespedes, SARANYA) Mother Hypertension Sibling Patient's sister is in good health Administered/Completed Medications Discontinued Medications Acetaminophen (Acetaminophen 500 Mg Tablet) 1,000 mg PO ONCE STA Stop: 04/14/25 16:44 Last Admin: 04/14/25 17:20 Dose: 1,000 mg Documented By: YULIA Aspirin (Aspirin 81 Mg Chewable Tablet) 324 mg PO ONCE STA Stop: 04/14/25 12:37 Last Admin: 04/14/25 13:05 Dose: Not Given Documented By: LISA Non-Admin Reason: No Dose Required Hydralazine HCl (Hydralazine Hcl 20 Mg/Ml Vial) 10 mg IV PUSH ONCE ONE Stop: 04/14/25 15:33 Last Admin: 04/14/25 15:36 Dose: 10 mg Documented By: LISA Hydralazine HCl (Hydralazine Hcl 25 Mg Tablet) 25 mg PO ONCE STA Stop: 04/14/25 16:25 Last Admin: 04/14/25 16:36 Dose: Not Given Documented By: YULIA Non-Admin Reason: Patient Refuses Hydralazine HCl (Hydralazine Hcl 25 Mg Tablet) 25 mg PO ONCE STA Stop: 04/14/25 17:25 Last Admin: 04/14/25 17:25 Dose: 25 mg Documented By: YULIA Ceftriaxone Sodium 1 gm/ (Sodium Chloride) 50 mls @ 100 mls/hr IVPB ONCE STA Stop: 04/14/25 19:11 Last Infusion: 04/14/25 20:10 Dose: Infused Documented By: Admin: 04/14/25 19:29 Dose: 100 mls/hr Documented By: TRISH Metronidazole (Flagyl 500 Mg/Iso Soln 100 Ml) 500 mg in 100 mls @ 100 mls/hr IVPB ONCE STA Stop: 04/14/25 19:41 Last Admin: 04/14/25 20:12 Dose: 100 mls/hr Documented By: TRISH Morphine Sulfate (Morphine Sulfate (*Crx) 4 Mg/Ml Inj) 2 mg IV PUSH ONCE ONE Stop: 04/14/25 16:25 Last Admin: 04/14/25 16:37 Dose: Not Given Documented By: YULIA Non-Admin Reason: Patient Refuses Notes 04/14/25 16:44 Nurse Note by Anca Bear. patient stated that the Morphine was too much for her / PPS ZAFAR and less than that PPS abd pain; ERP Alverto notified and as per patient request Tylenol ordered. Patient currently in scan. Initialized on 04/14/25 16:44 - END OF NOTE 04/14/25 14:48 Nurse Note by Anca Bear. patient concerned that she has been roomed and not seen ERP, this RN explained that we will need to repeat blood work and EKG in approximately an hour to ensure that her cardiac enzymes are not elevated. patient verbalized understanding. patient c/o ZAFAR, lights dimmed for comfort. Initialized on 04/14/25 14:48 - END OF NOTE Interventions/Assessments General Assessment Start: 04/14/25 12:34 Freq: Status: Active Protocol: Document 04/14/25 13:06 KNW (Rec: 04/14/25 13:06 KNW [id number]) GA Neurological Assessment Level of Alert,Awake Consciousness Arousable to Verbal Orientation Oriented to Person,Oriented to Place,Oriented to Time Behavior Appropriate,Cooperative Patient Able to Comprehend Comprehension Memory Description Intact Ability to Maintain Normal Balance Facial Symmetry Symmetrical Speech Pattern Clear IV / Saline Lock, Insert Start: 04/14/25 12:36 Freq: STAT Status: Active Protocol: Document 04/14/25 12:43 ELB (Rec: 04/14/25 12:46 ELB [id number]) IV Assessment Peripheral Access Right Forearm IV Catheter Access Initiated IV Insertion Date 04/14/25 IV Insertion Time 12:46 Catheter Gauge 20 IV Insertion 1 Attempts Ultrasound Used for No Placement IV Site Assessment WNL IV Care and WNL Maintenance Last Vital Signs Temperature 98 F 04/14/25 12:34 Pulse Rate 79 04/14/25 20:43 Respiratory Rate 20 04/14/25 20:43 Pulse Oximetry 94 04/14/25 20:43 Blood Pressure 189/72 H 04/14/25 20:43 Blood Pressure Mean 111 04/14/25 20:43 Blood Pressure Position Supine 04/14/25 20:43 Oxygen Delivery Room Air 04/14/25 12:34 Weight 57 kg 04/14/25 13:05 Last Result - Abnormals Only RBC 3.51 M/mm3 (4.2-5.4) L 04/14/25 12:51 Hct 36.7 % (37.0-47.0) L 04/14/25 12:51 MCV 104.6 fl (80-100) H 04/14/25 12:51 MCH 34.8 pg (26-34) H 04/14/25 12:51 [place] % (Auto) 12.6 % (2.6-8.5) H 04/14/25 12:51 [place] # (Auto) 1.1 K/mm3 (0.1-0.6) H 04/14/25 12:51 Sodium 136 mmol/L (137-145) L 04/14/25 12:51 BUN 20 mg/dL (7-17) H 04/14/25 12:51 Creatinine 1.32 mg/dL (0.7-1.0) H 04/14/25 12:51 Estimated GFR 38 (59-) L 04/14/25 12:51 Glucose 112 mg/dL (65-110) H 04/14/25 12:51 Most Recent Suicide Severity Rating Suicide Severity Rating NO RISK INDICATED 04/14/25 13:05
--- NOTE | 2025-04-14 21:34 | ADMIMU ---
This patient, Geraldine Anthony, was admitted to IMU status, and placed in IMU Room 205-01 at 2117. Patient/family oriented to hospital policies and general routines including ID bracelet, bed and alarms, visiting hours, pain management, procedures, bathroom and other care routines, personal items, smoking policy, room service/diet, and visiting hours. Valuables list has been completed. Information on how to activate the Rapid Response Team has been discussed. Patient/Family are encouraged to report perceived risks to care and to ask questions if they do not understand what they are told or what they should do.
[2025-04-14] MEDS: ATORVASTATIN 20 MG TABLET BY MOUTH (23:44)
[2025-04-15] VITALS (18 sets, daily range): BP systolic 117–158; BP diastolic 44–92; PULSE 73–112; RESP 14–24; TEMP 36.4–36.9; O2SAT 91–96
[2025-04-15 04:11] LABS: Hematocrit 34.1 % (37.0-47.0); Hemoglobin 11.2 g/dL (12.0-15.0); Mean Corpuscular HGB Conc 32.8 g/dl (32-36); Mean Corpuscular Hemoglobin 34.5 pg (26-34); Mean Corpuscular Volume 104.9 fl (80-100); Platelet Count Result 235 k/mm3 (150-375); Red Blood Count 3.25 M/mm3 (4.2-5.4); White Blood Count 7.3 K/mm3 (4.5-10.0)
[2025-04-15 04:35] LABS: Anion Gap 6 mmol/L (4-12); Blood Urea Nitrogen 22 mg/dL (7-17); Calcium 8.8 mg/dL (8.4-10.2); Carbon Dioxide 23 mmol/L (22-30); Chloride 107 mmol/L (98-107); Estimated CRCL calculation 24 ml/min; Estimated Glomerular Filt Rate 37; Glucose 126 mg/dL (65-110); Potassium 3.8 mmol/L (3.4-5.0); Sodium 136 mmol/L (137-145)
[2025-04-15] MEDS: metroNIDAZOLE 500 MG/ISO 100ML 500 MG/100 ML BAG 100 MG IVPB ×3 (05:40→22:06)
[2025-04-15] MEDS: CLOPIDOGREL BISULFATE 75 MG TABLET PO (09:20)
[2025-04-15] MEDS: IRBESARTAN 150 MG TABLET PO (09:20)
[2025-04-15] MEDS: ASPIRIN 81 MG CHEWABLE TABLET PO (09:20)
[2025-04-15] MEDS: ACETAMINOPHEN ELIXIR 325 MG/10.15 ML UDC 650 MG PO ×2 (11:01→20:34)
--- NOTE | 2025-04-15 16:25 | P.PNIM_ITS ---
Progress Note: A&P Assessment and Plan (1) Diverticulitis: Code(s): K57.92 - Diverticulitis of intestine, part unspecified, without perforation or abscess without bleeding Status: Acute Assessment and Plan: Patient presents with elevated blood pressure and also found to have left lower quadrant pain. CT abdomen pelvis showed subtle changes in the on the left lower quadrant associated with the proximal sigmoid bowel suspicious for early diverticulitis. She was started on Rocephin and Flagyl. Abdominal pain is better. Continue IV antibiotics. Change to oral antibiotics tomorrow. Advance diet. (2) HTN (hypertension): Qualifiers: Hypertension type: unspecified Qualified Code(s): I10 - Essential (primary) hypertension Code(s): I10 - Essential (primary) hypertension Status: Acute Assessment and Plan: Patient presented to the emergency room because of elevated blood pressure. Here her blood pressure was 222/94. BP does run in the 200 range at times at home. She presented to the emergency room this time because she felt ill. Elevated blood pressure may be related to the diverticulitis and pain. Home medications were resumed and blood pressure better controlled now. p.r.n. hydralazine with parameters. (3) NAYELI (generalized anxiety disorder): Code(s): F41.1 - Generalized anxiety disorder Status: Acute Assessment and Plan: Mood stable. Continue with her home dose of lorazepam. (4) Carotid arterial disease: Qualifiers: Carotid artery disease type: unspecified Laterality: unspecified laterality Qualified Code(s): I77.9 - Disorder of arteries and arterioles, unspecified Code(s): I77.9 - Disorder of arteries and arterioles, unspecified Status: Acute Assessment and Plan: Patient has 80% stenosis in the right carotid artery. She is to follow up with the vascular surgeon in the near future. Continue with Plavix and Lipitor (5) HLD (hyperlipidemia): Code(s): E78.5 - Hyperlipidemia, unspecified Status: Acute Assessment and Plan: LFTs normal. Continue with atorvastatin (6) Tremor: Code(s): R25.1 - Tremor, unspecified Status: Acute Assessment and Plan: Patient has familial hand tremors. Continue with ropinirole (7) Ovarian cystic mass: Code(s): N83.209 - Unspecified ovarian cyst, unspecified side Status: Acute Assessment and Plan: CT showing a left lower quadrant, a 4.8 x 4.8 x 2.4 cm mildly complex appearing cystic mass in the left adnexal region. Pelvic ultrasound was limited but showed evidence thin-walled bilocular cystic lesion, 4.6 x 2.5 cm in size, consistent with the CT findings. OBGYN consulted. (8) Chronic kidney disease, stage 3b: Code(s): N18.32 - Chronic kidney disease, stage 3b Status: Acute Assessment and Plan: Baseline Cr 1.4-1.8 range. Creatinine was 1.32 on admission. Sable on repeat Plan DVT prophyalxis - SCDs Code status - full Subjective Date/time seen: 04/15/25 16:25 Interval history: 85yo female with HTN here for elevated BP and left lower quadrant pain. Slept okay. No nausea or vomiting. Small loose stool earlier today. She has not been on antibiotics prior to admission. Abdominal pain is better. Exam Narrative: AF 97.6 140/66 75 24 95% ra Gen - NARD Chest - CTA bilaterally, nml RR CV - RRR S1/S2 with 2/6 systolic murmur LSB. Telemetry showing no significant dysrhythmias Abd - Soft, nondistended. Mild left lower quadrant pain. No guarding. Ext - No pedal edema Neuro - Alert and oriented. Nonfocal exam. Psych - Nml mood and affect Skin - Warm and dry Objective Data Vital Signs Vital Signs: Vital Signs - 24 hr 04/14/25 17:46 04/14/25 19:38 04/14/25 20:43 Temperature Pulse Rate 90 82 79 Respiratory Rate 17 21 H 20 Blood Pressure 179/93 H 163/73 H 189/72 H Pulse Oximetry 96 94 94 Oxygen Delivery 04/14/25 21:33 04/14/25 22:00 04/14/25 23:44 Temperature 97.7 F Pulse Rate 85 86 102 H Respiratory Rate 16 Blood Pressure 186/58 H Pulse Oximetry 93 Oxygen Delivery 04/15/25 00:00 04/15/25 00:00 04/15/25 02:00 Temperature 98.4 F Pulse Rate 95 84 83 Respiratory Rate 14 Blood Pressure 142/46 H Pulse Oximetry 94 Oxygen Delivery 04/15/25 04:00 04/15/25 04:00 04/15/25 06:00 Temperature 98.3 F Pulse Rate 78 74 76 Respiratory Rate 15 Blood Pressure 117/44 L Pulse Oximetry 92 Oxygen Delivery 04/15/25 07:31 04/15/25 08:00 04/15/25 08:29 Temperature 97.6 F Pulse Rate 82 94 Respiratory Rate 20 Blood Pressure 128/92 H Pulse Oximetry 96 91 Oxygen Delivery Room Air 04/15/25 09:20 04/15/25 10:00 04/15/25 11:36 Temperature 97.6 F Pulse Rate 85 78 84 Respiratory Rate 24 H Blood Pressure 140/66 Pulse Oximetry 95 Oxygen Delivery 04/15/25 12:00 04/15/25 14:00 Temperature Pulse Rate 82 78 Respiratory Rate Blood Pressure Pulse Oximetry Oxygen Delivery Intake/Output Intake/Output: Intake & Output 04/12/25 04/13/25 04/14/25 04/15/25 23:59 23:59 23:59 23:59 Intake Total 150 460 Balance 150 460 Meds/Results Medications: Active Medications Generic Name Dose Route Start Last Admin Trade Name Freq PRN Reason Stop Dose Admin Acetaminophen 650 mg 04/15/25 10:52 04/15/25 11:01 Acetaminophen Elixir 325 Mg/10.15 Ml Udc PO 650 mg Q6H PRN Administration Mild Pain (1-3) or Fever Aspirin 81 mg 04/15/25 09:00 04/15/25 09:20 Aspirin 81 Mg Chewable Tablet PO 81 mg DAILY ANGELI Administration Atorvastatin Calcium 20 mg 04/15/25 21:00 Atorvastatin 20 Mg Tablet BY MOUTH HS [facility] Carvedilol 3.125 mg 04/15/25 09:00 04/15/25 09:20 Carvedilol 3.125 Mg Tablet BY MOUTH 3.125 mg QAM ANGELI Administration Carvedilol 6.25 mg 04/14/25 23:20 04/14/25 23:44 Carvedilol 6.25 Mg Tablet BY MOUTH 6.25 mg HS ANGELI Administration Clopidogrel Bisulfate 75 mg 04/15/25 09:00 04/15/25 09:20 Clopidogrel Bisulfate 75 Mg Tablet PO 75 mg DAILY ANGELI Administration Hydralazine HCl 10 mg 04/14/25 23:15 Hydralazine Hcl 20 Mg/Ml Vial IV PUSH Q8H PRN Blood Pressure - High Ceftriaxone Sodium 1 gm/ 50 mls @ 100 mls/hr 04/15/25 18:00 Sodium Chloride IVPB Q24H ANGELI Metronidazole 500 mg in 100 mls @ 100 mls/hr 04/15/25 06:00 04/15/25 13:30 Flagyl 500 Mg/Iso Soln 100 Ml IVPB 100 mls/hr Q8H ANGELI Administration Irbesartan 150 mg 04/15/25 09:00 04/15/25 09:20 Irbesartan 150 Mg Tablet PO 150 mg DAILY ANGELI Administration Lorazepam 0.5 mg 04/14/25 23:08 Lorazepam (*Crx) 0.5 Mg Tablet PO QHS PRN Anxiety Ropinirole HCl 2 mg 04/14/25 23:20 04/14/25 23:44 Ropinirole Hcl 1 Mg Tablet PO 2 mg QHS ANGELI Administration Radiology Results: ITS Impressions Chest X-Ray 04/14/25 13:53 IMPRESSION: 1. No acute pulmonary findings. 2. Cardiomegaly, atherosclerotic aorta and postoperative changes of the heart. Head CT 04/14/25 15:58 Impression: 1.No acute intracranial abnormality. Abdomen/Pelvis CT 04/14/25 16:53 IMPRESSION: 1. Subtle changes in the left lower quadrant associated with the proximal sigmoid bowel diverticuli suspicious for very mild or early diverticulitis. No abscess or perforation. 2. Also in the left lower quadrant, a 4.8 x 4.8 x 2.4 cm mildly complex appearing cystic mass in the left adnexal region. Correlate with follow-up pelvic ultrasound. 3. Several chronic appearing findings as above. Pelvis Ultrasound 04/14/25 18:01 IMPRESSION: 1. Limited ultrasound examination of the lower abdomen and pelvis shows evidence thin-walled bilocular cystic lesion, 4.6 x 2.5 cm in size, consistent with the CT findings. Labs Labs: Laboratory Results - last 24 hr 04/14/25 04/14/25 04/15/25 16:29 18:41 03:13 WBC 7.3 RBC 3.25 L Hgb 11.2 L Hct 34.1 L MCV 104.9 H MCH 34.5 H MCHC 32.8 RDW 12.8 Plt Count 235 MPV 10.0 Sodium 136 L Potassium 3.8 Chloride 107 Carbon Dioxide 23 Anion Gap 6 BUN 22 H Creatinine 1.35 H Estim Creat Clear Calc 24 Estimated GFR 37 L Glucose 126 H Calcium 8.8 Troponin I < 0.012 < 0.012
[2025-04-15] MEDS: cefTRIAXone 1 GM in SODIUM CHLORIDE 0.9% IV 50 ML 100 ML IVPB (17:50)
[2025-04-15] MEDS: ATORVASTATIN 20 MG TABLET BY MOUTH (20:28)
[2025-04-15 21:09] LABS: Carcinoembryonic Antigen 1.8 ng/mL (0.0-3.0)
[2025-04-16] VITALS: BP 88/39; PULSE 73; RESP 18; TEMP 36.7; O2SAT 94
--- NOTE | 2025-04-16 00:13 | PC.NURSE ---
Provided report to Kaye via telephone. Patient being transferred to [facility]
--- NOTE | 2025-04-16 00:34 | PC.NURSE ---
Pt tranferred from IMU Room 205-1 to 3 Med Surg Room 319-1 @ 0018 via bed. All pt's belongings and appropriate documentation brought up with pt. Report received from [facility] Marcial in IMU.
[2025-04-16 00:35] VITALS: BP 110/45; PULSE 74; RESP 16; TEMP 36.9; O2SAT 93
[2025-04-16 04:00] VITALS: BP 147/72; PULSE 78; RESP 16; TEMP 37.1; O2SAT 98
[2025-04-16] MEDS: metroNIDAZOLE 500 MG/ISO 100ML 500 MG/100 ML BAG 100 MG IVPB (05:50)
[2025-04-16 06:02] LABS: Hematocrit 33.3 % (37.0-47.0); Hemoglobin 10.9 g/dL (12.0-15.0); Mean Corpuscular HGB Conc 32.7 g/dl (32-36); Mean Corpuscular Hemoglobin 34.5 pg (26-34); Mean Corpuscular Volume 105.4 fl (80-100); Platelet Count Result 219 k/mm3 (150-375); Red Blood Count 3.16 M/mm3 (4.2-5.4); White Blood Count 5.9 K/mm3 (4.5-10.0)
[2025-04-16 06:21] LABS: Anion Gap 8 mmol/L (4-12); Blood Urea Nitrogen 18 mg/dL (7-17); Calcium 8.7 mg/dL (8.4-10.2); Carbon Dioxide 21 mmol/L (22-30); Chloride 107 mmol/L (98-107); Estimated CRCL calculation 23 ml/min; Estimated Glomerular Filt Rate 35; Glucose 98 mg/dL (65-110); Potassium 3.7 mmol/L (3.4-5.0); Sodium 136 mmol/L (137-145)
[2025-04-16 08:35] VITALS: BP 143/67; PULSE 94; RESP 18; TEMP 36.4; O2SAT 95
[2025-04-16 08:44] VITALS: PULSE 84
[2025-04-16] MEDS: IRBESARTAN 150 MG TABLET PO (08:45)
[2025-04-16] MEDS: ACETAMINOPHEN ELIXIR 325 MG/10.15 ML UDC 650 MG PO (08:45)
[2025-04-16] MEDS: CLOPIDOGREL BISULFATE 75 MG TABLET PO (08:45)
[2025-04-16] MEDS: ASPIRIN 81 MG CHEWABLE TABLET PO (08:45)
--- NOTE | 2025-04-16 08:53 | WPDCN ---
Assessment and Plan Assessment and plan (1) Ovarian cystic mass: Code(s): N83.209 - Unspecified ovarian cyst, unspecified side Status: Acute Assessment and Plan: 1. Tumor markers are added to her labs 2. Will follow up on these markers and let the patient know results 3. If markers are negative we will likely follow-up with serial ultrasounds to be sure that this mass is stable 4. If markers positive will refer to oncology for further potential management The above was discussed at length with the patient who states good understanding and will await our phone call regarding these results and further plan of care. HPI Data of Consult Date/Time: 04/16/25 08:53 Requesting Physician: Yuval Almonte MD Primary Care Provider: Niall Figueredo MD Consult Narrative Narrative: Geraldine Anthony is a 85 year old female admitted with hypertensive crisis as well as diverticulitis episode. During this evaluation was also found to have a 4-5 cm left adnexal mass. She was having discomfort on her left side originally, with IV antibiotics for her diverticulitis this pain has resolved so therefore is more likely to that than her cyst. She states has been over 20 years since she has had an exam, and no real issues from a gynecologic perspective in that period of time. [facility] Past Medical History Medical History Dysuria NAYELI (generalized anxiety disorder) Vitamin D deficiency Tremor of right hand Psychophysiological insomnia Postmenopausal Other fatigue Mixed hyperlipidemia Malaise and fatigue Lipid screening Leg pain, right Headache above the eye region Essential (primary) hypertension Environmental allergies Dysesthesia of face Disappearance and of family member Dehydration Atherosclerotic heart disease of resighini coronary artery without angina pectoris Complicated grieving Atrial fibrillation, controlled Anemia due to blood loss Muscle spasm AOM (acute otitis media) Chronic kidney disease, stage 3b Pneumonia, unspecified organism NAYELI (generalized anxiety disorder) CAD (coronary artery disease) Shingles History of blood transfusion Arthritis Shoulder fracture Kidney stone GERD (gastroesophageal reflux disease) Myocardial infarction HLD (hyperlipidemia) HTN (hypertension) Surgical History Surgical History S/P CABG x 3 H/O: hysterectomy H/O cardiac catheterization S/P CABG x 3 Family History Family History Mother Hypertension Sibling Patient's sister is in good health Social History Social History (Updated 04/14/25 @ 23:05 by Meredith Cespedes APRN) Social History: She is of . she has 3 sons. She is retired from teaching. Her son Jey is her poa. code status : full code Smoking status: Never smoker Second hand tobacco smoke exposure: No Alcohol intake: current Drinks per week: 1 Substance use: never Substance use type: does not use Do You Feel Safe in your Home?: Yes Lack of Transportation: No Lack of Food: Never True Current Housing: I Have Housing Concerned About Future Housing: No Difficulty Paying Gas/Electric Bills: No Difficulty Paying for Meds: No Currently Unemployed: No Education: Bachelor's Degree Difficulty w/ Childcare or Family Care: No Living arrangements: with family Occupation/Education: retired Gender identity (if verbalized by the patient): Female Sexual Orientation (if Verbalized by the Patient): Straight or Heterosexual Spiritual care concerns: No Meds Home Medications and Allergies Home Medications ?Medication ?Instructions ?Recorded ?Confirmed ?Type aspirin 81 mg chewable tablet 1 tablet PO DAILY 07/09/19 04/14/25 History lorazepam 0.5 mg tablet 0.5 mg PO QHS PRN anxiety #30 tabs 04/15/24 04/14/25 Rx clopidogrel 75 mg tablet (Plavix) 75 mg PO DAILY #30 tabs 11/05/24 04/14/25 Rx carvedilol 3.125 mg tablet See Rx Instructions .Route 12/17/24 04/14/25 Rx .COMPLEX #270 tabs hydralazine 25 mg tablet 25 mg PO Q12H 01/05/25 04/14/25 History atorvastatin 20 mg tablet See Rx Instructions .Route 01/25/25 04/14/25 Rx .COMPLEX #90 tabs ropinirole 2 mg tablet 2 mg PO QHS 02/02/25 04/14/25 History irbesartan 150 mg tablet 150 mg PO DAILY #90 tabs 04/06/25 04/14/25 Rx Allergies Allergy/AdvReac Type Severity Reaction Status Date / Time No Known Allergies Allergy Unknown Verified 04/14/25 21:36 Vital Signs Vital Signs - 24 hr 04/15/25 09:20 04/15/25 10:00 04/15/25 11:36 Temperature 97.6 F Pulse Rate 85 78 84 Respiratory Rate 24 H Blood Pressure 140/66 Pulse Oximetry 95 Oxygen Delivery 04/15/25 12:00 04/15/25 14:00 04/15/25 15:54 Temperature 98.2 F Pulse Rate 82 78 73 Respiratory Rate 20 Blood Pressure 158/76 H Pulse Oximetry 93 Oxygen Delivery 04/15/25 16:00 04/15/25 18:00 04/15/25 20:00 Temperature 97.6 F Pulse Rate 83 112 H 74 Respiratory Rate 18 Blood Pressure 156/61 H Pulse Oximetry 95 Oxygen Delivery 04/15/25 20:00 04/15/25 20:25 04/15/25 20:27 Temperature Pulse Rate 85 73 Respiratory Rate Blood Pressure Pulse Oximetry Oxygen Delivery Room Air 04/15/25 22:00 04/16/25 00:00 04/16/25 00:00 Temperature 98.0 F Pulse Rate 80 73 Respiratory Rate 18 Blood Pressure 88/39 L Pulse Oximetry 94 Oxygen Delivery Room Air 04/16/25 00:35 04/16/25 04:00 04/16/25 08:35 Temperature 98.5 F 98.7 F 97.6 F Pulse Rate 74 78 94 Respiratory Rate 16 16 18 Blood Pressure 110/45 L 147/72 H 143/67 H Pulse Oximetry 93 98 95 Oxygen Delivery 04/16/25 08:44 Temperature Pulse Rate 84 Respiratory Rate Blood Pressure Pulse Oximetry Oxygen Delivery Results Labs 04/16/25 05:44 04/16/25 05:44 Labs: Short CBC 04/16/25 Range/Units 05:44 WBC 5.9 (4.5-10.0) K/mm3 Hgb 10.9 L (12.0-15.0) g/dL Hct 33.3 L (37.0-47.0) % Plt Count 219 (150-375) k/mm3 BMP 04/16/25 05:44 Sodium 136 L Potassium 3.7 Chloride 107 Carbon Dioxide 21 L BUN 18 H Creatinine 1.41 H Glucose 98 Calcium 8.7
[2025-04-16 09:08] LABS: CA 19-9 7 U/mL (0-35)
--- NOTE | 2025-04-16 12:13 | PM.DS ---
DS: Admitting Diagnosis Discharge Date 04/16/25 Admitting Diagnosis High blood pressure and abd pain DS: Discharge Diagnosis Discharge Diagnosis (1) Diverticulitis: Code(s): K57.92 - Diverticulitis of intestine, part unspecified, without perforation or abscess without bleeding Status: Acute (2) HTN (hypertension): Qualifiers: Hypertension type: unspecified Qualified Code(s): I10 - Essential (primary) hypertension Code(s): I10 - Essential (primary) hypertension Status: Acute (3) NAYELI (generalized anxiety disorder): Code(s): F41.1 - Generalized anxiety disorder Status: Acute (4) Carotid arterial disease: Qualifiers: Carotid artery disease type: unspecified Laterality: unspecified laterality Qualified Code(s): I77.9 - Disorder of arteries and arterioles, unspecified Code(s): I77.9 - Disorder of arteries and arterioles, unspecified Status: Acute (5) HLD (hyperlipidemia): Code(s): E78.5 - Hyperlipidemia, unspecified Status: Acute (6) Tremor: Code(s): R25.1 - Tremor, unspecified Status: Acute (7) Ovarian cystic mass: Code(s): N83.209 - Unspecified ovarian cyst, unspecified side Status: Acute (8) Chronic kidney disease, stage 3b: Code(s): N18.32 - Chronic kidney disease, stage 3b Status: Acute DS: Summary Hospital Course Reason for hospitalization: 85yo female with HTN here for elevated BP and left lower quadrant pain. Please see H&P for detail. Hospital Course: Patient presented with elevated blood pressure and also found to have left lower quadrant pain. CT abdomen pelvis showed subtle changes in the left lower quadrant associated with the proximal sigmoid bowel suspicious for early diverticulitis. She was started on Rocephin and Flagyl. Abdominal pain is better. Last colonoscopy was >10 years ago. Diet advanced and she tolerated this well. Patient presented to the emergency room because of elevated blood pressure. Here her blood pressure was 222/94. Troponin negative x3. BP does run in the 200 range at times at home. She presented to the emergency room this time because she felt ill. Elevated blood pressure may be related to the diverticulitis and pain. Home medications were resumed and blood pressure better controlled now. We did not make any adjustments with her anti-hypertensive medications. Consider non-compliance at home. Patient also with generalized anxiety disorder but mood remained stable here. Patient has 80% stenosis in the right carotid artery. She is to follow up with the vascular surgeon in the near future. We continued her Plavix and Lipitor. Baseline Cr 1.4-1.8 range. Creatinine was 1.32 on admission and remained stable. The CT also showed a left lower quadrant, a 4.8 x 4.8 x 2.4 cm mildly complex appearing cystic mass in the left adnexal region. Pelvic ultrasound was limited but showed evidence thin-walled bilocular cystic lesion, 4.6 x 2.5 cm in size, consistent with the CT findings. OBGYN consulted. CEA, CA19-9 and CA 125 all were normal range. Plan for patient to follow-up with [facility] after discharge. Patient also will follow up with GI to discuss possible colonoscopy in the future. The patient overall did well and was able to be discharged home on 04/16/25. Discharge instructions discussed including medication side effects and all questions answered. Status at Discharge Cognitive/behavioral status at discharge: stable Time Spent with Patient Time attestation: Total time spent providing and/or coordinating discharge services: 35 minutes Time spent: Greater than 30 minutes Exam Narrative: AF 97.6 143/67 84 18 95% ra Gen - NARD Chest - CTA bilaterally, nml RR CV - RRR S1/S2 Abd - Soft, nondistended. Mild left lower quadrant pain with improvement Ext - No pedal edema Psych - Nml mood and affect Skin - Warm and dry DS: Data Data Completed and Pending Labs on day of discharge: Labs from last 24 hours 04/16/25 04/15/25 05:44 20:20 WBC 5.9 RBC 3.16 L Hgb 10.9 L Hct 33.3 L MCV 105.4 H MCH 34.5 H MCHC 32.7 RDW 12.6 Plt Count 219 MPV 9.8 Sodium 136 L Potassium 3.7 Chloride 107 Carbon Dioxide 21 L Anion Gap 8 BUN 18 H Creatinine 1.41 H Estim Creat Clear Calc 23 Estimated GFR 35 L Glucose 98 Calcium 8.7 Carcinoembryonic Ag 1.8 CA 19-9 Antigen 7 CA 125 Antigen 27.0 Discharge Plan Discharge Attending physician on discharge: Lawrence Almonte Consulting providers: Rocky Thomas Discharging Clinician: Lawrence Almonte Anticipated Discharge Date/Time: 04/16/25 12:24 Patient Disposition: Home Activity: as tolerated Diet: heart healthy and low fiber Discharge Instructions: Start to add fiber to your diet when feeling better and after you complete your antibiotics. Try to get 20-30gm of fiber per day. Do something active for 30 minutes or more on most days per week Check blood pressure 1 to 2 times a day. Record and bring into your doctor for review. Call your doctor if your blood pressure is greater than 180/110. Please complete your antibiotic course even if you are starting to feel well. Take precautions to avoid falls. Rise slowly from a lying or sitting position. Pause before standing or walking. Contact your doctor or call 911 and come to the Emergency Room if you have fevers, increasing abdominal pain or other worrisome symptoms. Avoid NSAIDs (ibuprofen, naproxen, Aleve). Tylenol is safe to take. Follow-up with your primary care provider in 1-2 weeks. Please call for appointment. Follow-up with GI doctor in 3-4 weeks to discuss possible colonoscopy. Please call for appointment. Follow-up with [facility] doctor. Please call for an appointment if you have not heard from them. Thank you for using [facility] for your health care needs. Patient Instructions: Antibiotic Form, Clopidogrel (By mouth), Diverticulitis (GEN), Chronic Hypertension (GEN) Patient Language: French Stand Alone Forms: General Discharge Information Follow-up/Referrals: Niall Figueredo MD [Primary Care Provider, Family Practice] - Call for Appointment Aleksey Amador MD [Physician, [employer]ES E[employer]IVENESS MANAGER] - Call for Appointment Bennett Kimbrough MD [Physician, Gastroenterology] - Call for Appointment Discharge Medications: New amoxicillin-pot clavulanate 500-125 mg tablet 1 tablet PO Q12H 5 Days Qty: 10 0RF Continued lorazepam 0.5 mg tablet 0.5 mg PO QHS PRN (Reason: anxiety) Qty: 30 0RF ropinirole 2 mg tablet 2 mg PO QHS aspirin 81 mg Tablet,Chewable 1 tablet PO DAILY clopidogrel [Plavix] 75 mg tablet 75 mg PO DAILY Qty: 30 5RF carvedilol 3.125 mg tablet See Rx Instructions .ROUTE .COMPLEX Qty: 270 1RF Dose Instruction: TAKE 1 TABLET IN THE AM AND 2 TABLETS IN THE PM Rx Instructions: TAKE 1 TABLET IN THE AM AND 2 TABLETS IN THE PM atorvastatin 20 mg tablet See Rx Instructions .ROUTE .COMPLEX Qty: 90 3RF Dose Instruction: TAKE 1 TABLET BY MOUTH EVERY DAY IN THE EVENING Rx Instructions: TAKE 1 TABLET BY MOUTH EVERY DAY IN THE EVENING irbesartan 150 mg tablet 150 mg PO DAILY Qty: 90 1RF Held hydralazine 25 mg tablet 25 mg PO Q12H Hold Instructions: HOLD - discuss with your doctor Rx Instructions: TAKE 1 TABLET BY MOUTH TWICE A DAY Date of admission: 04/14/25 18:56 Primary Care Provider: Niall Figueredo Admitting Provider: Lawrence Almonte Attending physician on admission: Lawrence Almonte Condition: Stable Hospitalist MIPS Heart Failure (Exclusion) Patient has history of Heart Transplant or Left Ventricular Assistive Device?: No IF YES, STOP HERE Heart Failure (Qualifier) Patient has current or prior documentation of LVEF less than or equal to 40%, or mod/servere depressed LVSF?: No IF NO, STOP HERE
--- NOTE | 2025-04-25 08:02 | PC.NURSE ---
Blood cx show no growth. Dr. Gage welch.
== END 2025-04-16 13:00 | disposition home or self-care (01) ==
LOC: ANHED 16:18 → ANHIMU 20:03 → ANH3MEDSUR 04-16 00:20
PROVIDERS: Emergency Medicine; Nurse Practitioner; Obstetrics & Gynecology; Admitting Provider Internal Medicine; Emergency Provider Emergency Medicine; PCP Family Medicine; Visit Provider Internal Medicine
DX: K57.92 Diverticulitis of intestine, part unspecified, without perforation or abscess without bleeding (principal); N83.202 Unspecified ovarian cyst, left side; I12.9 Hypertensive chronic kidney disease with stage 1 through stage 4 chronic kidney disease, or unspecified chronic kidney disease; N18.32 Chronic kidney disease, stage 3b; R25.1 Tremor, unspecified; E55.9 Vitamin D deficiency, unspecified; F41.1 Generalized anxiety disorder; E78.5 Hyperlipidemia, unspecified; I48.91 Unspecified atrial fibrillation; I25.10 Atherosclerotic heart disease of native coronary artery without angina pectoris; K21.9 Gastro-esophageal reflux disease without esophagitis; I25.2 Old myocardial infarction; Z95.1 Presence of aortocoronary bypass graft; Z79.02 Long term (current) use of antithrombotics/antiplatelets
CPT/HCPCS: 36415; 70450; 71046; 74177; 76857; 80048; 80053; 82378; 83690; 84484; 85025; 85027; 85610; 85730; 86301; 86304; 93005; 96365; 96366; 96367; 96375; 96376; 99285; A9270; G0378; J0360; J0696; J1836; Q9967